=== PATIENT | female | born 1940 | race Caucasian/White ===

== ENCOUNTER 2019-09-21 08:48 | Outpatient (CLI) | payer MEDICARE, SELFPAY ==
--- NOTE | ~2019-09-21 | MR_ITS ---
EXAMINATION: MR brain/brain stem wo con DATE: 09/21/2019 09:41 INDICATION: Headache. TECHNIQUE: Magnetic resonance imaging (MRI) of the brain and brainstem was performed without intraven ous contrast. Sequences included sagittal and axial T1-weighted SE, axial diffusion-weighted FS SE, a xial T2*-weighted GRE, axial T2-weighted FLAIR Propeller, and axial T2-weighted Propeller. Apparent d iffusion coefficient (ADC) maps were created. COMPARISON: CT dated 06/25/2015 FINDINGS: Mild generalized atrophy. No acute intracranial infarction or hemorrhage. Structures of the posterior fossa are within normal limits. There are scattered moderate periventricular and subcortic al white matter changes, most likely related to small vessel ischemic disease (microangiopathy). Midl ine sagittal images are unremarkable. Orbits are symmetric without disconjugate gaze. Paranasal sinus es are unremarkable. IMPRESSION: 1. No acute intracranial abnormality. 2: Chronic age-related findings. Reviewed, dictated and finalized at location A.
== END 2019-09-21 08:49 | disposition home or self-care (01) ==
PROVIDERS: PCP Internal Medicine; Visit Provider Internal Medicine
DX: R51 Headache (principal)
CPT/HCPCS: 70551

== ENCOUNTER 2021-02-19 10:01 | Outpatient (CLI) | payer MEDICARE, SELFPAY ==
--- NOTE | 2021-02-19 11:06 | ECG_ITS ---
Measurements Intervals [place] Rate: 69 P: 42 HI: 170 QRS: -60 QRSD: 131 T: 44 QT: 377 QTc: 405 Interpretive Statements SINUS RHYTHM RIGHT BUNDLE BRANCH BLOCK LEFT ANTERIOR FASCICULAR BLOCK ABNORMAL ECG Electronically Signed On 02-19-2021 15:39:20 CDT by Rivera Henley D.O.
[2021-02-19 11:56] LABS: Basophils Absolute Auto 0.1 K/mm3 (0.0-0.1); Basophils Percent Auto 1.4 % (0.2-1.2); Eosinophils Absolute Auto 0.2 K/mm3 (0-0.3); Eosinophils Percent Auto 3.8 % (0-4.4); Hematocrit 41.7 % (37.0-47.0); Hemoglobin 13.4 g/dL (12.0-15.0); Immature Granulocyte Absolute 0.01 K/mm3 (0.00-0.031); Immature Granulocyte Percent A 0.2 % (0-0.5); Lymphocytes Absolute Auto 1.35 K/mm3 (0.9-3.2); Lymphocytes Percent Auto 23.5 % (18.3-44.2); Mean Corpuscular HGB Conc 32.1 g/dl (32-36); Mean Corpuscular Hemoglobin 32.4 pg (26-34); Mean Platelet Volume 11.1 fl (7.4-10.4); Monocytes Absolute Auto 0.6 K/mm3 (0.1-0.6); Neutrophils Absolute Auto 3.5 K/mm3 (1.3-6.7); Neutrophils Percent Auto 60.1 % (45.5-73.1); Platelet Count Result 257 k/mm3 (150-375); Red Blood Count 4.13 M/mm3 (4.2-5.4); Red Cell Distribution Width 12.5 % (11.5-14.5); White Blood Count 5.7 K/mm3 (4.5-10.0)
[2021-02-19 12:04] LABS: Urine Cotinine NEGATIVE
[2021-02-19 12:06] LABS: Hemoglobin A1C 5.3 % (<5.7)
[2021-02-19 12:09] LABS: Add Urine Microscopic? YES; Albumin Level 4.4 g/dL (3.5-5.1); Anion Gap 8 mmol/L (8-16); Appearance Urine Cloudy (Clear); Bilirubin Urine Negative (Negative); Blood Urea Nitrogen 31 mg/dL (7-17); Blood Urine Negative (Negative); Calcium 10.5 mg/dL (8.4-10.2); Carbon Dioxide 29 mmol/L (22-30); Chloride 103 mmol/L (98-107); Color Urine Yellow (Yellow); Estimated Glomerular Filt Rate 36; Glucose 86 mg/dL (65-110); Glucose Urine UA Negative (Negative); Ketones Urine Negative (Negative); Leukocyte Esterase Ur 2+ LEU/UL (Negative); Mucus Urine Rare /lpf; Nitrate Urine Positive (Negative); Potassium 4.9 mmol/L (3.4-5.0); Protein Urine Negative (Negative); RBC Urine 0-2 /hpf (0-2); Sodium 140 mmol/L (137-145); Specific Grav Ur 1.012 (1.001-1.035); Squamous Epithelial Cell Urine Rare /hpf (Few); Urobilinogen Urine Negative mg/dL (<2.0); WBC Urine 16-20 /hpf
[2021-02-19 12:21] LABS: INR 0.9; Prothrombin Time 12.4 Seconds (11.1-14.7)
== END 2021-02-19 10:02 | disposition home or self-care (01) ==
LOC: ANHSURGERY 10:06
PROVIDERS: PCP Internal Medicine; Visit Provider Orthopaedic Surgery
DX: M17.11 Unilateral primary osteoarthritis, right knee (principal); Z01.818 Encounter for other preprocedural examination; I45.10 Unspecified right bundle-branch block; I44.4 Left anterior fascicular block
CPT/HCPCS: 80048; 80307; 81001; 82040; 83036; 85025; 85610; 85730; 87077; 87081; 87086; 87088; 93005

== ENCOUNTER 2021-03-04 09:45 | Outpatient (CLI) | payer MEDICARE, SELFPAY ==
[2021-03-04 11:18] LABS: Albumin Level 4.8 g/dL (3.5-5.1); Anion Gap 13 mmol/L (8-16); Blood Urea Nitrogen 24 mg/dL (7-17); Calcium 11.1 mg/dL (8.4-10.2); Carbon Dioxide 24 mmol/L (22-30); Chloride 101 mmol/L (98-107); Estimated Glomerular Filt Rate 39; Glucose 117 mg/dL (65-110); Phosphorus 4.7 mg/dL (2.5-4.5); Potassium 5.1 mmol/L (3.4-5.0); Sodium 138 mmol/L (137-145)
[2021-03-04 12:08] LABS: Erythrocyte Sedimentation Rate 20 mm/hr (0-20)
[2021-03-04 13:55] LABS: Creatinine Urine 120.9 mg/dL; Total Protein Urine Random 14 mg/dL; Ur Ttl Prot Creatinine Ratio 0.12 mg/mg (0-0.20)
[2021-03-04 14:07] LABS: Add Urine Microscopic? YES; Appearance Urine Cloudy (Clear); Bilirubin Urine Negative (Negative); Blood Urine Negative (Negative); Color Urine Yellow (Yellow); Glucose Urine UA Negative (Negative); Ketones Urine Negative (Negative); Leukocyte Esterase Ur 3+ LEU/UL (NEGATIVE); Mucus Urine Rare /lpf; Nitrate Urine Negative (Negative); Protein Urine Negative (Negative); RBC Urine 0-2 /hpf (0-2); Specific Grav Ur 1.012 (1.001-1.035); Squamous Epithelial Cell Urine Many /hpf (Few); Urobilinogen Urine Negative mg/dL (<2.0)
[2021-03-05 12:09] LABS: Complement C3 114 mg/dL (88-165)
[2021-03-07 21:18] LABS: Complement Total CH50 >60 U/mL (31-60)
[2021-03-08 04:23] LABS: Kappa\\Lambda Light Chains 1.77 (0.26-1.65)
== END 2021-03-04 09:46 | disposition home or self-care (01) ==
PROVIDERS: Visit Provider Internal Medicine Nephrology
DX: R94.4 Abnormal results of kidney function studies (principal); N39.0 Urinary tract infection, site not specified
CPT/HCPCS: 36415; 80069; 81001; 82570; 83883; 84156; 85652; 86038; 86160; 86162; 87086

== ENCOUNTER → 2021-03-04 13:12 | Outpatient (CLI) | payer MEDICARE, SELFPAY ==
--- NOTE | ~2021-03-04 | US_ITS ---
US renal BI 03/04/2021 13:39 Procedure: Realtime transabdominal ultrasound of the kidneys and bladder. Indication: Abnormal renal function Comparison: No prior studies for comparison. Findings: Renal echotexture is normal bilaterally without hydronephrosis, contour deforming mass or r enal calculus. There is a 1.7 cm hypoechoic mass of the left kidney with low-level internal echoes. T here is no enhanced or transmission. The right kidney measures 8.7 cm and left kidney measures 10.3 c m. Bladder within normal limits. Multiple liver cysts are incidentally noted. Impression: 1: Hypoechoic 1.7 cm left renal mass, likely a complicated cyst. Correlation with CT abdomen with/wit hout contrast recommended. 2: Liver cysts. Reviewed, dictated and finalized at location A. REPAIRER Impression: 1: Hypoechoic 1.7 cm left renal mass, likely a complicated cyst. Correlation wi th CT abdomen with/without contrast recommended. 2: Liver cysts.
== END ==
PROVIDERS: PCP Internal Medicine; Visit Provider Internal Medicine Nephrology
DX: R94.4 Abnormal results of kidney function studies (principal); K76.89 Other specified diseases of liver; N28.89 Other specified disorders of kidney and ureter
CPT/HCPCS: 76775

== ENCOUNTER 2021-03-06 10:24 | Outpatient (CLI) | payer MEDICARE, SELFPAY ==
[2021-03-06 11:27] LABS: Hemoglobin 12.6 g/dL (12.0-15.0); Mean Corpuscular HGB Conc 33.2 g/dl (32-36); Mean Corpuscular Hemoglobin 31.7 pg (26-34); Mean Corpuscular Volume 95.5 fl (80-100); Mean Platelet Volume 10.4 fl (7.4-10.4); Platelet Count Result 341 k/mm3 (150-375); Red Blood Count 3.98 M/mm3 (4.2-5.4); Red Cell Distribution Width 12.2 % (11.5-14.5); White Blood Count 11.1 K/mm3 (4.5-10.0)
[2021-03-06 11:40] LABS: Albumin Level 4.6 g/dL (3.5-5.1); Anion Gap 9 mmol/L (8-16); Blood Urea Nitrogen 21 mg/dL (7-17); Carbon Dioxide 27 mmol/L (22-30); Chloride 95 mmol/L (98-107); Estimated Glomerular Filt Rate 43; Glucose 83 mg/dL (65-110); Potassium 4.4 mmol/L (3.4-5.0); Sodium 131 mmol/L (137-145)
[2021-03-06 11:43] LABS: Creatinine Urine 293.7 mg/dL
[2021-03-06 11:44] LABS: Add Urine Microscopic? YES; Appearance Urine Cloudy (Clear); Bilirubin Urine Negative (Negative); Blood Urine Negative (Negative); Color Urine Yellow (Yellow); Glucose Urine UA Negative (Negative); Hyaline Casts Urine 30-49 /lpf; Ketones Urine Trace mg/dL (Negative); Leukocyte Esterase Ur 3+ LEU/UL (NEGATIVE); Mucus Urine Rare /lpf; Nitrate Urine Negative (Negative); Protein Urine 1+ mg/dL (Negative); Sodium Urine Random 23 meq/L; Specific Grav Ur 1.015 (1.001-1.035); Squamous Epithelial Cell Urine Many /hpf (Few); Urobilinogen Urine Negative mg/dL (<2.0)
[2021-03-06 11:51] LABS: Parathyroid Intact 55.9 pg/mL (7.5-53.5)
[2021-03-06 12:44] LABS: Vitamin D 25 Hydroxy 69.6 ng/mL
[2021-03-08 15:51] LABS: Calcium/Creatinine Ratio, Ur 19 mg/g creat (10-320); Urine Calcium, Random 4.5 mg/dL (***); Urine Creatinine, Random 237 mg/dL (20-275)
[2021-03-09 16:39] LABS: Vitamin A 51 mcg/dL (38-98)
[2021-03-10 00:06] LABS: Vitamin D 1,25 (OH)2 Total 36 pg/mL (18-72); Vitamin D2 1,25 (OH)2 <8 pg/mL; Vitamin D3 1,25 (OH)2 36 pg/mL
[2021-03-12 01:01] LABS: Angiotensin Converting Enzyme 40 U/L (9-67)
== END 2021-03-06 10:25 | disposition home or self-care (01) ==
PROVIDERS: PCP Internal Medicine; Visit Provider Internal Medicine Nephrology
DX: E83.52 Hypercalcemia (principal); N39.9 Disorder of urinary system, unspecified; N39.0 Urinary tract infection, site not specified
CPT/HCPCS: 36415; 80069; 81001; 82164; 82306; 82310; 82570; 82652; 83970; 84300; 84590; 85027; 86334; 86335; 87086

== ENCOUNTER 2021-03-27 16:17 | Inpatient (IN) | payer MEDICARE, SELFPAY ==
[2021-02-19 10:34] VITALS: BP 126/56; PULSE 52; RESP 18; TEMP 36.6; O2SAT 100; BMI 27.2
[2021-03-19 09:19] VITALS: BMI 27.6
--- NOTE | 2021-03-19 09:35 | PC.NURSE ---
Report to the Outpatient Waiting Room, entrance under the green pavilion located off [facility], at time _0900_ on date _03/26/21_. OR Time: _1100 AM_. - You and your visitor will be asked a series of questions to screen for COVID 19 for your protection. - A mask is required within the hospital. - Only one visitor is allowed at this time. Patient visitors will be guided where to wait when not with patient. Preoperative COVID Testing Requirements: No COVID Test needed if: (proof is required; if not received patient will have Rapid Test prior to entry) - Patient has received COVID Vaccine at least 14 days prior to procedure date or - Patient has positive COVID test result within last 90 days of surgery date. COVID Test needed if above criteria is not met If not COVID vaccinated a COVID test must be conducted within 72 hours of surgery and patient is asked to isolate self from time of testing until procedure. You will go to the [facility] for your COVID testing. The [facility] site is located at the corner of [address] [facility]. You will only be called if COVID results are positive and your surgeon may reschedule your elective surgery date. Patients may have clear liquids (water, carbonated beverages, clear teas, apple juice) until 3 hours prior to surgery (0800 AM) with a maximum of 20 ounces. - No food from midnight until time of surgery - Infants may have breast milk until 4 hours before surgery, infant formula 6 hours prior to surgery. - Children will be allowed to drink immediately following surgery. If applicable, please bring a bottle or sippy cup to assist with drinking. Juice, water, soda, and popsicles are readily available. For infants on formula, please bring formula the day of surgery. Pacifiers are allowed. Take the following medications with a SIP of water the morning of surgery: _PROPRANOLOL, SERTRALINE____ Medications to discontinue per physician __ASPIRIN PER DR. COWAN, ALL VITAMINS AND SUPPLEMENTS 3 DAYS PRIOR TO SURGERY Date to take last dose_VITAMINS & SUPPLEMENTS 03/22/21___ Please no make-up, nail vietnamese, hairspray, perfume, deodorant, or body powder the day of surgery. No jewelry (including any body piercings) or valuables the day of surgery, leave them at home. Please take a shower or bath the night before, or the morning of, surgery with an antibacterial soap. Wear comfortable, loose fitting clothing. Children are encouraged to wear pajamas. - Jewelry must be removed prior to entering the operating room. Rings and piercings that are not removed may be cut off. - The hospital will not accept responsibility for valuables. - Please leave all valuables, including medications, at home the day of surgery. If you are going home after surgery, a licensed driver's education instructor must drive you home. - NO public transportation without another adult. - We recommend that an adult stay with you for 24 hours following discharge. - We also recommend that you do not drive, make important decision, drink alcoholic beverages, or take any drugs that were not prescribed by your health care provider for at least 24 hours after your discharge time. For Pediatric surgeries, we recommend two adults accompany the child home (only one inside the building at this time). Follow any additional instructions given to you from your surgeon. Telephone instructions given to ____PT and asked if any additional questions and then verbalized understanding. Patient advised to call surgeon office or pre surgery nurse liaison [phone] if any additional questions.
[2021-03-26] VITALS (19 sets, daily range): BP systolic 80–157; BP diastolic 40–80; PULSE 65–83; RESP 14–22; TEMP 36.2–36.7; O2SAT 95–100
--- NOTE | 2021-03-26 07:15 | WPDHPUPDATE1 ---
History and Physical Update Update Date/Time: 03/26/21 07:15 History and Physical has been reviewed, including an updated exam of the patient. There are NO changes in the patient's condition. Risks, benefits, and alternatives have been discussed and questions answered. Patient agrees to proceed with procedure.
[2021-03-26] MEDS: LACTATED RINGERS 1,000 ML 30 ML IV CONT (10:00)
[2021-03-26] MEDS: TRANEXAMIC ACID 1,000MG/ISO100 1,000 MG/100 ML BAG 200 MG IVPB (10:02)
[2021-03-26] MEDS: ACETAMINOPHEN 500 MG TABLET 1000 MG PO (10:02)
--- NOTE | 2021-03-26 10:09 | WPDANESEPPF ---
Anes - Initial Pre Proc Eval Procedure: Operation Date: 03/26/21 11:00 Proposed Procedures p Right Total Knee Arthroplasty - Gary Sexton MD Date/Time: 03/26/21 10:09 Surgeon: Gary Sexton MD Pre Op Diagnosis: Right knee djd Patient Data Age: 80 Gender: F Height: 1.63 m Weight: 73 kg Last Vital Signs Temp 36.6 C 02/19/21 10:34 Pulse 52 L 02/19/21 10:34 Resp 18 02/19/21 10:34 BP 126/56 L 02/19/21 10:34 Pulse Ox 100 02/19/21 10:34 Allergies Allergy/AdvReac Type Severity Reaction Status Date / Time gabapentin Allergy Unknown UNKNOWN-PT Verified 03/19/21 09:17 UNABLE TO RECALL prochlorperazine Allergy Unknown Unknown-PT Verified 03/19/21 09:17 UNABLE TO RECALL tramadol Allergy Unknown UNKNOWN-PT Verified 03/19/21 09:17 UNABLE TO RECALL Home Medications Medication Instructions Recorded Confirmed Type atorvastatin 40 mg tablet 40 mg PO HS 06/08/19 03/19/21 History docusate sodium [Stool Softener] 50 mg PO HS 06/08/19 03/19/21 History doxepin 100 mg capsule 100 mg PO HS 06/08/19 03/19/21 History multivitamin 1 cap PO DAILY 06/08/19 03/19/21 History chlorhexidine gluconate 4 % 1 applic TOPICAL ONCE #237 ml 01/29/21 03/19/21 Rx topical liquid memantine 10 mg PO BID 02/19/21 03/19/21 History propranolol 60 mg PO QAM 02/19/21 03/19/21 History sertraline 50 mg PO QAM 02/19/21 03/19/21 History vitamin A-vitamin C-vit E-min 1 tablet PO QAM 02/19/21 03/19/21 History [Ocuvite] cholecalciferol (vitamin D3) 25 mcg PO DAILY 02/20/21 03/19/21 History [Vitamin D3] aspirin 81 mg tablet,delayed 81 mg PO DAILY 03/01/21 03/19/21 History release doxepin 25 mg capsule 10 mg PO HS cap 03/01/21 03/19/21 History Patient hx anesthesia problems: none Family hx anesthesia problems: none Results Review: All pre-operative results and documents have been reviewed as part of the pre-operative evaluation. FORMERLY [facility], [facility]–1983 Past Medical History Medical History Bilateral knee pain Hypertension Left knee DJD Right knee DJD Shortness of breath Varicose vein of leg Vision abnormalities Weight gain Surgical History Surgical History H/O Spinal surgery 2 operations- Dr. Dmitri Villasenor at [facility] Orthopaedic H/O: hysterectomy 1968 History of bladder surgery [id number] History of cardiac radiofrequency ablation (RFA) 2015, Dr. Jon Mota at [place], [place] [facility] Hx of tonsillectomy 1947 Family History Family History Other Heart disease Social History Social History Smoking status: Never smoker Second hand tobacco smoke exposure: No Additional smoking assessment comments: PT DENIES ALL FORMS OF TOBACCO USE Alcohol intake: never Substance use: never Substance use type: does not use Living arrangements: alone Spiritual care concerns: No Anes - Eval Final PreProcedure Day of Procedure 03/26/21 10:09 Patient weight: overweight Heart: regular rate and rhythm Lungs: clear to auscultation Airway: Mallampati scale class II Neurological: other (alert) Last oral intake: >/= 8 hours ASA classification: III Emergent: no Anesthetic plan: proceed Anesthesia type and monitoring: general LMA and standard monitoring Results Review: All pre-operative results and documents have been reviewed as part of the pre-operative evaluation. Informed Consent: The patient's anesthetic plan and its attendant risks and benefits were discussed with the patient/family/POA. Questions were solicited and answers provided to the satisfaction of the patient/family/POA.
--- NOTE | 2021-03-26 10:35 | WPDANESPNB ---
Anes - Peripheral Nerve Block Date/Time: 03/26/21 10:35 I have discussed with the patient/family/POA the placement of a peripheral nerve block for post-operative pain management, including associated risks, benefits, complications, and side effects. Alternative methods of post-operative analgesia were detailed. Questions were solicited and answers provided to the satisfaction of the patient/family/POA. Time-Out: A pre-procedural Time-Out was completed immediately before starting the procedure and confirmed: Patient Identification, Site, Procedure, Patient Position and the Availability of Requisite Equipment. Clinical Indications: Acute post-operative pain management requested by the operative surgeon. Nerve Block Insertion Note Anes-nerve block: adductor canal right Patient position: supine Skin prep: chlorhexidine Needle: 22 gauge, stimulating, insulated echogenic needle. Needle length: 80 mm Technique: ultrasound Technique comment: fent 50mcg Injectate: bupivacaine 0.5% with epi 5 mcg/ml (30ml no epi) and dexamethasone (mg) (4) Observations: tolerated well Complications: none Procedure start time:: 1030 Procedure end time:: 1033
[2021-03-26] MEDS: ceFAZolin 2 GM/D5W 50 ML 2 GM/50 ML BAG IVPB ×2 (10:40→18:10)
--- NOTE | 2021-03-26 13:00 | SUR.PHASEI ---
1256 xrays right knee done. called dr agudelo about arthrymias ,states apc and aware.
--- NOTE | 2021-03-26 13:09 | P.OP_ITS ---
Procedure Note - Detailed Date of Procedure 03/26/21 Pre-op Diagnosis Right knee djd Post-op Diagnosis same Procedure Performed R TKA Surgeon Gary Sexton MD Anesthesia general Description of Procedure THE RIGHT KNEE WAS PREPPED AND DRAPED IN THE STERILE FASHION. A MIDLINE SKIN INCISION WAS MADE. A MEDIAL PARAPATELLAR ARTHROTOMY WAS MADE. THE PATELLA WAS EVERTED. THERE WAS TRICOMPARTMENT DJD. THERE WAS SEVERE PATELLA DJD SIGNIFICANT WEAR. AN INTRAMEDULLARY EWA WAS PLACED IN THE FEMUR. A DISTAL FEMORAL CUT WAS MADE IN 5 DEGREES OF VALGUS REMOVING APPROXIMATELY 9 MM OF BONE FROM THE DISTAL FEMUR. THE FEMUR WAS SIZED TO 65. A 65 FEMORAL CUTTING BLOCK WAS PLACED IN 3 DEGREES OF EXTERNAL ROTATION AND IN ALIGNMENT WITH DOUG'S LINE AND THE TRANSEPICONDYLAR AXIS. ANTERIOR POSTERIOR AND CHAMFER CUTS WERE MADE. THE CUTS WERE EXCELLENT. NEXT AN INTRAMEDULLARY CUTTING GUIDE WAS PLACED IN THE TIBIA. A TRANS TIBIAL CUT WAS MADE ALONG THE LONG AXIS OF THE TIBIA. APPROXIMATELY 10 MM OF BONE WAS REMOVED FROM THE HIGH SIDE OF THE TIBIA. THE TIBIA WAS THEN PLANED TO A SMOOTH SURFACE. POSTERIOR FEMORAL OSTEOPHYTES WERE REMOVED FROM THE FEMORAL CONDYLES. A 71 TIBIAL TRIAL WAS PLACED IN ALIGNMENT WITH THE 1/3 MEDIAL ASPECT OF THE TIBIAL TUBERCLE. THEN A 65 FEMORAL TRIAL COMPONENT WAS PLACED. BOTH HAD EXCELLENT FITS. EVENTUALLY A 10 MM CR POLYETHYLENE TRIAL COMPONENT WAS PLACED. THE KNEE WAS TAKEN THROUGH A RANGE OF MOTION. THE KNEE CAME OUT TO FULL EXTENSION. THERE WAS NO ABNORMAL TILT TO THE PATELLA. THERE WAS GOOD A/P AND VARUS/VALGUS STABILITY. THERE WAS NO EXCESSIVE ROLL BACK WITH FLEXION. THE TRIAL COMPONENTS WERE REMOVED. THEN A 65 FEMORAL COMPONENT AND 71 TIBIAL COMPO NENT WITH A 10 CR POLYETHYLENE COMPONENT WERE CEMENTED INTO PLACE. ONCE THE CEMENT WAS HARD THE KNEE WAS TAKEN THROUGH A ROM AGAIN AND FOUND TO BE STABLE WITH NO PATELLA TILT NO EXCESSIVE ROLL BACK WITH FLEXION AND GOOD STABILITY WITH COMPLETE AND FULL EXTENSION. THE KNEE WAS IRRIGATED WITH STERILE BETADINE AND WATER FOR ABOUT 3 MINUTES. THE BLEEDERS WERE CAUTERIZED. THE ARTHROTOMY WAS REPAIRED WITH NUMBER 1 VICRYL. THE SUB CUTANEOUS LAYER WITH 2-0 VICRYL AND THE SKIN WITH RUBA. THE WOUND WAS WASHED AND A STERILE DRESSING WAS APPLIED. PATIENT WAS EXTUBATED. Estimated Blood Loss -100.0 Pathology none sent Complications No immediate complications Condition stable Disposition PACU
--- NOTE | 2021-03-26 16:48 | ADMGEN ---
This patient, Vi Palmer, was admitted to Medical Room 246-01. Patient/family oriented to hospital policies and general routines including ID bracelet, bed and alarms, visiting hours, pain management, procedures, bathroom and other care routines, personal items, smoking policy, room service/diet, and visiting hours. Information on how to activate the Rapid Response Team has been discussed. Patient/Family are encouraged to report perceived risks to care and to ask questions if they do not understand what they are told or what they should do.
[2021-03-26] MEDS: oxyCODONE/ACETAMINOPHEN (*CRX) 5-325 MG TABLET 1 TABLET PO ×2 (16:58→21:45)
[2021-03-26] MEDS: CELECOXIB 200 MG CAPSULE PO (18:10)
[2021-03-26] MEDS: SODIUM CHLORIDE 0.9% IV 1,000 ML 125 ML IV CONT (18:52)
--- NOTE | 2021-03-26 19:00 | WPDCN ---
Assessment and Plan Assessment and plan (1) Right knee DJD: Qualifiers: Osteoarthritis type: primary Qualified Code(s): M17.11 - Unilateral primary osteoarthritis, right knee Code(s): M17.11 - Unilateral primary osteoarthritis, right knee Status: Acute Assessment and Plan: Postoperative day 0 status post right total hip arthroplasty. Wound care, pain control, and DVT prophylaxis will be to Dr. Sexton. (2) Hypertension: Code(s): I10 - Essential (primary) hypertension Status: Chronic Assessment and Plan: Blood pressures have been soft this evening and I will give her a bolus of normal saline. She seems asymptomatic with this. (3) Hyperlipidemia: Code(s): E78.5 - Hyperlipidemia, unspecified Status: Acute Assessment and Plan: Continue statin check LFTs in a.m. (4) Memory loss: Code(s): R41.3 - Other amnesia Status: Acute Assessment and Plan: Initiate fall precautions. Continue memantine. (5) Depression with anxiety: Code(s): F41.8 - Other specified anxiety disorders Status: Acute Assessment and Plan: No acute issues. Continue sertraline and doxepin Additional Plan Thank you for allowing us to participate in this patient's care. Please do not hesitate to contact us with any questions. Supervising physician for this medical consultation is Dr. Jamin Rust. HPI Data of Consult Date/Time: 03/26/21 19:00 Requesting Physician: Gary Sexton MD Primary Care Provider: Srinivasan PringleMD Consult Narrative Narrative: This is a very pleasant 80-year-old female with hypertension, hyperlipidemia, memory loss, and degenerative joint disease whom the hospitalist service has been consulted for postoperative medical management. She has had longstanding pain in her right knee that has been amenable to conservative outpatient treatment and thus she elected for replacement today. Her surgery was performed under general anesthesia with no immediate complications documented an estimated blood loss of 100 mL. At the time my evaluation her pain is pretty well controlled and she rates it a 3/10 and she describes it as an aching discomfort. Her appetite has been good postoperatively and she ate nearly 100% of her dinner this evening. She denies fever, chills, sweats, chest pain, shortness of breath, nausea, and vomiting. She also denies paresthesias, skin color, and temperature changes distal to the surgical site. On discharge I believe she is going to a swing bed closer to her home in [place]. Review of Systems Review of Systems: Twelve systems were reviewed. No recent cold or flu symptoms. She denies cough and shortness of breath. No history of venous thromboembolism. Except as documented, all other systems were reviewed and are negative. ON LICENSE OF [facility] Past Medical History Medical History (Updated 03/26/21 @ 23:19 by Ebony Ortiz PA-C) Depression with anxiety Hyperlipidemia Hypertension Memory loss Stress incontinence Varicose vein of leg Surgical History Surgical History (Updated 03/26/21 @ 23:16 by Ebony Ortiz PA-C) History of arthroplasty of right knee (03/26/21) History of bladder surgery 1990 and 1992 History of cardiac radiofrequency ablation (RFA) 2016, Dr. Jon Mota at [facility] . History of hysterectomy (1967) History of spinal surgery x2 History of tonsillectomy (1947) Family History Family History Other Heart disease Social History Social History (Updated 03/26/21 @ 23:17 by Ebony Ortiz PA-C) Social History: Surrogate decision maker: Jennifer Seay, granddaughter. Code status: Full code. Smoking status: Never smoker Second hand tobacco smoke e
[2021-03-26] MEDS: SODIUM CHLORIDE 0.9% IV 500 ML IV CONT (19:16)
[2021-03-26] MEDS: SENNA/DOCUSATE SODIUM TABLET 2 TAB PO (21:39)
[2021-03-26] MEDS: MEMANTINE 10 MG TABLET PO (21:39)
[2021-03-26] MEDS: ATORVASTATIN 40 MG TABLET PO (21:39)
[2021-03-26] MEDS: FAMOTIDINE 20 MG TABLET PO (21:39)
[2021-03-26] MEDS: DOXEPIN HCL 10 MG CAPSULE PO (21:39)
[2021-03-26] MEDS: DOXEPIN HCL 25 MG CAPSULE 100 MG PO (21:39)
[2021-03-26] MEDS: DOCUSATE SODIUM 100 MG CAPSULE PO (21:39)
[2021-03-27] VITALS (11 sets, daily range): BP systolic 86–133; BP diastolic 40–81; PULSE 69–75; RESP 12–20; TEMP 35.8–36.8; O2SAT 88–100
--- NOTE | ~2021-03-27 | XR_ITS ---
EXAMINATION: XR knee RT 2V DATE: 03/26/2021 13:10 LEGAL TRANSCRIBER INDICATION: Right total knee arthroplasty TECHNIQUE: 2 views right knee FINDINGS: There is a right total knee arthroplasty in expected position. Subcutaneous gas with fluid and air in the joint and overlying skin aung are consistent with recent surgery. No evidence of p eriprosthetic fracture. IMPRESSION: 1. Recent right total knee arthroplasty. Reviewed, dictated and finalized at location B. L TRANSCRIBER
--- NOTE | ~2021-03-27 | US_ITS ---
EXAMINATION: US carotid duplex BI DATE: 03/28/2021 15:22 INDICATION: Dizziness. TECHNIQUE: Grayscale, color Doppler, and pulsed Doppler images of the cervical carotid arteries were obtained. The degree of vessel stenosis is placed in one of the following categories: normal, <50%, 5 0-69%, >=70% but less than near-occlusion, near-occlusion, or total occlusion. Note that percent sten osis relative to normal distal artery lumen diameter is indirectly measured from velocity measurement s as described by Zeferino, et al. Radiology 2003; 229:340-346. COMPARISON: Neck CTA 07/19/2015 FINDINGS: RIGHT: The right common carotid artery (CCA) peak systolic velocity (PSV) is 109 cm/s. The right internal ca rotid artery (ICA) PSV is 114 cm/s. The right ICA end-diastolic velocity (EDV) is 22 cm/s. The right ICA/CCA PSV ratio is 1.1. Grayscale and color Doppler images yield an estimate of <50% diameter reduc tion from plaque in the ICA. There is antegrade flow in the right vertebral artery. LEFT: The left CCA PSV is 122 cm/s. The left ICA PSV is 109 cm/s. The left ICA EDV is 32 cm/s. The left ICA /CCA PSV ratio is 0.9. Grayscale and color Doppler images yield an estimate of <50% diameter reductio n from plaque in the ICA. There is antegrade flow in the left vertebral artery. IMPRESSION: 1. <50% stenosis in the right internal carotid artery. 2. <50% stenosis in the left internal carotid artery. Reviewed, dictated and finalized at location A. E GLASS INSTALLER
--- NOTE | ~2021-03-27 | XR_ITS ---
EXAMINATION: XR abdomen/kub 1V DATE: 03/30/2021 11:14 INDICATION: Abdominal pain. TECHNIQUE: A supine view of the abdomen was obtained. COMPARISON: None. FINDINGS: There are no dilated loops of bowel. There is a moderate volume of stool in the colon. Ther e are changes of anterior and posterior fusion procedures from L4 to S1. There is a 3 mm calcificatio n in left pelvis. IMPRESSION: 1. Normal bowel gas pattern. 2. 3 mm calcification in left pelvis, which may be a phlebolith or less likely a distal ureteral ston e. Reviewed, dictated and finalized at location A. REIGHT OPERATIONS AGENT IMPRESSION: 1. Normal bowel gas pattern. 2. 3 mm calcification in left pelvis, which may be a phlebolith or less likely a distal ureteral stone.
[2021-03-27] MEDS: ceFAZolin 2 GM/D5W 50 ML 2 GM/50 ML BAG IVPB ×2 (02:09→09:32)
[2021-03-27] MEDS: SODIUM CHLORIDE 0.9% IV 1,000 ML 125 ML IV CONT (05:53)
[2021-03-27 05:55] LABS: Basophils Percent Auto 0.3 % (0.2-1.2); Eosinophils Percent Auto 0.1 % (0-4.4); Hematocrit 30.8 % (37.0-47.0); Hemoglobin 9.8 g/dL (12.0-15.0); Immature Granulocyte Absolute 0.04 K/mm3 (0.00-0.031); Immature Granulocyte Percent A 0.3 % (0-0.5); Lymphocytes Absolute Auto 0.89 K/mm3 (0.9-3.2); Lymphocytes Percent Auto 7.6 % (18.3-44.2); Mean Corpuscular HGB Conc 31.8 g/dl (32-36); Mean Corpuscular Hemoglobin 31.9 pg (26-34); Mean Corpuscular Volume 100.3 fl (80-100); Mean Platelet Volume 11.7 fl (7.4-10.4); Monocytes Absolute Auto 1.2 K/mm3 (0.1-0.6); Monocytes Percent Auto 10.3 % (2.6-8.5); Neutrophils Absolute Auto 9.5 K/mm3 (1.3-6.7); Neutrophils Percent Auto 81.4 % (45.5-73.1); Platelet Count Result 167 k/mm3 (150-375); Red Blood Count 3.07 M/mm3 (4.2-5.4); Red Cell Distribution Width 12.5 % (11.5-14.5); White Blood Count 11.7 K/mm3 (4.5-10.0)
[2021-03-27] MEDS: ACETAMINOPHEN 500 MG TABLET 1000 MG PO ×2 (05:55→14:41)
[2021-03-27 06:18] LABS: Alanine Aminotransferase 15 U/L (4-35); Albumin Level 3.3 g/dL (3.5-5.1); Alkaline Phosphatase 55 U/L (38-126); Anion Gap 7 mmol/L (8-16); Aspartate Amino Transferase 25 U/L (14-36); Bilirubin,Total 0.4 mg/dL (0.2-1.3); Blood Urea Nitrogen 24 mg/dL (7-17); Calcium 8.6 mg/dL (8.4-10.2); Carbon Dioxide 20 mmol/L (22-30); Chloride 103 mmol/L (98-107); Estimated CRCL calculation 30 ml/min; Estimated Glomerular Filt Rate 48; Glucose 96 mg/dL (65-110); Magnesium 1.8 mg/dL (1.6-2.3); Potassium 3.9 mmol/L (3.4-5.0); Sodium 130 mmol/L (137-145)
--- NOTE | 2021-03-27 07:46 | PCOTNOTE ---
Attempted OT evaluation, per RN hold due to low BP. will follow and attempt at later time.
--- NOTE | 2021-03-27 08:00 | PM.IMPN ---
Progress Note: A&P Assessment and Plan (1) Hypotension: Code(s): I95.9 - Hypotension, unspecified Status: Acute Assessment and Plan: BP low at 86/46 Give 500ml fluid bolus Hold propanolol Trend BP Adjust therapy as needed (2) Right knee DJD: Qualifiers: Osteoarthritis type: primary Qualified Code(s): M17.11 - Unilateral primary osteoarthritis, right knee Code(s): M17.11 - Unilateral primary osteoarthritis, right knee Status: Acute Assessment and Plan: Postoperative day 1 status post right total hip arthroplasty Post op management per Dr. Sexton Wound care per ortho pain control: Percocet 1 tab PO Q4hr PRN, Nydia 7.5mg pO Q4hr PRN, Tylenol 1000mg PO Q6hr PRN Anti-emetic: Zofran 4mg IV Q4hr PRN Bowel maintenance: Senna, miralax, and colace Cefazolin x 3 bags DVT prophylaxis per ortho aspirin 650mg PO daily (3) Hypertension: Code(s): I10 - Essential (primary) hypertension Status: Chronic Assessment and Plan: Current BP is 86/46 Blood pressures have been soft normal saline 125ml/hr stopped this am asymptomatic Continue propanolol 60mg PO daily (4) Hyperlipidemia: Code(s): E78.5 - Hyperlipidemia, unspecified Status: Acute Assessment and Plan: Continue statin LFT ast/alt (5) Memory loss: Code(s): R41.3 - Other amnesia Status: Acute Assessment and Plan: Initiate fall precautions Patient aware of memory changes Sometimes has a hard time thinking about certain words Continue memantine (6) Depression with anxiety: Code(s): F41.8 - Other specified anxiety disorders Status: Acute Assessment and Plan: No acute issues Continue sertraline and doxepin Time Spent With Patient Time with patient: 25 - 35 minutes Subjective Date/time seen: 03/27/21 0800 Interval history: Date/Time: 03/26/21 19:00 Narrative: This is a very pleasant 80-year-old female with hypertension, hyperlipidemia, memory loss, and degenerative joint disease whom the hospitalist service has been consulted for postoperative medical management. She has had longstanding pain in her right knee that has been amenable to conservative outpatient treatment and thus she elected for replacement today. Her surgery was performed under general anesthesia with no immediate complications documented an estimated blood loss of 100 mL. At the time my evaluation her pain is pretty well controlled and she rates it a 3/10 and she describes it as an aching discomfort. Her appetite has been good postoperatively and she ate nearly 100% of her dinner this evening. She denies fever, chills, sweats, chest pain, shortness of breath, nausea, and vomiting. She also denies paresthesias, skin color, and temperature changes distal to the surgical site. On discharge I believe she is going to a swing bed closer to her home in [place]. Date/Time seen: 03/27/21 0800 Patient is sitting up in chair today. Blood pressure is noted to be low. Patient did state that she has experienced hypotension chronically. Patient said that she does get very dizzy at times however she did say that it comes and goes and sometimes she can go a month without experiencing any difficulties. Patient did state that when she does get dizzy she knows to sit back down. She was also advised to change positions slowly. Currently she has pain of 3/10 in her knee. She denies chest pain, shortness of breath, nausea, vomiting, diarrhea, constipation, abdominal pain. Patient does not know why she takes propanolol. She stated that she gets up from a heart doctor in [place]. Patient also concerned about her memory loss. Review of Systems Review of Systems: All systems reviewed & are unremarkable except as noted in HPI and below Exam Const: General: cooperative, healthy appearing, no acute distress, well developed, alert and awake Nutr
[2021-03-27] MEDS: polyethylene glycoL 3350 17 GM POWD.PACK PO (08:39)
[2021-03-27] MEDS: FAMOTIDINE 20 MG TABLET PO ×2 (08:40→21:20)
[2021-03-27] MEDS: MULTIVITAMINS THERAPEUTIC TAB (*BKC) 1 TABLET PO (08:40)
[2021-03-27] MEDS: SERTRALINE HCL 50 MG TABLET PO (08:40)
[2021-03-27] MEDS: OPTI-GEN TAB 1 TABLET PO (08:40)
[2021-03-27] MEDS: CELECOXIB 200 MG CAPSULE PO ×2 (08:40→17:17)
[2021-03-27] MEDS: MEMANTINE 10 MG TABLET PO ×2 (08:40→21:21)
[2021-03-27] MEDS: CHOLECALCIFEROL 1,000 UNITS TABLET 1000 UNITS PO (08:40)
[2021-03-27] MEDS: ASPIRIN 325 MG ENTERIC TABLET 650 MG PO (08:40)
[2021-03-27] MEDS: SENNA/DOCUSATE SODIUM TABLET 2 TAB PO (08:40)
[2021-03-27] MEDS: SODIUM CHLORIDE 0.9% IV 500 ML 999 ML IV CONT (08:41)
[2021-03-27 11:59] LABS: Glucose Point of Care 91 mg/dl (65-105)
--- NOTE | 2021-03-27 16:30 | PM.PNORT ---
Progress Note: A&P Additional Plan POD 1. WILL WATCH HER BP OVERNIGHT. MAY DC TMRW IF STABLE. Subjective Subjective Date/Time Seen: 03/27/21 1POD 1 DOING WELL. HER BP IS LOW. BP MEDS STOPPED. GOOD PROGRESS WITH PT, NO CALF PAIN Review of Systems Review of Systems: All systems reviewed & are unremarkable except as noted in HPI and below Exam Extrem: Other: VSS AFEBRILE DRESSING DRY NV INTACT NEG HOMANS SIGN, CALF SOFT NON TENDER Objective Data Vital Signs Vital Signs: Vital Signs - 24 hr 03/26/21 16:55 03/26/21 17:10 03/26/21 17:40 Temperature 36.4 C 36.2 C L 36.5 C Pulse Rate 76 71 71 Respiratory Rate 16 16 16 Blood Pressure 110/56 L 127/54 L 118/56 L Pulse Oximetry 99 99 98 03/26/21 18:40 03/26/21 20:50 03/27/21 00:42 Temperature 36.2 C L 36.3 C L 36.2 C L Pulse Rate 81 69 70 Respiratory Rate 20 18 20 Blood Pressure 80/42 L 90/40 L 94/40 L Pulse Oximetry 97 95 93 03/27/21 03:48 03/27/21 05:13 03/27/21 07:49 Temperature 36.0 C L Pulse Rate 71 70 Respiratory Rate 20 Blood Pressure 94/43 L 110/60 86/46 L Pulse Oximetry 93 03/27/21 09:40 03/27/21 10:31 03/27/21 14:09 Temperature 36.8 C 36.3 C L Pulse Rate 74 75 Respiratory Rate 16 12 Blood Pressure 114/46 L 110/60 133/46 L Pulse Oximetry 97 88 L Intake/Output Intake/Output: Intake & Output 03/24/21 03/25/21 03/26/21 03/27/21 23:59 23:59 23:59 23:59 Intake Total 800 1290 Balance 800 1290 Meds/Results Medications: Active Medications Generic Name Dose Route Start Last Admin Trade Name Freq PRN Reason Stop Dose Admin Acetaminophen 1,000 mg 03/26/21 16:24 03/27/21 14:41 Acetaminophen 500 Mg Tablet PO 1,000 mg Q6H PRN Administration Pain Rated 1-3 Aspirin 650 mg 03/27/21 09:00 03/27/21 08:40 Aspirin 325 Mg Enteric Tablet PO 650 mg DAILY JOSEPH Administration Atorvastatin Calcium 40 mg 03/26/21 21:00 03/26/21 21:39 Atorvastatin 40 Mg Tablet PO 40 mg HS JOSEPH Administration Celecoxib 200 mg 03/26/21 17:00 03/27/21 08:40 Celecoxib 200 Mg Capsule PO 200 mg BIDWM JOSEPH Administration Diazepam 5 mg 03/26/21 16:24 Diazepam (*Crx) 5 Mg Tablet PO Q8H PRN Spasms Diphenhydramine HCl 25 mg 03/26/21 16:24 Diphenhydramine Hcl Inj 50 Mg/Ml Vial IV PUSH Q6H PRN Itching Docusate Sodium 100 mg 03/26/21 21:00 03/26/21 21:39 Docusate Sodium 100 Mg Capsule PO 04/25/21 20:59 100 mg HS JOSEPH Administration Doxepin HCl 10 mg 03/26/21 21:00 03/26/21 21:39 Doxepin Hcl 10 Mg Capsule PO 10 mg HS JOSEPH Administration Doxepin HCl 100 mg 03/26/21 21:00 03/26/21 21:39 Doxepin Hcl 25 Mg Capsule PO 04/25/21 20:59 100 mg HS JOSEPH Administration Famotidine 20 mg 03/26/21 21:00 03/27/21 08:40 Famotidine 20 Mg Tablet PO 20 mg Q12HR JOSEPH Administration Sodium Chloride 1,000 mls @ 125 mls/hr 03/27/21 05:15 03/27/21 05:53 Normal Saline Iv IV CONT 125 mls/hr .Q8H JOSEPH Administration Memantine 10 mg 03/26/21 21:00 03/27/21 08:40 Memantine 10 Mg Tablet PO 10 mg Q12HR JOSEPH Administration Multivitamins Therapeutic 1 tablet 03/27/21 09:00 03/27/21 08:40 Multivitamins Therapeutic Tab (*Bkc) PO 1 tablet DAILY JOSEPH Administration Multivitamins/Minerals 1 tablet 03/27/21 09:00 03/27/21 08:40 Opti-Gen Tab PO 04/26/21 08:59 1 tablet QAM JOSEPH Administration Naloxone HCl 0.1 mg 03/26/21 16:24 Naloxone Hcl 0.4 Mg/Ml Vial IV PUSH Q2M PRN Opiate Reversal Ondansetron HCl 4 mg 03/26/21 16:24 Ondansetron Inj 4 Mg/2 Ml Vial IV PUSH Q4H PRN Nausea And Vomiting Oxycodone HCl 7.5 mg 03/26/21 16:24 Oxycodone Hcl (*Crx) 2.5 Mg Tab Ir PO Q4H PRN Pain Rated 7-10 Oxycodone/Acetaminophen 1 tablet 03/26/21 16:24 03/26/21 21:45 Oxycodone/Acetaminophen (*Crx) 5-325 Mg Tablet PO 1 tablet Q4H PRN Administration Pain Rated 4-6 Polyethylene Glycol 17 gm 12
[2021-03-27] MEDS: ATORVASTATIN 40 MG TABLET PO (21:20)
[2021-03-27] MEDS: DOXEPIN HCL 25 MG CAPSULE 100 MG PO (21:20)
[2021-03-27] MEDS: DOXEPIN HCL 10 MG CAPSULE PO (21:21)
[2021-03-28] VITALS (7 sets, daily range): BP systolic 85–144; BP diastolic 40–78; PULSE 48–103; RESP 18; TEMP 35.8–36.2; O2SAT 94–97
--- NOTE | 2021-03-28 | ECHO_ITS ---
Patient Info Name: Vi Palmer Age: 80 years : 1940 Gender: Female Ht: 64 in Wt: 153 lbs BSA: 1.79 m2 HR: 78 bpm BP: 86 / 46 mmHg Heart Rhythm: Indeterminant Technical Quality: Good Exam Date: 03/28/2021 3:29 PM Exam Location: [facility] Pulmonary Exam Room: 246 Patient Status: Inpatient Admit Date: 03/28/2021 Staff Ordering Physician: Severo Mijares Project Leader: CONCHITA Attending Provider: Gary Sexton MD Referring Physician: Dyllan LUU; Exam Type: CA echo doppler color flow Study Info Indications - HYPOTENSION Complete two-dimensional, color flow and Doppler transthoracic echocardiogram is performed. Summary 1. Complete two-dimensional, color flow and Doppler transthoracic echocardiogram is performed. 2. Normal left ventricular size with septal hypertrophy and hyperdynamic left ventricular systolic function. Estimated ejection fraction is greater than 70%. No segmental wall motion abnormalities. Diastolic function indeterminate. 3. Left atrial chamber dimension is mildly enlarged. 4. There is moderate aortic valve stenosis with a peak velocity of 331 cm/s. There is severe aortic valve calcification.The valve area is 1.0-1.1 cm2. Mean gradient 22 mmHg. 5. No pulmonary hypertension, estimated pulmonary arterial systolic pressure is 33 mmHg. 6. Echo lucent structures in the liver perhaps hepatic cysts. 7. Probably sinus rhythm with PVCs. 8. Technically difficult study. Left Ventricle Left ventricular chamber dimension is normal. Left ventricular systolic function is hyperdynamic, estimated at >70%. There is no increased left ventricular wall thickness. Left ventricular septal wall motion is normal. The left ventricular diastolic function is indeterminate. Right Ventricle Right ventricular chamber dimension is normal. Right ventricular systolic function is normal. Left Atria Left atrial chamber dimension is mildly enlarged. Right Atria Right atrial chamber dimension is normal. Aortic Valve The aortic valve is trileaflet. There is no aortic valve sclerosis. There is moderate aortic valve stenosis with a peak velocity of 331 cm/s. There is severe aortic valve calcification.The valve area is 1.0-1.1 cm2. Mean gradient 22 mmHg. There is no aortic valve regurgitation. There is severe aortic valve calcification. Pulmonic Valve The pulmonic valve is normal. There is no pulmonic valve stenosis. There is no pulmonic regurgitation. Mitral Valve The mitral valve has normal leaflets. There is no mitral valve stenosis. There is trace mitral valve regurgitation. Tricuspid Valve The tricuspid valve leaflets are normal. There is no significant tricuspid valve stenosis. There is trace tricuspid valve regurgitation. No pulmonary hypertension, estimated pulmonary arterial systolic pressure is 33 mmHg. Pericardium/Pleural The pericardium appears normal. There is no pericardial effusion. Inferior Vena Cava Normal inferior vena cava with >50% collapse upon inspiration consistent with Empty right atrial pressure, 10 mmHg. Aorta The aortic root size at the sinus of Valsalva is normal. The prox ascending aorta size is normal. Left Ventricular Outflow Tract Name Value Normal LVOT 2D
[2021-03-28 06:21] LABS: Basophils Absolute Auto 0.1 K/mm3 (0.0-0.1); Basophils Percent Auto 0.9 % (0.2-1.2); Eosinophils Absolute Auto 0.1 K/mm3 (0-0.3); Eosinophils Percent Auto 2.2 % (0-4.4); Hematocrit 26.8 % (37.0-47.0); Hemoglobin 8.7 g/dL (12.0-15.0); Immature Granulocyte Absolute 0.02 K/mm3 (0.00-0.031); Immature Granulocyte Percent A 0.4 % (0-0.5); Lymphocytes Absolute Auto 0.63 K/mm3 (0.9-3.2); Lymphocytes Percent Auto 11.4 % (18.3-44.2); Mean Corpuscular HGB Conc 32.5 g/dl (32-36); Mean Corpuscular Hemoglobin 31.8 pg (26-34); Mean Corpuscular Volume 97.8 fl (80-100); Mean Platelet Volume 11.2 fl (7.4-10.4); Monocytes Absolute Auto 0.8 K/mm3 (0.1-0.6); Monocytes Percent Auto 14.9 % (2.6-8.5); Neutrophils Absolute Auto 3.9 K/mm3 (1.3-6.7); Neutrophils Percent Auto 70.2 % (45.5-73.1); Platelet Count Result 172 k/mm3 (150-375); Red Blood Count 2.74 M/mm3 (4.2-5.4); Red Cell Distribution Width 12.4 % (11.5-14.5); White Blood Count 5.5 K/mm3 (4.5-10.0)
[2021-03-28 06:46] LABS: Alanine Aminotransferase 9 U/L (4-35); Albumin Level 3.3 g/dL (3.5-5.1); Alkaline Phosphatase 67 U/L (38-126); Anion Gap 8 mmol/L (8-16); Aspartate Amino Transferase 30 U/L (14-36); Bilirubin,Total 0.3 mg/dL (0.2-1.3); Blood Urea Nitrogen 26 mg/dL (7-17); Calcium 8.8 mg/dL (8.4-10.2); Carbon Dioxide 20 mmol/L (22-30); Chloride 101 mmol/L (98-107); Estimated CRCL calculation 28 ml/min; Estimated Glomerular Filt Rate 43; Glucose 105 mg/dL (65-110); Magnesium 1.8 mg/dL (1.6-2.3); Sodium 129 mmol/L (137-145)
[2021-03-28] MEDS: FAMOTIDINE 20 MG TABLET PO ×2 (09:14→20:22)
[2021-03-28] MEDS: SENNA/DOCUSATE SODIUM TABLET 2 TAB PO ×2 (09:14→20:21)
[2021-03-28] MEDS: CHOLECALCIFEROL 1,000 UNITS TABLET 1000 UNITS PO (09:14)
[2021-03-28] MEDS: ASPIRIN 325 MG ENTERIC TABLET 650 MG PO (09:14)
[2021-03-28] MEDS: OPTI-GEN TAB 1 TABLET PO (09:15)
[2021-03-28] MEDS: polyethylene glycoL 3350 17 GM POWD.PACK PO (09:15)
[2021-03-28] MEDS: MULTIVITAMINS THERAPEUTIC TAB (*BKC) 1 TABLET PO (09:15)
[2021-03-28] MEDS: SERTRALINE HCL 50 MG TABLET PO (09:15)
[2021-03-28] MEDS: MEMANTINE 10 MG TABLET PO ×2 (09:15→20:22)
--- NOTE | 2021-03-28 09:24 | PM.PNORT ---
Progress Note: A&P Assessment and Plan (1) S/P total knee arthroplasty: Qualifiers: Laterality: right Qualified Code(s): Z96.651 - Presence of right artificial knee joint Code(s): Z96.659 - Presence of unspecified artificial knee joint Status: Acute Assessment and Plan: POD #2: Right TKA Continue PT/OT. WBAT. Walker. HIGH FALL RISK. DVT prophylaxis with Aspirin. SCDs. Incentive Spirometry. Ice knee. Monitor dressing. Change prior to discharge. Continue pain control. Dispo: Home with Home Health pending progress with PT/OT and medical clearance. (2) Hypotension: Qualifiers: Hypotension type: postprocedural hypotension Qualified Code(s): I95.81 - Postprocedural hypotension Code(s): I95.9 - Hypotension, unspecified Status: Acute Assessment and Plan: Hypotension today with PT upon standing. BP medications held. Appreciate medicine input. Subjective Subjective Date/Time Seen: 03/28/21 09:24 Post Op day: 2 Interval history: POD #2: Right TKA Slow progress with PT/OT due to hypotension with standing this AM. Incontinence also hindering PT but this is normal per patient. Knee pain controlled. No new concerns aside from BP. Review of Systems Review of Systems: All systems reviewed & are unremarkable except as noted in HPI and below Constitutional: Constitutional: Denies fever(s) and Denies headache(s) Comments: No c/o lightheadedness with standing and hypotension ENT: Denies headache(s) Cardiovascular: Cardiovascular: Denies chest pain, Denies diaphoresis, Denies palpitations and Denies dyspnea Respiratory: Respiratory: Denies dyspnea Gastrointestinal: Gastrointestinal: Denies abdominal pain, Denies constipation, Denies nausea and Denies vomiting Genitourinary: Genitourinary: Reports nocturia and Denies dysuria Musculoskeletal: Musculoskeletal: Reports arthralgias (Right Knee ) and Reports joint swelling (Right Knee ) Neurologic: Denies headache(s) Endocrine: Endocrine: Denies palpitations Exam Const: General: comfortable and no acute distress Resp: Effort & Inspection: normal respiratory effort Cardio: Rate: regular rate Rhythm: regular rhythm GI: GI Palp: Yes Soft to palpation, No Tenderness to palpation present (GI) and No Guarding due to palpation present (GI) Skin: Wounds: wounds noted Other: Incision c/d/i. No surrounding redness/warmth. No hematoma. Mild ecchymosis. No wound dehiscence Neuro: Cognition (Neuro): normal cognition Other: NV intact. Moves toes. Sensation intact to light touch. +ankle dorsiflexion/plantarflexion. Extrem: Right lower extremity: normal to inspection, full ROM (ROM limited due to recent surgical intervention ), knee Details: tenderness (diffuse, mild ) and swelling (diffuse, mild ), lower leg (Negative Samm's Sign, calf soft ), ankle (+ankle dorsiflexion/plantarflexion. ) and foot (2+ pedal pulses ) Details: normal capillary refill, vascular exam Details: dorsalis pedis pulse present and motor-sensory exam Details: two point discrimination normal and light-touch normal Left lower extremity: normal to inspection Psych: Mental Status: mental status grossly normal Thought content: Yes Normal thought content present Objective Data Vital Signs Vital Signs: Vital Signs - 24 hr 03/27/21 09:40 03/27/21 10:31 03/27/21 14:09 Temperature 36.8 C 36.3 C L Pulse Rate 74 75 Respiratory Rate 16 12 Blood Pressure 114/46 L 110/60 133/46 L Pulse Oximetry 97 88 L 03/27/21 14:10 03/27/21 18:55 03/27/21 19:46 Temperature 36.2 C L 35.8 C L Pulse Rate 69 73 Respiratory Rate 12 17 Blood Pressure 120/48 L 116/81 Pulse Oximetry 97 100 99 03/27/21 20:00 03/28/21 02:33 Temperature 35.8 C L Pulse Rate 73 48 L Respiratory Rate 17 18 Blood Pressure 110/40 L Pulse Oximetry 99 97 Intake/Output Intake/Output: Intake & Output 03/25/21 03/26/21 03/27/21 03/28/21 23:59 23:59 23:59 23:
--- NOTE | 2021-03-28 09:40 | P.PNIM_ITS ---
Progress Note: A&P Assessment and Plan (1) Anemia: Code(s): D64.9 - Anemia, unspecified Status: Acute Assessment and Plan: * Acute blood loss anemia * Low iron on labs * Anemia labs: Iron 70, TIBC 247, % saturation 7, transferrin 181, B12 997, folate 16.3, TSH 1.460 * Ferrous Sulfate 324mg PO BID * Colace ordered * Consider transfusion if H/H continues to drop (2) Hypotension: Qualifiers: Hypotension type: postprocedural hypotension Qualified Code(s): I95.81 - Postprocedural hypotension Code(s): I95.9 - Hypotension, unspecified Status: Acute Assessment and Plan: * Orthostatic BPs are present * Does have a factor of anemia * Hold propranolol * Trend BP * Adjust therapy as needed (3) Right knee DJD: Qualifiers: Osteoarthritis type: primary Qualified Code(s): M17.11 - Unilateral primary osteoarthritis, right knee Code(s): M17.11 - Unilateral primary osteoarthritis, right knee Status: Acute Assessment and Plan: * Postoperative day 2 status post right total hip arthroplasty * Post op management per Dr. Sexton * Wound care per ortho * pain control: Percocet 1 tab PO Q4hr PRN, Nydia 7.5mg pO Q4hr PRN, Tylenol 1000mg PO Q6hr PRN * Anti-emetic: Zofran 4mg IV Q4hr PRN * Bowel maintenance: Senna, miralax, and colace * Cefazolin x 3 bags * DVT prophylaxis per ortho aspirin 650mg PO daily (4) Hypertension: Code(s): I10 - Essential (primary) hypertension Status: Chronic Assessment and Plan: * Hypertension while laying in bed * Current BP is 86/46 * Blood pressures have been soft * asymptomatic * Continue to hold propanolol 60mg PO daily (5) Hyperlipidemia: Code(s): E78.5 - Hyperlipidemia, unspecified Status: Acute Assessment and Plan: * Continue statin * LFT ast/alt (6) Memory loss: Code(s): R41.3 - Other amnesia Status: Acute Assessment and Plan: * Initiate fall precautions * Patient aware of memory changes * Sometimes has a hard time thinking about certain words * Continue memantine (7) Depression with anxiety: Code(s): F41.8 - Other specified anxiety disorders Status: Acute Assessment and Plan: * No acute issues * Continue sertraline and doxepin (8) Orthostatic hypotension: Code(s): I95.1 - Orthostatic hypotension Status: Acute Assessment and Plan: * Layin/61, Sittin/78, Standin/70 * Propranolol continues to be on hold * Continue to monitor * Think there is a component of anemia * ECHO ordered and pending * Carotid doppler ordered and pending Time Spent With Patient Time with patient: Greater than 35 minutes Subjective Date/time seen: 03/28/21 09:40 Interval history: Date/Time: 03/26/21 19:00 Narrative: This is a very pleasant 80-year-old female with hypertension, hyperlipidemia, memory loss, and degenerative joint disease whom the hospitalist service has been consulted for postoperative medical management. She has had longstanding pain in her right knee that has been amenable to conservative outpatient treatment and thus she elected for replacement today. Her surgery wa s performed under general anesthesia with no immediate complications documented an estimated blood loss of 100 mL. At the time my evaluation her pain is pretty well controlled and she rates it a 3/10 and she d
--- NOTE | 2021-03-28 09:40 | PM.IMPN ---
Progress Note: A&P Assessment and Plan (1) Anemia: Code(s): D64.9 - Anemia, unspecified Status: Acute Assessment and Plan: Acute blood loss anemia Low iron on labs Anemia labs: Iron 70, TIBC 247, % saturation 7, transferrin 181, B12 997, folate 16.3, TSH 1.460 Ferrous Sulfate 324mg PO BID Colace ordered Consider transfusion if H/H continues to drop (2) Hypotension: Qualifiers: Hypotension type: postprocedural hypotension Qualified Code(s): I95.81 - Postprocedural hypotension Code(s): I95.9 - Hypotension, unspecified Status: Acute Assessment and Plan: Orthostatic BPs are present Does have a factor of anemia Hold propranolol Trend BP Adjust therapy as needed (3) Right knee DJD: Qualifiers: Osteoarthritis type: primary Qualified Code(s): M17.11 - Unilateral primary osteoarthritis, right knee Code(s): M17.11 - Unilateral primary osteoarthritis, right knee Status: Acute Assessment and Plan: Postoperative day 2 status post right total hip arthroplasty Post op management per Dr. Sexton Wound care per ortho pain control: Percocet 1 tab PO Q4hr PRN, Nydia 7.5mg pO Q4hr PRN, Tylenol 1000mg PO Q6hr PRN Anti-emetic: Zofran 4mg IV Q4hr PRN Bowel maintenance: Senna, miralax, and colace Cefazolin x 3 bags DVT prophylaxis per ortho aspirin 650mg PO daily (4) Hypertension: Code(s): I10 - Essential (primary) hypertension Status: Chronic Assessment and Plan: Hypertension while laying in bed Current BP is 86/46 Blood pressures have been soft asymptomatic Continue to hold propanolol 60mg PO daily (5) Hyperlipidemia: Code(s): E78.5 - Hyperlipidemia, unspecified Status: Acute Assessment and Plan: Continue statin LFT ast/alt (6) Memory loss: Code(s): R41.3 - Other amnesia Status: Acute Assessment and Plan: Initiate fall precautions Patient aware of memory changes Sometimes has a hard time thinking about certain words Continue memantine (7) Depression with anxiety: Code(s): F41.8 - Other specified anxiety disorders Status: Acute Assessment and Plan: No acute issues Continue sertraline and doxepin (8) Orthostatic hypotension: Code(s): I95.1 - Orthostatic hypotension Status: Acute Assessment and Plan: Layin/61, Sittin/78, Standin/70 Propranolol continues to be on hold Continue to monitor Think there is a component of anemia ECHO ordered and pending Carotid doppler ordered and pending Time Spent With Patient Time with patient: Greater than 35 minutes Subjective Date/time seen: 03/28/21 09:40 Interval history: Date/Time: 03/26/21 19:00 Narrative: This is a very pleasant 80-year-old female with hypertension, hyperlipidemia, memory loss, and degenerative joint disease whom the hospitalist service has been consulted for postoperative medical management. She has had longstanding pain in her right knee that has been amenable to conservative outpatient treatment and thus she elected for replacement today. Her surgery was performed under general anesthesia with no immediate complications documented an estimated blood loss of 100 mL. At the time my evaluation her pain is pretty well controlled and she rates it a 3/10 and she describes it as an aching discomfort. Her appetite has been good postoperatively and she ate nearly 100% of her dinner this evening. She denies fever, chills, sweats, chest pain, shortness of breath, nausea, and vomiting. She also denies paresthesias, skin color, and temperature changes distal to the surgical site. On discharge I believe she is going to a swing bed closer to her home in [place]. Date/Time seen: 03/27/21 0800 Patient is sitting up in chair today. Blood pressure is noted to be low. Patient did state that she has e
[2021-03-28 10:31] LABS: Immature Reticulocyte Fraction 6.4 % (3.0-15.9); Reticulocyte Hemoglobin Conten 34.4 pg (28.2-35.7); Reticulocyte Percent 1.92 % (0.7-4.3); Reticulocytes Absolute 0.05 B/L (32.2-175.7)
[2021-03-28 10:45] LABS: Lactate Dehydrogenase 480 U/L (313-618)
[2021-03-28 10:46] LABS: Bilirubin,Total 0.4 mg/dL (0.2-1.3); Iron 17 ug/dL (37-170)
[2021-03-28 10:52] LABS: Transferrin 181 mg/dL (206-381)
[2021-03-28 10:56] LABS: Percent Iron Saturation 7 % (20-50)
[2021-03-28 11:50] LABS: Folic Acid 16.3 ng/mL (2.76->20)
[2021-03-28] MEDS: oxyCODONE/ACETAMINOPHEN (*CRX) 5-325 MG TABLET 1 TABLET PO (14:10)
[2021-03-28] MEDS: FERROUS SULFATE 324 MG TABLET PO (17:01)
[2021-03-28] MEDS: DOCUSATE SODIUM 100 MG CAPSULE PO (20:21)
[2021-03-28] MEDS: DOXEPIN HCL 10 MG CAPSULE PO (20:21)
[2021-03-28] MEDS: DOXEPIN HCL 25 MG CAPSULE 100 MG PO (20:22)
[2021-03-28] MEDS: ATORVASTATIN 40 MG TABLET PO (20:22)
[2021-03-29] VITALS (9 sets, daily range): BP systolic 108–154; BP diastolic 52–73; PULSE 88–113; RESP 16–20; TEMP 36.1–37.1; O2SAT 92–100
[2021-03-29 05:58] LABS: Basophils Percent Auto 0.6 % (0.2-1.2); Eosinophils Absolute Auto 0.1 K/mm3 (0-0.3); Eosinophils Percent Auto 1.1 % (0-4.4); Hematocrit 22.3 % (37.0-47.0); Hemoglobin 7.4 g/dL (12.0-15.0); Immature Granulocyte Absolute 0.03 K/mm3 (0.00-0.031); Immature Granulocyte Percent A 0.5 % (0-0.5); Lymphocytes Absolute Auto 1.32 K/mm3 (0.9-3.2); Lymphocytes Percent Auto 20.9 % (18.3-44.2); Mean Corpuscular HGB Conc 33.2 g/dl (32-36); Mean Corpuscular Hemoglobin 31.6 pg (26-34); Mean Corpuscular Volume 95.3 fl (80-100); Mean Platelet Volume 10.8 fl (7.4-10.4); Monocytes Absolute Auto 0.9 K/mm3 (0.1-0.6); Monocytes Percent Auto 14.9 % (2.6-8.5); Neutrophils Absolute Auto 3.9 K/mm3 (1.3-6.7); Platelet Count Result 191 k/mm3 (150-375); Red Blood Count 2.34 M/mm3 (4.2-5.4); Red Cell Distribution Width 12.8 % (11.5-14.5); White Blood Count 6.3 K/mm3 (4.5-10.0)
[2021-03-29 06:13] LABS: Alanine Aminotransferase 9 U/L (4-35); Alkaline Phosphatase 69 U/L (38-126); Anion Gap 6 mmol/L (8-16); Aspartate Amino Transferase 30 U/L (14-36); Bilirubin,Total 0.4 mg/dL (0.2-1.3); Blood Urea Nitrogen 19 mg/dL (7-17); Carbon Dioxide 24 mmol/L (22-30); Chloride 102 mmol/L (98-107); Estimated CRCL calculation 41 ml/min; Estimated Glomerular Filt Rate > 60; Glucose 106 mg/dL (65-110); Magnesium 1.8 mg/dL (1.6-2.3); Potassium 3.8 mmol/L (3.4-5.0); Sodium 132 mmol/L (137-145)
--- NOTE | 2021-03-29 08:30 | P.PNIM_ITS ---
Progress Note: A&P Assessment and Plan (1) Anemia: Code(s): D64.9 - Anemia, unspecified Status: Acute Assessment and Plan: * Acute blood loss anemia * Low iron on labs * Anemia labs: Iron 70, TIBC 247, % saturation 7, transferrin 181, B12 997, folate 16.3, TSH 1.460 * Ferrous Sulfate 324mg PO BID * Colace ordered * Consider transfusion if H/H continues to drop * H&H this morning 7.4/22.3 * transfuse 1 unit of blood 03/29/2021 (2) Hypotension: Qualifiers: Hypotension type: postprocedural hypotension Qualified Code(s): I95.81 - Postprocedural hypotension Code(s): I95.9 - Hypotension, unspecified Status: Acute Assessment and Plan: * Orthostatic BPs are present * Does have a factor of anemia * Hold propranolol * Trend BP * Adjust therapy as needed * Carotid Doppler less than 50% stenosis * echo shows severe aortic valve calcification with an ejection fraction greater than 70% (3) Orthostatic hypotension: Code(s): I95.1 - Orthostatic hypotension Status: Acute Assessment and Plan: * Layin/61, Sittin/78, Standin/70 * Propranolol continues to be on hold * Continue to monitor * Think there is a component of anemia * See above (4) Right knee DJD: Qualifiers: Osteoarthritis type: primary Qualified Code(s): M17.11 - Unilateral primary osteoarthritis, right knee Code(s): M17.11 - Unilateral primary osteoarthritis, right knee Status: Acute Assessment and Plan: * Postoperative day 2 status post right total hip arthroplasty * Post op management per Dr. Sexton * Wound care per ortho * pain control: Percocet 1 tab PO Q4hr PRN, Nydia 7.5mg pO Q4hr PRN, Tylenol 1000mg PO Q6hr PRN * Anti-emetic: Zofran 4mg IV Q4hr PRN * Bowel maintenance: Senna, miralax, and colace * Cefazolin x 3 bags * DVT prophylaxis per ortho aspirin 650mg PO daily (5) Hypertension: Code(s): I10 - Essential (primary) hypertension Status: Chronic Assessment and Plan: * Hypertension while laying in bed * Current BP is 86/46 * Blood pressures have been soft * asymptomatic * Continue to hold propanolol 60mg PO daily (6) Hyperlipidemia: Code(s): E78.5 - Hyperlipidemia, unspecified Status: Acute Assessment and Plan: * Continue statin * LFT ast/alt (7) Memory loss: Code(s): R41.3 - Other amnesia Status: Acute Assessment and Plan: * Initiate fall precautions * Patient aware of memory changes * Sometimes has a hard time thinking about certain words * Continue memantine (8) Depression with anxiety: Code(s): F41.8 - Other specified anxiety disorders Status: Acute Assessment and Plan: * No acute issues * Continue sertraline and doxepin Time Spent With Patient Time with patient: Greater than 35 minutes Subjective Date/time seen: 03/29/21 0830 Interval history: Date/Time: 03/26/21 19:00 Narrative: This is a very pleasant 80-year-old female with hypertension, hyperlipidemia, memory loss, and degenerative joint disease whom the hospitalist service has been consulted for postoperative medical management. She has had longstanding pain in her right knee that has been amenable to conservative outpatient treatment and thus she elected for replacement today. Her surgery was performed under general anesthesia with
--- NOTE | 2021-03-29 08:30 | PM.IMPN ---
Progress Note: A&P Assessment and Plan (1) Anemia: Code(s): D64.9 - Anemia, unspecified Status: Acute Assessment and Plan: Acute blood loss anemia Low iron on labs Anemia labs: Iron 70, TIBC 247, % saturation 7, transferrin 181, B12 997, folate 16.3, TSH 1.460 Ferrous Sulfate 324mg PO BID Colace ordered Consider transfusion if H/H continues to drop H&H this morning 7.4/22.3 transfuse 1 unit of blood 03/29/2021 (2) Hypotension: Qualifiers: Hypotension type: postprocedural hypotension Qualified Code(s): I95.81 - Postprocedural hypotension Code(s): I95.9 - Hypotension, unspecified Status: Acute Assessment and Plan: Orthostatic BPs are present Does have a factor of anemia Hold propranolol Trend BP Adjust therapy as needed Carotid Doppler less than 50% stenosis echo shows severe aortic valve calcification with an ejection fraction greater than 70% (3) Orthostatic hypotension: Code(s): I95.1 - Orthostatic hypotension Status: Acute Assessment and Plan: Layin/61, Sittin/78, Standin/70 Propranolol continues to be on hold Continue to monitor Think there is a component of anemia See above (4) Right knee DJD: Qualifiers: Osteoarthritis type: primary Qualified Code(s): M17.11 - Unilateral primary osteoarthritis, right knee Code(s): M17.11 - Unilateral primary osteoarthritis, right knee Status: Acute Assessment and Plan: Postoperative day 2 status post right total hip arthroplasty Post op management per Dr. Sexton Wound care per ortho pain control: Percocet 1 tab PO Q4hr PRN, Nydia 7.5mg pO Q4hr PRN, Tylenol 1000mg PO Q6hr PRN Anti-emetic: Zofran 4mg IV Q4hr PRN Bowel maintenance: Senna, miralax, and colace Cefazolin x 3 bags DVT prophylaxis per ortho aspirin 650mg PO daily (5) Hypertension: Code(s): I10 - Essential (primary) hypertension Status: Chronic Assessment and Plan: Hypertension while laying in bed Current BP is 86/46 Blood pressures have been soft asymptomatic Continue to hold propanolol 60mg PO daily (6) Hyperlipidemia: Code(s): E78.5 - Hyperlipidemia, unspecified Status: Acute Assessment and Plan: Continue statin LFT ast/alt (7) Memory loss: Code(s): R41.3 - Other amnesia Status: Acute Assessment and Plan: Initiate fall precautions Patient aware of memory changes Sometimes has a hard time thinking about certain words Continue memantine (8) Depression with anxiety: Code(s): F41.8 - Other specified anxiety disorders Status: Acute Assessment and Plan: No acute issues Continue sertraline and doxepin Time Spent With Patient Time with patient: Greater than 35 minutes Subjective Date/time seen: 03/29/21 0830 Interval history: Date/Time: 03/26/21 19:00 Narrative: This is a very pleasant 80-year-old female with hypertension, hyperlipidemia, memory loss, and degenerative joint disease whom the hospitalist service has been consulted for postoperative medical management. She has had longstanding pain in her right knee that has been amenable to conservative outpatient treatment and thus she elected for replacement today. Her surgery was performed under general anesthesia with no immediate complications documented an estimated blood loss of 100 mL. At the time my evaluation her pain is pretty well controlled and she rates it a 3/10 and she describes it as an aching discomfort. Her appetite has been good postoperatively and she ate nearly 100% of her dinner this evening. She denies fever, chills, sweats, chest pain, shortness of breath, nausea, and vomiting. She also denies paresthesias, skin color, and temperature changes distal to the surgical site. On discharge I believe she is going to a swing bed closer to her home in [facility]
[2021-03-29] MEDS: FERROUS SULFATE 324 MG TABLET PO ×2 (09:11→16:28)
[2021-03-29] MEDS: CHOLECALCIFEROL 1,000 UNITS TABLET 1000 UNITS PO (09:11)
[2021-03-29] MEDS: OPTI-GEN TAB 1 TABLET PO (09:11)
[2021-03-29] MEDS: CELECOXIB 200 MG CAPSULE PO ×2 (09:11→16:28)
[2021-03-29] MEDS: ASPIRIN 325 MG ENTERIC TABLET 650 MG PO (09:11)
[2021-03-29] MEDS: SENNA/DOCUSATE SODIUM TABLET 2 TAB PO ×2 (09:12→21:26)
[2021-03-29] MEDS: MULTIVITAMINS THERAPEUTIC TAB (*BKC) 1 TABLET PO (09:12)
[2021-03-29] MEDS: polyethylene glycoL 3350 17 GM POWD.PACK PO (09:12)
[2021-03-29] MEDS: MEMANTINE 10 MG TABLET PO ×2 (09:12→21:28)
[2021-03-29] MEDS: FAMOTIDINE 20 MG TABLET PO ×2 (09:12→21:27)
[2021-03-29] MEDS: SERTRALINE HCL 50 MG TABLET PO (09:12)
--- NOTE | 2021-03-29 13:03 | PM.PNORT ---
Progress Note: A&P Additional Plan POD 2 NOW RECEIVING PRBCs FOR LOW HGB. SHE WILL STAY TONIGHT THEN WE WILL REASSESS IN THE MORNING WETHER SHE MAY BE DISCHARGED Subjective Subjective Date/Time Seen: 03/29/21 13:03POD 2 IMPROVING. HE HAD SOME MORE HYPOTENSION. SHE HAD SOME DIZZINESS. HGB HAS DROPPED. RECEIVING BLOOD Review of Systems Review of Systems: All systems reviewed & are unremarkable except as noted in HPI and below Exam Const: General: comfortable and no acute distress Resp: Effort & Inspection: normal respiratory effort Cardio: Rate: regular rate Rhythm: regular rhythm GI: GI Palp: Yes Soft to palpation, No Tenderness to palpation present (GI) and No Guarding due to palpation present (GI) Skin: Wounds: wounds noted Other: Incision c/d/i. No surrounding redness/warmth. No hematoma. Mild ecchymosis. No wound dehiscence Neuro: Cognition (Neuro): normal cognition Other: NV intact. Moves toes. Sensation intact to light touch. +ankle dorsiflexion/plantarflexion. Extrem: Right lower extremity: normal to inspection, full ROM (ROM limited due to recent surgical intervention ), knee Details: tenderness (diffuse, mild ) and swelling (diffuse, mild ), lower leg (Negative Samm's Sign, calf soft ), ankle (+ankle dorsiflexion/plantarflexion. ) and foot (2+ pedal pulses ) Details: normal capillary refill, vascular exam Details: dorsalis pedis pulse present and motor-sensory exam Details: two point discrimination normal and light-touch normal Left lower extremity: normal to inspection Psych: Mental Status: mental status grossly normal Thought content: Yes Normal thought content present Objective Data Vital Signs Vital Signs: Vital Signs - 24 hr 03/28/21 14:05 03/28/21 20:00 03/28/21 22:00 Temperature 36.2 C L 36.2 C L Pulse Rate 72 72 103 H Respiratory Rate 18 18 18 Blood Pressure 141/78 H 118/55 L Pulse Oximetry 94 94 96 03/29/21 02:00 03/29/21 06:00 03/29/21 11:20 Temperature 37.1 C 36.3 C L 36.2 C L Pulse Rate 113 H 101 H 90 Respiratory Rate 18 18 18 Blood Pressure 119/54 L 108/52 L 138/65 Pulse Oximetry 97 97 100 Intake/Output Intake/Output: Intake & Output 03/26/21 03/27/21 03/28/21 03/29/21 23:59 23:59 23:59 23:59 Intake Total 800 1540 1010 640 Output Total 900 300 Balance 800 1540 110 340 Meds/Results Medications: Active Medications Generic Name Dose Route Start Last Admin Trade Name Freq PRN Reason Stop Dose Admin Acetaminophen 1,000 mg 03/26/21 16:24 03/27/21 14:41 Acetaminophen 500 Mg Tablet PO 1,000 mg Q6H PRN Administration Pain Rated 1-3 Aspirin 650 mg 03/27/21 09:00 03/29/21 09:11 Aspirin 325 Mg Enteric Tablet PO 650 mg DAILY JOSEPH Administration Atorvastatin Calcium 40 mg 03/26/21 21:00 03/28/21 20:22 Atorvastatin 40 Mg Tablet PO 40 mg HS JOSEPH Administration Celecoxib 200 mg 03/26/21 17:00 03/29/21 09:11 Celecoxib 200 Mg Capsule PO 200 mg BIDWM JOSEPH Administration Diazepam 5 mg 03/26/21 16:24 Diazepam (*Crx) 5 Mg Tablet PO Q8H PRN Spasms Diphenhydramine HCl 25 mg 03/26/21 16:24 Diphenhydramine Hcl Inj 50 Mg/Ml Vial IV PUSH Q6H PRN Itching Docusate Sodium 100 mg 03/26/21 21:00 03/28/21 20:21 Docusate Sodium 100 Mg Capsule PO 04/25/21 20:59 100 mg HS JOSEPH Administration Doxepin HCl 10 mg 03/26/21 21:00 03/28/21 20:21 Doxepin Hcl 10 Mg Capsule PO 10 mg HS JOSEPH Administration Doxepin HCl 100 mg 03/26/21 21:00 03/28/21 20:22 Doxepin Hcl 25 Mg Capsule PO 04/25/21 20:59 100 mg HS JOSEPH Administration Famotidine 20 mg 03/26/21 21:00 03/29/21 09:12 Famotidine 20 Mg Tablet PO 20 mg Q12HR JOSEPH Administration Ferrous Sulfate 324 mg 03/28/21 17:00 03/29/21 09:11 Ferrous Sulfate 324 Mg Tablet PO 324 mg BIDWM JOSEPH Administration Sodium Chloride 250 mls @ 30 mls/hr 03/29/21 08:58 Normal Saline Iv IV CONT 03/29/21 17:17 .Q8H20M STA
--- NOTE | 2021-03-29 13:23 | PCPTNOTE ---
Patient unable to be seen for PT at this time due to receiving blood transfusion. Will check back at later time.
--- NOTE | 2021-03-29 15:20 | PCOTNOTE ---
On 03/29/21, the student, [ Arleen HOLLIS], provided care and completed [facility] documentation on this patient. I have reviewed the student's documentation and agree with the findings.
[2021-03-29] MEDS: ATORVASTATIN 40 MG TABLET PO (21:26)
[2021-03-29] MEDS: DOCUSATE SODIUM 100 MG CAPSULE PO (21:26)
[2021-03-29] MEDS: DOXEPIN HCL 10 MG CAPSULE PO (21:27)
[2021-03-29] MEDS: DOXEPIN HCL 25 MG CAPSULE 100 MG PO (21:27)
[2021-03-30 02:00] VITALS: BP 107/49; PULSE 100; RESP 20; TEMP 36.9; O2SAT 98
[2021-03-30 06:00] VITALS: BP 127/59; PULSE 107; RESP 18; TEMP 36.9; O2SAT 96
[2021-03-30] MEDS: BISACODYL 10 MG SUPPOSITORY RECTAL (06:34)
[2021-03-30 07:04] LABS: Basophils Percent Auto 0.7 % (0.2-1.2); Eosinophils Absolute Auto 0.2 K/mm3 (0-0.3); Eosinophils Percent Auto 3.9 % (0-4.4); Hematocrit 25.5 % (37.0-47.0); Hemoglobin 8.5 g/dL (12.0-15.0); Immature Granulocyte Absolute 0.01 K/mm3 (0.00-0.031); Immature Granulocyte Percent A 0.2 % (0-0.5); Lymphocytes Percent Auto 17.5 % (18.3-44.2); Mean Corpuscular HGB Conc 33.3 g/dl (32-36); Mean Corpuscular Hemoglobin 31.8 pg (26-34); Mean Corpuscular Volume 95.5 fl (80-100); Monocytes Absolute Auto 0.6 K/mm3 (0.1-0.6); Monocytes Percent Auto 11.2 % (2.6-8.5); Neutrophils Absolute Auto 3.8 K/mm3 (1.3-6.7); Neutrophils Percent Auto 66.5 % (45.5-73.1); Platelet Count Result 179 k/mm3 (150-375); Red Blood Count 2.67 M/mm3 (4.2-5.4); Red Cell Distribution Width 13.2 % (11.5-14.5); White Blood Count 5.7 K/mm3 (4.5-10.0)
[2021-03-30 07:11] LABS: Alanine Aminotransferase 12 U/L (4-35); Albumin Level 2.9 g/dL (3.5-5.1); Alkaline Phosphatase 70 U/L (38-126); Anion Gap 4 mmol/L (8-16); Aspartate Amino Transferase 35 U/L (14-36); Bilirubin,Total 0.8 mg/dL (0.2-1.3); Blood Urea Nitrogen 14 mg/dL (7-17); Carbon Dioxide 27 mmol/L (22-30); Chloride 102 mmol/L (98-107); Estimated CRCL calculation 46 ml/min; Estimated Glomerular Filt Rate > 60; Glucose 95 mg/dL (65-110); Magnesium 1.7 mg/dL (1.6-2.3); Potassium 3.9 mmol/L (3.4-5.0); Sodium 133 mmol/L (137-145)
[2021-03-30] MEDS: SERTRALINE HCL 50 MG TABLET PO (09:02)
[2021-03-30] MEDS: CHOLECALCIFEROL 1,000 UNITS TABLET 1000 UNITS PO (09:02)
[2021-03-30] MEDS: CELECOXIB 200 MG CAPSULE PO ×2 (09:02→16:29)
[2021-03-30] MEDS: FERROUS SULFATE 324 MG TABLET PO ×2 (09:02→16:29)
[2021-03-30] MEDS: ASPIRIN 325 MG ENTERIC TABLET 650 MG PO (09:02)
[2021-03-30] MEDS: SENNA/DOCUSATE SODIUM TABLET 2 TAB PO ×2 (09:02→20:20)
[2021-03-30] MEDS: OPTI-GEN TAB 1 TABLET PO (09:02)
[2021-03-30] MEDS: FAMOTIDINE 20 MG TABLET PO ×2 (09:02→20:23)
[2021-03-30] MEDS: MULTIVITAMINS THERAPEUTIC TAB (*BKC) 1 TABLET PO (09:03)
[2021-03-30] MEDS: MEMANTINE 10 MG TABLET PO ×2 (09:03→20:23)
[2021-03-30] MEDS: polyethylene glycoL 3350 17 GM POWD.PACK PO (09:06)
--- NOTE | 2021-03-30 09:30 | P.PNIM_ITS ---
Progress Note: A&P Assessment and Plan (1) Anemia: Code(s): D64.9 - Anemia, unspecified Status: Acute Assessment and Plan: * Acute blood loss anemia * Low iron on labs * Anemia labs: Iron 70, TIBC 247, % saturation 7, transferrin 181, B12 997, folate 16.3, TSH 1.460 * Ferrous Sulfate 324mg PO BID * Colace ordered * Consider transfusion if H/H continues to drop * H&H this morning 8.5/25.5 * transfuse 1 unit of blood 03/29/2021 (2) Hypotension: Qualifiers: Hypotension type: postprocedural hypotension Qualified Code(s): I95.81 - Postprocedural hypotension Code(s): I95.9 - Hypotension, unspecified Status: Acute Assessment and Plan: * Orthostatic BPs are present * Does have a factor of anemia * Hold propranolol * Trend BP * Adjust therapy as needed * Carotid Doppler less than 50% stenosis * echo shows severe aortic valve calcification with an ejection fraction greater than 70% (3) Orthostatic hypotension: Code(s): I95.1 - Orthostatic hypotension Status: Acute Assessment and Plan: * Layin/61, Sittin/78, Standin/70 * Propranolol continues to be on hold * Continue to monitor * Think there is a component of anemia * See above (4) Right knee DJD: Qualifiers: Osteoarthritis type: primary Qualified Code(s): M17.11 - Unilateral primary osteoarthritis, right knee Code(s): M17.11 - Unilateral primary osteoarthritis, right knee Status: Acute Assessment and Plan: * Postoperative day 2 status post right total hip arthroplasty * Post op management per Dr. Sexton * Wound care per ortho * pain control: Percocet 1 tab PO Q4hr PRN, Nydia 7.5mg pO Q4hr PRN, Tylenol 1000mg PO Q6hr PRN * Anti-emetic: Zofran 4mg IV Q4hr PRN * Bowel maintenance: Senna, miralax, and colace * Cefazolin x 3 bags * DVT prophylaxis per ortho aspirin 650mg PO daily (5) Hypertension: Code(s): I10 - Essential (primary) hypertension Status: Chronic Assessment and Plan: * Hypertension while laying in bed * Current BP is 127/59 * Blood pressures have been more stable since the propanolol has been held * asymptomatic * Continue to hold propanolol 60mg PO daily (6) Hyperlipidemia: Code(s): E78.5 - Hyperlipidemia, unspecified Status: Acute Assessment and Plan: * Continue statin * LFT ast/alt (7) Memory loss: Code(s): R41.3 - Other amnesia Status: Acute Assessment and Plan: * Initiate fall precautions * Patient aware of memory changes * Sometimes has a hard time thinking about certain words * Continue memantine (8) Depression with anxiety: Code(s): F41.8 - Other specified anxiety disorders Status: Acute Assessment and Plan: * No acute issues * Continue sertraline and doxepin (9) Constipation: Code(s): K59.00 - Constipation, unspecified Status: Acute Assessment and Plan: * Oral medications have been given with morning meds * Added suppository * Report BM today * KUB still pending Subjective Date/time seen: 03/30/21 0930 Interval history: Date/Time: 03/26/21 19:00 Narrative: This is a very pleasant 80-year-old female with hypertension, hyperlipidemia, memory loss, and degenerative joint disease whom the hospitalist service has been consu
--- NOTE | 2021-03-30 09:30 | PM.IMPN ---
Progress Note: A&P Assessment and Plan (1) Anemia: Code(s): D64.9 - Anemia, unspecified Status: Acute Assessment and Plan: Acute blood loss anemia Low iron on labs Anemia labs: Iron 70, TIBC 247, % saturation 7, transferrin 181, B12 997, folate 16.3, TSH 1.460 Ferrous Sulfate 324mg PO BID Colace ordered Consider transfusion if H/H continues to drop H&H this morning 8.5/25.5 transfuse 1 unit of blood 03/29/2021 (2) Hypotension: Qualifiers: Hypotension type: postprocedural hypotension Qualified Code(s): I95.81 - Postprocedural hypotension Code(s): I95.9 - Hypotension, unspecified Status: Acute Assessment and Plan: Orthostatic BPs are present Does have a factor of anemia Hold propranolol Trend BP Adjust therapy as needed Carotid Doppler less than 50% stenosis echo shows severe aortic valve calcification with an ejection fraction greater than 70% (3) Orthostatic hypotension: Code(s): I95.1 - Orthostatic hypotension Status: Acute Assessment and Plan: Layin/61, Sittin/78, Standin/70 Propranolol continues to be on hold Continue to monitor Think there is a component of anemia See above (4) Right knee DJD: Qualifiers: Osteoarthritis type: primary Qualified Code(s): M17.11 - Unilateral primary osteoarthritis, right knee Code(s): M17.11 - Unilateral primary osteoarthritis, right knee Status: Acute Assessment and Plan: Postoperative day 2 status post right total hip arthroplasty Post op management per Dr. Sexton Wound care per ortho pain control: Percocet 1 tab PO Q4hr PRN, Nydia 7.5mg pO Q4hr PRN, Tylenol 1000mg PO Q6hr PRN Anti-emetic: Zofran 4mg IV Q4hr PRN Bowel maintenance: Senna, miralax, and colace Cefazolin x 3 bags DVT prophylaxis per ortho aspirin 650mg PO daily (5) Hypertension: Code(s): I10 - Essential (primary) hypertension Status: Chronic Assessment and Plan: Hypertension while laying in bed Current BP is 127/59 Blood pressures have been more stable since the propanolol has been held asymptomatic Continue to hold propanolol 60mg PO daily (6) Hyperlipidemia: Code(s): E78.5 - Hyperlipidemia, unspecified Status: Acute Assessment and Plan: Continue statin LFT ast/alt (7) Memory loss: Code(s): R41.3 - Other amnesia Status: Acute Assessment and Plan: Initiate fall precautions Patient aware of memory changes Sometimes has a hard time thinking about certain words Continue memantine (8) Depression with anxiety: Code(s): F41.8 - Other specified anxiety disorders Status: Acute Assessment and Plan: No acute issues Continue sertraline and doxepin (9) Constipation: Code(s): K59.00 - Constipation, unspecified Status: Acute Assessment and Plan: Oral medications have been given with morning meds Added suppository Report BM today KUB still pending Subjective Date/time seen: 03/30/21 0930 Interval history: Date/Time: 03/26/21 19:00 Narrative: This is a very pleasant 80-year-old female with hypertension, hyperlipidemia, memory loss, and degenerative joint disease whom the hospitalist service has been consulted for postoperative medical management. She has had longstanding pain in her right knee that has been amenable to conservative outpatient treatment and thus she elected for replacement today. Her surgery was performed under general anesthesia with no immediate complications documented an estimated blood loss of 100 mL. At the time my evaluation her pain is pretty well controlled and she rates it a 3/10 and she describes it as an aching discomfort. Her appetite has been good postoperatively and she ate nearly 100% of her dinner this evening. She denies fever, chills, sweats, chest pain,
--- NOTE | 2021-03-30 13:23 | PM.PNORT ---
Progress Note: A&P Additional Plan POD 3 IMPROVING. WILL TRY FOR DC TMRW IF DOES OK WITH PT Subjective Subjective Date/Time Seen: 03/30/21 13:23 POD 3 IMPROVING. STILL HAVING DIFFICULTY WITH PT. SHE WILL RESUME THIS AFTERNOON. NO CALF PAIN Review of Systems Review of Systems: All systems reviewed & are unremarkable except as noted in HPI and below Exam Extrem: Other: VSS AFEBRILE DRESSING DRY NV INTACT CALF SOFT NON TENDER NEG HOMANS SIGN Objective Data Vital Signs Vital Signs: Vital Signs - 24 hr 03/29/21 13:35 03/29/21 14:00 03/29/21 14:43 Temperature 36.1 C L 36.6 C 36.1 C L Pulse Rate 100 88 100 Respiratory Rate 18 18 18 Blood Pressure 132/63 139/52 L 132/63 Pulse Oximetry 100 98 100 03/29/21 22:00 03/30/21 02:00 03/30/21 06:00 Temperature 36.6 C 36.9 C 36.9 C Pulse Rate 92 100 107 H Respiratory Rate 20 20 18 Blood Pressure 129/62 107/49 L 127/59 L Pulse Oximetry 98 98 96 Intake/Output Intake/Output: Intake & Output 03/27/21 03/28/21 03/29/21 03/30/21 23:59 23:59 23:59 23:59 Intake Total 1540 1010 1590 890 Output Total 900 300 900 Balance 7401 046 7268 -10 Meds/Results Medications: Active Medications Generic Name Dose Route Start Last Admin Trade Name Freq PRN Reason Stop Dose Admin Acetaminophen 1,000 mg 03/26/21 16:24 03/27/21 14:41 Acetaminophen 500 Mg Tablet PO 1,000 mg Q6H PRN Administration Pain Rated 1-3 Aspirin 650 mg 03/27/21 09:00 03/30/21 09:02 Aspirin 325 Mg Enteric Tablet PO 650 mg DAILY JOSEPH Administration Atorvastatin Calcium 40 mg 03/26/21 21:00 03/29/21 21:26 Atorvastatin 40 Mg Tablet PO 40 mg HS JOSEPH Administration Celecoxib 200 mg 03/26/21 17:00 03/30/21 09:02 Celecoxib 200 Mg Capsule PO 200 mg BIDWM JOSEPH Administration Diazepam 5 mg 03/26/21 16:24 Diazepam (*Crx) 5 Mg Tablet PO Q8H PRN Spasms Diphenhydramine HCl 25 mg 03/26/21 16:24 Diphenhydramine Hcl Inj 50 Mg/Ml Vial IV PUSH Q6H PRN Itching Docusate Sodium 100 mg 03/26/21 21:00 03/29/21 21:26 Docusate Sodium 100 Mg Capsule PO 04/25/21 20:59 100 mg HS JOSEPH Administration Doxepin HCl 10 mg 03/26/21 21:00 03/29/21 21:27 Doxepin Hcl 10 Mg Capsule PO 10 mg HS JOSEPH Administration Doxepin HCl 100 mg 03/26/21 21:00 03/29/21 21:27 Doxepin Hcl 25 Mg Capsule PO 04/25/21 20:59 100 mg HS JOSEPH Administration Famotidine 20 mg 03/26/21 21:00 03/30/21 09:02 Famotidine 20 Mg Tablet PO 20 mg Q12HR JOSEPH Administration Ferrous Sulfate 324 mg 03/28/21 17:00 03/30/21 09:02 Ferrous Sulfate 324 Mg Tablet PO 324 mg BIDWM JOSEPH Administration Memantine 10 mg 03/26/21 21:00 03/30/21 09:03 Memantine 10 Mg Tablet PO 10 mg Q12HR JOSEPH Administration Multivitamins Therapeutic 1 tablet 03/27/21 09:00 03/30/21 09:03 Multivitamins Therapeutic Tab (*Bkc) PO 1 tablet DAILY JOSEPH Administration Multivitamins/Minerals 1 tablet 03/27/21 09:00 03/30/21 09:02 Opti-Gen Tab PO 04/26/21 08:59 1 tablet QAM JOSEPH Administration Naloxone HCl 0.1 mg 03/26/21 16:24 Naloxone Hcl 0.4 Mg/Ml Vial IV PUSH Q2M PRN Opiate Reversal Ondansetron HCl 4 mg 03/26/21 16:24 Ondansetron Inj 4 Mg/2 Ml Vial IV PUSH Q4H PRN Nausea And Vomiting Oxycodone HCl 7.5 mg 03/26/21 16:24 Oxycodone Hcl (*Crx) 2.5 Mg Tab Ir PO Q4H PRN Pain Rated 7-10 Oxycodone/Acetaminophen 1 tablet 03/26/21 16:24 03/28/21 14:10 Oxycodone/Acetaminophen (*Crx) 5-325 Mg Tablet PO 1 tablet Q4H PRN Administration Pain Rated 4-6 Polyethylene Glycol 17 gm 03/27/21 09:00 03/30/21 09:06 Polyethylene Glycol 3350 17 Gm Powd.Pack PO 17 gm QAM JOSEPH Administration Propranolol HCl 60 mg 03/27/21 09:00 Propranolol Hcl 60 Mg Capsule Cr PO QAM JOSEPH Senna/Docusate Sodium 2 tab 03/26/21 21:00 03/30/21 09:02 Senna/Docusate Sodium Tablet PO 2 tab Q12HR JOSEPH
--- NOTE | 2021-03-30 13:33 | PCOTNOTE ---
On 03/30/21, the student, Arleen Araujo, provided care and completed [facility] documentation on this patient. I have reviewed the student's documentation and agree with the findings.
[2021-03-30 14:25] VITALS: BP 154/81; PULSE 72; RESP 20; TEMP 36.9; O2SAT 100
[2021-03-30] MEDS: ATORVASTATIN 40 MG TABLET PO (20:20)
[2021-03-30] MEDS: DOXEPIN HCL 25 MG CAPSULE 100 MG PO (20:21)
[2021-03-30] MEDS: DOXEPIN HCL 10 MG CAPSULE PO (20:21)
[2021-03-30] MEDS: DOCUSATE SODIUM 100 MG CAPSULE PO (20:22)
[2021-03-30 22:00] VITALS: BP 126/56; PULSE 102; RESP 21; TEMP 36.7; O2SAT 100
[2021-03-31 06:00] VITALS: BP 132/66; PULSE 118; RESP 18; TEMP 36.9; O2SAT 96
[2021-03-31] MEDS: CELECOXIB 200 MG CAPSULE PO (08:24)
[2021-03-31] MEDS: MEMANTINE 10 MG TABLET PO (08:24)
[2021-03-31] MEDS: CHOLECALCIFEROL 1,000 UNITS TABLET 1000 UNITS PO (08:25)
[2021-03-31] MEDS: SENNA/DOCUSATE SODIUM TABLET 2 TAB PO (08:25)
[2021-03-31] MEDS: FAMOTIDINE 20 MG TABLET PO (08:25)
[2021-03-31] MEDS: OPTI-GEN TAB 1 TABLET PO (08:25)
[2021-03-31] MEDS: SERTRALINE HCL 50 MG TABLET PO (08:25)
[2021-03-31] MEDS: MULTIVITAMINS THERAPEUTIC TAB (*BKC) 1 TABLET PO (08:25)
[2021-03-31] MEDS: FERROUS SULFATE 324 MG TABLET PO (08:25)
[2021-03-31] MEDS: oxyCODONE/ACETAMINOPHEN (*CRX) 5-325 MG TABLET 1 TABLET PO (08:30)
[2021-03-31] MEDS: polyethylene glycoL 3350 17 GM POWD.PACK PO (08:32)
--- NOTE | 2021-03-31 08:45 | P.PNIM_ITS ---
Progress Note: A&P Assessment and Plan (1) Anemia: Code(s): D64.9 - Anemia, unspecified Status: Acute Assessment and Plan: * Acute blood loss anemia * Low iron on labs * Anemia labs: Iron 70, TIBC 247, % saturation 7, transferrin 181, B12 997, folate 16.3, TSH 1.460 * Ferrous Sulfate 324mg PO BID * Colace ordered * Consider transfusion if H/H continues to drop * H&H this morning 8.5/25.5 * transfuse 1 unit of blood 03/29/2021 (2) Hypotension: Qualifiers: Hypotension type: postprocedural hypotension Qualified Code(s): I95.81 - Postprocedural hypotension Code(s): I95.9 - Hypotension, unspecified Status: Acute Assessment and Plan: * Orthostatic BPs are present * Does have a factor of anemia * Hold propranolol * Trend BP * Adjust therapy as needed * Carotid Doppler less than 50% stenosis * echo shows severe aortic valve calcification with an ejection fraction greater than 70% (3) Orthostatic hypotension: Code(s): I95.1 - Orthostatic hypotension Status: Acute Assessment and Plan: * Layin/61, Sittin/78, Standin/70 * Propranolol continues to be on hold * Continue to monitor * Think there is a component of anemia * See above (4) Right knee DJD: Qualifiers: Osteoarthritis type: primary Qualified Code(s): M17.11 - Unilateral primary osteoarthritis, right knee Code(s): M17.11 - Unilateral primary osteoarthritis, right knee Status: Acute Assessment and Plan: * Postoperative day 3 status post right total hip arthroplasty * Post op management per Dr. Sexton * Wound care per ortho * pain control: Percocet 1 tab PO Q4hr PRN, Nydia 7.5mg pO Q4hr PRN, Tylenol 1000mg PO Q6hr PRN * Anti-emetic: Zofran 4mg IV Q4hr PRN * Bowel maintenance: Senna, miralax, and colace * Cefazolin x 3 bags * DVT prophylaxis per ortho aspirin 650mg PO daily (5) Hypertension: Code(s): I10 - Essential (primary) hypertension Status: Chronic Assessment and Plan: * Hypertension while laying in bed * Current BP is 132/66 * Blood pressures have been more stable since the propanolol has been held * asymptomatic * Continue to hold propanolol 60mg PO daily (6) Hyperlipidemia: Code(s): E78.5 - Hyperlipidemia, unspecified Status: Acute Assessment and Plan: * Continue statin * LFT ast/alt 35/12 (7) Memory loss: Code(s): R41.3 - Other amnesia Status: Acute Assessment and Plan: * Initiate fall precautions * Patient aware of memory changes * Sometimes has a hard time thinking about certain words * Continue memantine (8) Depression with anxiety: Code(s): F41.8 - Other specified anxiety disorders Status: Acute Assessment and Plan: * No acute issues * Continue sertraline and doxepin (9) Constipation: Code(s): K59.00 - Constipation, unspecified Status: Acute Assessment and Plan: * Oral medications have been given with morning meds * Added suppository * Report BM today * KUB normal bowel gas pattern Subjective Date/time seen: 03/31/21 0845 Interval history: Date/Time: 03/26/21 19:00 Narrative: This is a very pleasant 80-year-old female with hypertension, hyperlipidemia, memory loss, and degenerative joint disease whom the hospitalist service has
--- NOTE | 2021-03-31 08:45 | PM.IMPN ---
Progress Note: A&P Assessment and Plan (1) Anemia: Code(s): D64.9 - Anemia, unspecified Status: Acute Assessment and Plan: Acute blood loss anemia Low iron on labs Anemia labs: Iron 70, TIBC 247, % saturation 7, transferrin 181, B12 997, folate 16.3, TSH 1.460 Ferrous Sulfate 324mg PO BID Colace ordered Consider transfusion if H/H continues to drop H&H this morning 8.5/25.5 transfuse 1 unit of blood 03/29/2021 (2) Hypotension: Qualifiers: Hypotension type: postprocedural hypotension Qualified Code(s): I95.81 - Postprocedural hypotension Code(s): I95.9 - Hypotension, unspecified Status: Acute Assessment and Plan: Orthostatic BPs are present Does have a factor of anemia Hold propranolol Trend BP Adjust therapy as needed Carotid Doppler less than 50% stenosis echo shows severe aortic valve calcification with an ejection fraction greater than 70% (3) Orthostatic hypotension: Code(s): I95.1 - Orthostatic hypotension Status: Acute Assessment and Plan: Layin/61, Sittin/78, Standin/70 Propranolol continues to be on hold Continue to monitor Think there is a component of anemia See above (4) Right knee DJD: Qualifiers: Osteoarthritis type: primary Qualified Code(s): M17.11 - Unilateral primary osteoarthritis, right knee Code(s): M17.11 - Unilateral primary osteoarthritis, right knee Status: Acute Assessment and Plan: Postoperative day 3 status post right total hip arthroplasty Post op management per Dr. Sexton Wound care per ortho pain control: Percocet 1 tab PO Q4hr PRN, Nydia 7.5mg pO Q4hr PRN, Tylenol 1000mg PO Q6hr PRN Anti-emetic: Zofran 4mg IV Q4hr PRN Bowel maintenance: Senna, miralax, and colace Cefazolin x 3 bags DVT prophylaxis per ortho aspirin 650mg PO daily (5) Hypertension: Code(s): I10 - Essential (primary) hypertension Status: Chronic Assessment and Plan: Hypertension while laying in bed Current BP is 132/66 Blood pressures have been more stable since the propanolol has been held asymptomatic Continue to hold propanolol 60mg PO daily (6) Hyperlipidemia: Code(s): E78.5 - Hyperlipidemia, unspecified Status: Acute Assessment and Plan: Continue statin LFT ast/alt 35/12 (7) Memory loss: Code(s): R41.3 - Other amnesia Status: Acute Assessment and Plan: Initiate fall precautions Patient aware of memory changes Sometimes has a hard time thinking about certain words Continue memantine (8) Depression with anxiety: Code(s): F41.8 - Other specified anxiety disorders Status: Acute Assessment and Plan: No acute issues Continue sertraline and doxepin (9) Constipation: Code(s): K59.00 - Constipation, unspecified Status: Acute Assessment and Plan: Oral medications have been given with morning meds Added suppository Report BM today KUB normal bowel gas pattern Subjective Date/time seen: 03/31/21 0845 Interval history: Date/Time: 03/26/21 19:00 Narrative: This is a very pleasant 80-year-old female with hypertension, hyperlipidemia, memory loss, and degenerative joint disease whom the hospitalist service has been consulted for postoperative medical management. She has had longstanding pain in her right knee that has been amenable to conservative outpatient treatment and thus she elected for replacement today. Her surgery was performed under general anesthesia with no immediate complications documented an estimated blood loss of 100 mL. At the time my evaluation her pain is pretty well controlled and she rates it a 3/10 and she describes it as an aching discomfort. Her appetite has been good postoperatively and she ate nearly 100% of her dinner this evening. She denies fever, chills, sweats, c
[2021-03-31] MEDS: ASPIRIN 325 MG ENTERIC TABLET 650 MG PO (10:10)
[2021-04-01 16:14] LABS: Soluble Transferrin Receptor 1.14 mg/L (0.76-1.76)
--- NOTE | 2021-04-11 13:00 | PM.DS ---
DS: Admitting Diagnosis Discharge Date 03/31/21 RIGHT KNEE DJD Admitting Diagnosis RIGHT KNEE DJD DS: Discharge Diagnosis Discharge Diagnosis (1) S/P total knee arthroplasty: Qualifiers: Laterality: right Qualified Code(s): Z96.651 - Presence of right artificial knee joint Code(s): Z96.659 - Presence of unspecified artificial knee joint Status: Acute DS: Summary Hospital Course Reason for hospitalization: R TKA Hospital Course: POD 3 WAS DOING WELL AFTER R TKA. SHE HAD GOOD PO INTAKE. SHE HAD SOME POSTOP DIZZINESS AND HAD TO PROLONG HER STAY. SHE HAD POSTOP ANEMIA AND REQUIRED PRBCs. SHE WAS ASYMPTOMATIC AFTER HER BLOOD TRANSFUSION. SHE OTHERWISE REMAINED STABLE . SHE PASSED PT WITH NO DIFFICULTY. HER PAIN WA WELL CONTROLLED. SHE WAS DISCHARGED TO HOME WITH A F/U OF 3 WEEKS. Status at Discharge Functional status at discharge: uses cane/walker Overall status at discharge: patient is progressing back to baseline Time Spent with Patient Time attestation: Total time spent providing and/or coordinating discharge services: 20 MIN Time spent: Less than 30 minutes Discharge Plan Discharge Attending physician on discharge: Gary Sexton Consulting providers: Jamin Rust ; Ebony Ortiz ; Lupillo Grady ; Nirmala Ogden ; Kyle Centeno V. ; Raven Lehman Discharging Clinician: Nirmala Ogden Anticipated Discharge Date/Time: 03/28/21 15:00 Patient Disposition: Home Health Service Activity: may shower, no driving and follow weight bearing status Diet: as tolerated Wound Care Instructions: follow printed instructions Discharge Instructions: Post Op Total Knee Replacement Instructions Dr. Gary Sexton [phone] ? Your dressing will be changed prior to your discharge. You will be sent home with one additional dressing to be changed in 5 days by the home health RN. Your aung will be removed on the 14th day after surgery and steri-strips will be placed. ? You may shower with your dressing but do not submerge in a bath tub. ? Do not drive or operate machinery until you are released by Dr. Sexton. ? Do not walk without a walker for any reason until you are released by Dr. Sexton. ? Continue to use your ice machine. Please use a towel or pillow case to protect your skin before applying your ice machine. ? Do NOT place a pillow under your knee. You may use a pillow from the calf down if needed. ? You may begin use of your CPM machine at home if you have been given one pre-operatively. DO NOT USE WHILE YOU ARE SLEEPING. ? Your follow up appointment is indicated in your discharge instructions. ? Your medications have been sent to your pharmacy. ? Please contact our office with any questions/concerns regarding your knee at [phone]. Per Care Coordination: Patient is arranged to have [facility] services [phone]. RN please fax completed discharge instructions to [phone] Stop taking your propanolol Take your blood pressure and report the readings to your primary Take position changes slowly, take a break between each position Patient Instructions: Antibiotic Form, Precautions after Total Joint Replacement Surgery (ED) Stand Alone Forms: General Discharge Information Follow-up/Referrals: Gary Sexton MD [Physician] - Keep Reg. Scheduled Appt. Discharge Medications: New aspirin 325 mg Tablet,Delayed Release (Dr/Ec) 650 mg PO DAILY 28 Days Qty: 56 RF: 0 sennosides-docusate sodium [Senokot-S] 8.6-50 mg Tablet 2 tab-cap PO Q12HR 14 Days Qty: 56 RF: 0 oxycodone-acetaminophen 5-325 mg Tablet 1 tablet PO Q4-6H PRN (Reason: Pain Rated 4-6) Qty: 56 RF: 0 Continued multivitamin Capsule 1 cap PO DAILY RF: 0 docusate sodium 50 mg PO HS RF: 0 doxepin 100 mg capsule 100 mg PO HS RF: 0 atorvastatin 40 mg tablet 40 mg PO HS RF: 0 sertraline 50 mg Tablet 50 mg PO QAM RF: 0 vitamin A
== END 2021-03-31 13:33 | disposition home health service (06) | DRG 470 ==
LOC: ANHSURGERY 17:05 → ANH2MED 17:05
PROVIDERS: Physician Assistant; Admitting Provider Orthopaedic Surgery; PCP Internal Medicine; Visit Provider Nurse Practitioner
PROC: 0SRC0J9 Replacement of Right Knee Joint with Synthetic Substitute, Cemented, Open Approach (ICD-10-PCS; CPT 27447; principal; 2021-03-26 11:00)
DX: M17.11 Unilateral primary osteoarthritis, right knee (principal); D62 Acute posthemorrhagic anemia; G89.18 Other acute postprocedural pain; I95.81 Postprocedural hypotension; I95.1 Orthostatic hypotension; E78.5 Hyperlipidemia, unspecified; I10 Essential (primary) hypertension; R41.3 Other amnesia; F41.8 Other specified anxiety disorders; K59.00 Constipation, unspecified; Z79.82 Long term (current) use of aspirin; Z79.899 Other long term (current) drug therapy
CPT/HCPCS: 36415; 36430; 73560; 74018; 80048; 80053; 80076; 82247; 82248; 82607; 82728; 82746; 82948; 83540; 83550; 83615; 83735; 84238; 84443; 84466; 85025; 85046; 86850; 86900; 86901; 86920; 93306; 93880; 97110; 97116; 97161; 97165; 97530; 97535; A9270; C1713; C1776; G0378; J0171; J0690; J1100; J1885; J2270; J2370; J2405; J2704; J2795; J3010; J7030; J7040; J7120; P9016

== ENCOUNTER → 2021-09-09 09:12 | Outpatient (REF) | payer MEDICARE, SELFPAY | LOC: ANHLAB 09:12 | PROVIDERS: PCP Internal Medicine; Visit Provider Nurse Practitioner | DX: C06.9 Malignant neoplasm of mouth, unspecified (principal) | CPT/HCPCS: 88305; 88331 ==

== ENCOUNTER → 2021-11-26 14:04 | Outpatient (REF) | payer MEDICARE, SELFPAY | LOC: ANHLAB 14:04 | PROVIDERS: PCP Internal Medicine; Visit Provider Nurse Practitioner | DX: C44.1192 Basal cell carcinoma of skin of left lower eyelid, including canthus (principal) | CPT/HCPCS: 88305 ==

== ENCOUNTER 2022-08-11 08:00 | Outpatient (NON) | payer MEDICARE, SELFPAY | END 2022-08-11 08:01 | disposition home or self-care (01) | PROVIDERS: PCP Physician Assistant Medical; Visit Provider Nurse Practitioner | DX: C44.1192 Basal cell carcinoma of skin of left lower eyelid, including canthus (principal) | CPT/HCPCS: 88305; 88331 ==

== ENCOUNTER 2024-02-13 21:36 | Emergency (ER) | payer MEDICARE, SELFPAY ==
--- NOTE | ~2024-02-13 | CT_ITS ---
CT head without contrast Indication: Head injury Technique: Serial scans were obtained through the brain without the administration of contrast. Dose reduction technique was used on this scan by utilizing automated exposure control and iterative recon struction technique. The dose-length product (DLP) was 681.00 mGy-cm. Findings: There is no evidence of intracranial hemorrhage, mass lesion, or acute infarct. The ventri cles and subarachnoid spaces are dilated, consistent with mild atrophy. Low attenuation regions are seen within the periventricular white matter bilaterally, likely representing changes from chronic mi crovascular ischemic disease. There is no evidence of edema, mass effect or midline shift. The visu alized paranasal sinuses and mastoid air cells are clear. Impression: No intracranial hemorrhage, mass, or acute infarct. Atrophy and chronic white matter changes, as above. Reviewed, dictated and finalized at location . Impression: No intracranial hemorrhage, mass, or acute infarct. Atrophy and chronic white matter changes, as above.
--- NOTE | ~2024-02-13 | XR_ITS ---
XR chest 1V Ordering provider: Santosh Casey MD History: 83 years Female with . FX HIP . Comparison: None. FINDINGS: MEDIASTINUM: The cardiac silhouette is not enlarged. Prosthesis is seen. LUNGS: No infiltrates, effusions or pneumothorax. OTHER: No free air under the diaphragm. Degenerative spine. IMPRESSION: No acute cardiopulmonary pathology. Reviewed, dictated and finalized at location A.
--- NOTE | ~2024-02-13 | XR_ITS ---
XR hip LT min 2V Ordering provider: Santosh Casey MD History: . fall. LT HIP PAIN . Comparison: None. FINDINGS: BONES: Fracture in the lesser trochanter is noted. HIP JOINT SPACES: Left hip arthroplasty. PUBIC SYMPHYSIS: Normal. SOFT TISSUES: Normal. IMPRESSION: Fracture in the lesser trochanter area. Left hip arthroplasty. Reviewed, dictated and finalized at location A.
[2024-02-13 21:38] VITALS: BP 136/67; PULSE 68; RESP 14; TEMP 36.4; O2SAT 100
--- NOTE | 2024-02-13 21:56 | PC.NURSE ---
Called [facility], spoke with Lyric to get information on patients surgery location. Lyric states patient arrived there with left femoral neck fx and left finger fx. She also states patient arrived to their facility from [facility], and discharged from attending Josse Savage MD. Patient was at [facility].
[2024-02-13] MEDS: ONDANSETRON INJ 4 MG/2 ML VIAL IV PUSH (22:13)
[2024-02-13] MEDS: MORPHINE SULFATE (*CRX) 2 MG/ML INJ IV PUSH ×2 (22:13→22:40)
--- NOTE | 2024-02-13 22:21 | ED.GENADULT ---
HPI - General Adult General Chief complaint: Extremity Injury, Lower Stated complaint: fall Time Seen by Provider: 02/13/24 22:10 History of Present Illness HPI narrative: Patient is an 83-year-old female who presents to the emergency department this evening from her rehab facility status post fall. Patient recently had a left hip replacement performed at [facility] through HS on January 27. Patient was at a rehab facility and got up when she was not supposed to and fell landing on her left hip. Patient has not been able to ambulate with assistance due to pain and she was brought to our facility for further evaluation. Patient is currently on Lovenox for DVT prevention at the rehab facility. Rehab facility did call after patient's arrival to inform us that she may have hit her head. Patient Related Data Home Medications Medication Instructions Recorded Confirmed multivitamin 1 cap PO DAILY 06/08/19 02/03/24 CBD hemp BYMOUTH 02/27/22 02/03/24 empty container 02/28/22 02/03/24 Allergies Allergy/AdvReac Type Severity Reaction Status Date / Time gabapentin Allergy Unknown UNKNOWN-PT Verified 10/19/23 12:46 UNABLE TO RECALL prochlorperazine Allergy Unknown Unknown-PT Verified 10/19/23 12:46 UNABLE TO RECALL tramadol Allergy Unknown UNKNOWN-PT Verified 10/19/23 12:46 UNABLE TO RECALL sacubitril [From Entresto] AdvReac Severe Confusion Verified 10/19/23 12:46 valsartan [From Entresto] AdvReac Severe Confusion Verified 10/19/23 12:46 Review of Systems Review of Systems: All systems are reviewed and are negative unless stated otherwise in the HPI. [facility] Past Medical History Medical History Balance problem CAD (coronary artery disease) Cardiomyopathy CHF (congestive heart failure) Dementia Depression with anxiety Hyperlipidemia Hypertension Hypothyroidism Memory loss Mitral regurgitation Risk for falls Stress incontinence Tricuspid regurgitation Varicose vein of leg Weight loss Surgical History Surgical History History of arthroplasty of right knee (03/26/21) History of bladder surgery 1990 and 1992 History of cardiac radiofrequency ablation (RFA) 2016, Dr. Jon Mota at [place], [place] [facility] . History of hysterectomy (1967) History of spinal surgery x2 History of tonsillectomy (1947) S/P TAVR (transcatheter aortic valve replacement) S/P total knee arthroplasty Family History Family History Other Heart disease Social History Social History Social History: Surrogate decision maker: Jennifer Seay, granddaughter. Code status: Full code. Smoking status: Never smoker Second hand tobacco smoke exposure: No Alcohol intake: never Substance use: never Substance use type: does not use Do You Feel Safe in your Home?: Yes Lack of Transportation: No Lack of Food: Never True Current Housing: I Have Housing Concerned About Future Housing: No Difficulty Paying Gas/Electric Bills: No Difficulty Paying for Meds: No Currently Unemployed: No Education: High School Diploma/GED Difficulty w/ Childcare or Family Care: No Living arrangements: alone Additional living arrangements comments: The patient lives in her own home in [place]. She has 4 children. Occupation/Education: retired Additional occupation/education comments: Retired. Gender identity (if verbalized by the patient): Female Exam Narrative: General: Alert, awake, afebrile, in no acute distress. HEENT: PERRL, no rhinorrhea, no post nasal drip, oropharynx clear. Cardiovascular: Regular rate and rhythm, no murmurs, rubs or gallops, no peripheral edema. Respiratory: Clear to auscultation bilaterally, n
[2024-02-13 22:42] VITALS: BP 129/66; PULSE 67; RESP 18; O2SAT 100
--- NOTE | 2024-02-13 23:06 | PC.NURSE ---
Report give to WENDY Perez who assumes care of patient at this time. All questions answered.
[2024-02-13 23:46] VITALS: PULSE 71; RESP 15; O2SAT 91
[2024-02-14] VITALS (15 sets, daily range): BP systolic 106–119; BP diastolic 55–72; PULSE 64–72; RESP 13–17; O2SAT 92–96
--- NOTE | 2024-02-14 01:52 | PC.NURSE ---
Lyric at [place] updated on pts plan of care. Daughter/ POA also updated on plan of care.
--- NOTE | 2024-02-14 03:24 | PC.NURSE ---
Report given to Yesenia at [facility] @[id number]
[2024-02-14] MEDS: MORPHINE SULFATE (*CRX) 2 MG/ML INJ IV PUSH (03:34)
== END 2024-02-14 03:40 | disposition short-term general hospital (02) ==
PROVIDERS: Emergency Provider Emergency Medicine
DX: S72.122A Displaced fracture of lesser trochanter of left femur, initial encounter for closed fracture (principal); M97.02XA Periprosthetic fracture around internal prosthetic left hip joint, initial encounter; F03.90 Unspecified dementia, unspecified severity, without behavioral disturbance, psychotic disturbance, mood disturbance, and anxiety; I25.10 Atherosclerotic heart disease of native coronary artery without angina pectoris; I42.9 Cardiomyopathy, unspecified; I11.0 Hypertensive heart disease with heart failure; I50.9 Heart failure, unspecified; I08.1 Rheumatic disorders of both mitral and tricuspid valves; E78.5 Hyperlipidemia, unspecified; E03.9 Hypothyroidism, unspecified; N39.3 Stress incontinence (female) (male); F41.8 Other specified anxiety disorders; Z79.01 Long term (current) use of anticoagulants; Z96.651 Presence of right artificial knee joint; Z90.710 Acquired absence of both cervix and uterus; W18.30XA Fall on same level, unspecified, initial encounter
CPT/HCPCS: 70450; 71045; 73502; 96374; 96375; 96376; 99285; J2270; J2405

== ENCOUNTER 2024-07-14 18:15 | Inpatient (IN) | payer MEDICARE, SELFPAY ==
--- NOTE | ~2024-07-14 | XR_ITS ---
XR chest 1V portable 07/15/2024 14:30 Indication: Cough Procedure: AP portable chest Comparison: 02/13/2024 Findings: Patchy bilateral airspace disease of the mid and lower lungs, compatible with pneumonia. Michele rderline heart size. There is a stent overlying the heart, likely aortic valve. No significant effusi on. No pneumothorax. Impression: 1: Patchy bilateral airspace disease, compatible with pneumonia. Reviewed, dictated and finalized at location B. Impression: 1: Patchy bilateral airspace disease, compatible with pneumonia.
--- NOTE | ~2024-07-14 | XR_ITS ---
EXAMINATION: XR fl Dobhoff insert/rad w img DATE: 07/19/2024 08:07 INDICATION: Pneumonia. Nutrition need. TECHNIQUE: I placed a nasoenteric tube under fluoroscopic guidance. The fluoroscopy exposure time was 2.7 minutes. The number of images was 1. COMPARISON: None. FINDINGS: The nasoenteric tube tip is in the stomach. IMPRESSION: 1. Fluoroscopy guided nasoenteric tube placement with tip in the stomach. Reviewed, dictated and finalized at location A.
--- NOTE | ~2024-07-14 | CT_ITS ---
CLINICAL INDICATION: Bilateral lower quadrant pain COMPARISON: None. Reference is made to an ultrasound examination of the bilateral kidneys performed 1 05/04/2020 demonstrated (incidentally) multiple hepatic cysts. TECHNIQUE: Multiple contiguous axial images of the abdomen and pelvis were performed without the admi nistration of intravenous contrast The dose-length product (DLP) was 329.29 mGy-cm. Automated exposure control and iterative reconstruction technique were employed. FINDINGS/OBSERVATIONS: Visualized lower thorax: Patchy bibasilar opacification with right basilar consolidation. Further characterization is limited secondary to respiratory motion artifact. The heart is enlarged, with a prosthetic aortic valve, without pericardial effusion. Small hiatal hernia is present. Liver: The liver demonstrates multiple well-circumscribed areas of fluid attenuation, consistent with patien t's known hepatic cysts. In addition, however, periportal edema is also noted. Gallbladder and biliary system: The gallbladder is only minimally distended, and otherwise unremarkable. Pancreas: Limited evaluation of the pancreas secondary to the lack of intravenous contrast. Spleen: The spleen demonstrates homogeneous attenuation and is not enlarged measuring 8 cm in longitudinal di mension. Kidneys: The bilateral kidneys are unremarkable, without hydronephrosis or renal calculi. Adrenal glands: Unremarkable. Gastrointestinal tract: Fecal stasis distends the rectum with mural thickening consistent with fecal impaction. Appendix: The appendix is not definitively visualized. However, no pericecal inflammatory change is identified suggest the presence of acute appendicitis. Vasculature: Densely calcified atherosclerotic disease. Lymph nodes: Limited evaluation without intravenous contrast. Pelvic structures: Limited evaluation secondary to streak metallic artifact from patient's left hip prosthesis. Body wall and musculoskeletal: Small fat-containing right inguinal hernia. Fixation hardware at the levels of, L5 and S1. IMPRESSION: Periportal edema with patchy infiltration of the bilateral lung bases. Fecal impaction. Small fat-containing right inguinal hernia. Reviewed, dictated and finalized at location A.
--- OUTSIDE RECORDS SUMMARY | 2024-07-14 18:50 | XMS_ITS | Referral Summary ---
Author Organization [facility] [place] [address] Address [address] [place] [address] Care Team Providers Care Hub Lead Name Role Phone Srinivasan Pringle MD Primary Care Provider [phone] Allergies Active Allergy Reactions Criticality Noted Date Comments Gabapentin Nausea And Vomiting Low 02/06/2011 Prochlorperazine Nausea And Vomiting, Nausea only Low 02/06/2011 Sacubitril-Valsartan Other (See comments) Low 12/16 confusion Tramadol Rash Medium 02/06/2011 Medications cholecalciferol (VITAMIN D-3) 1,000 unit capsule Take 1 tablet by mouth daily 6 Active doxepin (SINEquan) 100 mg capsule Take 100 mg by mouth daily 9 Active metoprolol XL (TOPROL-XL) 25 mg extended release tablet Take 0.5 tablets (12.5 mg total) by mouth daily 3 Active Ocuvite Adult 50 Plus 250 mg (90 mg-160 mg) capsule Take 1 capsule by mouth daily 4 Active acetaminophen (TYLENOL) 325 mg tablet Take 2 tablets (650 mg total) by mouth every 6 (six) hours as needed for pain 3 Active amiodarone (PACERONE) 200 mg tablet Take 1 tablet (200 mg total) by mouth daily 3 Active donepeziL (ARICEPT) 5 mg tablet Take 1 tablet (5 mg total) by mouth nightly 3 Active fluticasone furoate-vilanter oL (BREO ELLIPTA) 100-25 mcg/dose diskus inhaler Inhale 1 puff daily 3 Active levothyroxine (SYNTHROID) 25 mcg tablet Take 1 tablet (25 mcg total) by mouth blue line trimmer before breakfast 3 Active melatonin tablet Take 1 tablet (3 mg total) by mouth nightly [address] (PROTONIX) 20 mg EC tablet Take 1 tablet (20 mg total) by mouth with evening meal 3 Active polyethylene glycol (MIRALAX) 17 gram/dose bulk powder Take 17 g by mouth daily as needed 3 Active sertraline (ZOLOFT) 25 mg tablet Take 3 tablets (75 mg total) by mouth daily 4 Active cyclobenzaprine (FLEXERIL) 5 mg tablet Take 1 tablet (5 mg total) by mouth 3 (three) times a day as needed for muscle spasms 4 Active lidocaine (ASPERCREME) 4 % adhesive patch,medicated Place 1 patch on the skin daily 4 Active senna-docusate (PERICOLACE) 8.6-50 mgIndications:co nstipation Take 1 tablet by mouth 2 (two) times a day 4 Active aspirin 81 mg enteric coated tabletIndication s:prevention of thrombosis Take 1 tablet (81 mg total) by mouth 2 (two) times a day for 14 days . Take with food. 28 tablet 4 Active memantine (NAMENDA) 5 mg tablet Take 1 tablet (5 mg total) by mouth 2 (two) times a day 4 Active bethanechol (URECHOLINE) 5 mg tabletIndication s:Urinary Retention Take 1 tablet (5 mg total) by mouth 3 (three) times a day for 7 days 4 Active buPROPion (WELLBUTRIN) 100 mg tablet Take 1 tablet (100 mg total) by mouth 2 (two) times a day 4 Active oxyCODONE (ROXICODONE) 5 mg immediate release tabletIndication s:Pain Take 1 tablet (5 mg total) by mouth every 4 (four) hours as needed for pain 10 tablet 4 Active bisacodyL (DULCOLAX) 10 mg suppository 4 Active cefdinir (OMNICEF) 300 mg capsule 4 Active cranberry extract 200 mg capsule 4 Active diclofenac sodium (VOLTAREN) 1 % gel 4 Active docusate sodium (COLACE) 100 mg capsule 4 Active fluticasone propionate (FLONASE) 50 mcg/actuation nasal spray Active furosemide (LASIX) 20 mg tablet Active gabapentin (NEURONTIN) 100 mg capsule Active gatifloxacin 0.5 % drops Administer 1 drop into affected eye(s) 4 (four) times a day Active loperamide (IMODIUM) 2 mg capsule 4 Active midodrine (PROAMATINE) 5 mg tablet Active Triple Antibiotic ointment 4 Active ofloxacin (OCUFLOX) 0.3 % ophthalmic solution INSTILL 1 DROP INTO EACH EYE 4 TIMES DAILY FOR 7 DAYS Active Skin Prep Wipes misc 4 Active ROPivacaine (NAROPIN) 5 mg/mL (0.5 %) injection in office 4 Active Probiotic, S.boulardii, 250 mg capsule 4 Active tamsulosin (FLOMAX) 0.4 mg extended release capsule 4 Active traMADoL (ULTRAM) 50 mg tablet 0 4 Active triamcinolone (Kenalog) 10 mg/mL injection in office 4 Active Active Problems Problem Noted Date Diagnosed Date ABLA (acute blood loss anemia) 02/17/2024 Assessment & Plan (02/18/2024 9:34 AM CDT): - Hgb 10.4 on admission - 02/14: Hgb 9.8 - 02/15: Hgb 8.6 - 02/16: Hgb 6.7 -> 1 unit pRBC - post transfusion Hgb 8.3 - 02/17: Hgb 7.5, repeat Hgb 7.9 - Transfuse for Hgb <7.0 or symptomatic - CBC was monitored, no active signs or symptoms of bleeding, hemodynamically unsupported at discharge Acute urinary retention 02/17/2024 Assessment & Plan (02/18/2024 9:34 AM CDT): - 02/16: no void overnight after matson removal. Bladder scan 577 cc. In AM noted to have large incontinent episode. Bladder scan 561 cc, with post void cath residual 200 cc. Next void check at 1530. - 02/17: patient requiring straight cath overnight around midnight. At 0530 patient had an incontinent episode. Patient had bladder scan volume at 0730 of 533 cc. Incontinent episode shortly after with a PVR of 336 cc. Matson replaced, bethanechol started - Facility can void trial patient in 3 days and stop bethanechol once patient is voiding ACP (advance care planning) 02/15/2024 Assessment & Plan (02/15/2024 10:32 AM CDT): - 02/14: Per previous records patient is DNR. Also confirmed via [facility] records. Discussed codes status with MATHEUS Almanzar at bedside, patient is DNR; when discussed about a temporary breathing tube if the patient is unable to breathe on her own, the family was unsure, but agreeable to keeping her Yes intubate with call discuss in the event that patient would require respiratory support. Family agreeable to code status update in chart post-operatively Encounter for medication review 02/15/2024 Assessment & Plan (02/15/2024 10:41 AM CDT): Per records from [facility] faxed on 02/14: - Lovenox 40 mg once daily for 40 days starting 01/30/24 - amiodarone 200 mg once daily - donepezil 5 mg nightly - doxepin 100 mg nightly for insomnia - fluticasone furoate 100 mcg-vilanterol 25 mcg/dose 1 unit daily with dinner - levothyroxine 25 mcg tablet daily - melatonin 3 mg nightly - memantine 10 mg BID - Ocuvite adult 50 plus vitamin one capsule daily - pantoprazole 20 mg daily at dinner - Miralax 17 g daily as needed - sertraline 75 mg daily - spironolactone 12.5 mg daily - vitamin d3 1000 units daily - metoprolol succinate 12.5 mg daily - acetaminophen 650 mg q6h PRN - acetaminophen ER 650 mg TID - lidocaine 5% patch to left hip daily - buproprion 100 mg daily for 7 days starting on 02/11/24, then 100 mg BID starting on 02/19/24 Dyslipidemia 02/14/2024 Murmur 02/14/2024 SOB (shortness of breath) 02/14/2024 Fall, initial encounter 02/14/2024 Assessment & Plan (02/18/2024 9:28 AM CDT): - Unwitnessed fall from bed at [facility] - Orthostatic vital signs: pending 02/15, reordered 02/16 -- negative lying to sitting, unable to stand long enough for standing - TTE (02/16): Small LV cavity size with normal to hyperdynamic LV systolic function and EF 70-75 %. Thickened aortic valve leaflets; Mild Aortic Stenosis, Mild Tricuspid Regurgitation with normal estimated Pulmonary Artery Systolic Pressure. No LV masses seen; Strain quality is inadequate for accurate reporting - If orthostatic vital signs positive, consider carotid duplex-- Orthostatics negative. If further work up desired, PCP can order outpatient carotid duplex Closed left hip fracture, initial encounter 01/26 Assessment & Plan (02/18/2024 9:30 AM CDT): #L periprosthetic hip fx - Ortho Trauma consulted - 02/14 L ORIF proximal femur, revision VENDING TECHNICIAN [Berkes, Ortho Trauma] - WBAT LLE, posterior hip precautions - DVT prevention at discharge: aspirin 81 mg BID x 14 days - Sutures/aung to be removed 3 weeks post op on 03/08/24 - Bone health referral at discharge - Dry dressing changes daily and as needed - PT/OT, pain control - Follow up on 03/31/24 with Ortho Trauma Acute traumatic pain 02/14/2024 Assessment & Plan (02/15/2024 11:02 AM CDT): - Tylenol 650mg q6h - oxycodone 2.5mg q4h prn Discharge planning issues 02/14/2024 Assessment & Plan (02/18/2024 9:29 AM CDT): - Admitted 02/13 after unwitnessed fall from bed at SNF resulting in L periprosthetic hip fx - 02/14: pending OR - 02/15: PT/OT, monitor labs, syncope work up - 02/16: 1 unit pRBC, TTE, OSVS. Patient is medically stable for discharge, SW/CM updated. Discharge pending Hgb stability and syncope work up. - 02/17: Patient is medically stable for discharge, SW/CM updated. Discharge pending Hgb stability -- patient able to discharge Treatment plan note completed [x] CKD (chronic kidney disease) 02/14/2024 Assessment & Plan (02/18/2024 9:30 AM CDT): - Cr 1.28 on admission - Previous baseline Cr 0.91-1.78 - Renally dose medications, avoid nephrotoxins - 02/15: Cr 1.00 - 02/16: Cr 1.52, resuscitation with pRBC - 02/17: Cr downtrending to 1.21 - resolving Closed displaced intertrochanteric fracture of l eft femur 02/14/2024 Periprosthetic fracture of proximal end of femur 02/14/2024 Displaced fracture of left femoral neck 01/26/20 CECIL (acute kidney injury) 12/27/2023 Osteoarthritis of left knee 03/17/2023 UTI (urinary tract infection) due to Enterococcu s 12/15/2022 Physical deconditioning 08/27/2022 Acute respiratory failure with hypoxia 3 CHF (congestive heart failure) 08/21/2022 Altered mental state 05/26/2022 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 11/28/2021 Assessment & Plan (02/18/2024 9:27 AM CDT): - Continue home memantine and donepezil - 02/16: memantine dose reduced due to Cr Cl - Facility can recheck a BMP or Cr to see if memantine dose can be re-increased back to home dose of 10 mg BID 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 angina pectoris 10/13/2021 Ear canal mass, left 07/17/2021 Dizziness and giddiness 07/17/2021 Nonspecific abnormal results of function study o f kidney 02/28/2021 Nonrheumatic aortic valve stenosis 06/04/2020 Orthostatic hypotension 06/04/2020 Weight loss 06/04/2020 Tachycardia 07/19/2018 Atypical chest pain 04/02/2017 Migraine 04/02/2017 NICM (nonischemic cardiomyopathy) 04/02/2017 Precordial pain 04/02/2017 S/P TAVR (transcatheter aortic valve replacement ) 01/23/2016 PVC (premature ventricular contraction) 10/15/19 16 SHABANA (generalized anxiety disorder) 08/22/2014 Brain lesion 12/31/2012 Anxiety 03/16/2012 Insomnia 03/12/2012 Assessment & Plan (02/18/2024 9:28 AM CDT): - Home medications: doxepin, melatonin - Continue doxepin at night - Follow up with provider regarding doxepin as this is a high risk medication in the elderly population per BEERS criteria Lumbago 03/25/2011 Depressive disorder 02/06/2011 Assessment & Plan (02/15/2024 10:44 AM CDT): - Continue home zoloft - Continue buproprion 100 mg daily, with increase to 100 mg BID on 02/18 Hypertension 02/06/2011 Hyperlipidemia 02/06/2011 Spondylolisthesis of lumbosacral region 02/07/20 11 Overview (02/14/2024): S/p posterior lumbar spine fusion ( L5-S1) grade 1 anterolisthesis of L4 upon L5 Severe B/l neural foraminal stenosis Social History Tobacco Use Types Packs/Day Years Used Date Smoking Tobacco: Never Smokeless Tobacco: Never AUDIT-C Answer Date Recorded Q1: How often do you have a drink containing alcohol? Never 02/15/2024 Q2: How many drinks containi ng alcohol do you have on a typical day when you are drinking? Patient does not drink Q3: How often do you have si x or more drinks on one occasion? Never 02/15/2024 Personal Safety Answer Date Recorded Have you ever been in or are you currently in a harmful physical or emotional relationship or is someone making you feel afraid or unsafe? Denies 02/15/2024 Comments Unknown Sex and Gender Information Value Date Recorded Sex Assigned at Not on file Legal Sex Female 8:33 PM GEOSPATIAL SPECIALIST Gender Identity Not on file Sexual Orientation Not on file Last Filed Vital Signs Vital Sign Reading Time Taken Comments Blood Pressure 104/61 02/18/2024 10:56 AM CDT Pulse 89 02/18/2024 10:56 AM CDT Temperature 36.8 C (98.2 F) 02/18/2024 10:56 AM CDT Respiratory Rate 16 02/18/2024 10:56 AM CDT Oxygen Saturation 90% 02/18/2024 10:56 AM CDT Inhaled Oxygen Concentration - - Weight 87 kg (191 lb 12.8 oz) 02/17/2024 3:30 PM CDT Height 165.1 cm (5' 5 ) 02/15/2024 10:25 AM CDT Body Mass Index 31.92 02/15/2024 10:25 AM CDT Plan of Treatment Not on file Medical Devices Implanted Type Area Glaze Maker Device Identifier Shelf Expiration Date Model / Serial / Lot Synthes 1.7mm 750mm Crimp Cerclage Cable Orthopedic Stainless Steel [id number] - [id number] Implanted:Qty: 3 on 02/15/2024 by Tom Petersen MD at [facility] Left: Femur Synthes [id number] / / [employer] Cementralizer 10.5mm Cemented Hip Femur Centralizer Stem Pmma Latex Free [id number] - [id number] Implanted:Qty: 1 on 02/15/2024 by Tom Petersen MD at [facility] Left: Hip [employer] [id number] 09/24/2028 [id number] / / [id number] [employer] Navajo 127mm Cemented Hip 6 / Standard Offset Taper Stem [id number] - [id number] Implanted:Qty: 1 on 02/15/2024 by Tom Petersen MD at [facility] Left: Hip [employer] [id number] 10/24/2028 [id number] / / [id number] [employer] Simplex P Full Dose Radiopaque Preblend Cement Bone Tobramycin 6197-9-001 - [id number] Implanted:Qty: 2 on 02/15/2024 by Tom Petersen MD at [facility] Left: Hip [employer] 03/26/2025 6197-9-001 / / [id number] [employer] Self-Centering 46mm 28mm Hip Femur Head Bipolar Sterile Brown [id number] - [id number] Implanted:Qty: 1 on 02/15/2024 by Tom Petersen MD at [facility] Left: Hip [employer] [id number] 10/24/2028 [id number] / / [id number] [employer] Articul/Erasmo 28mm Hip +5mm 12/14 Taper Head Femoral Cocr Sterile Latex Free 1365-12-000 - [id number] Implanted:Qty: 1 on 02/15/2024 by Tom Petersen MD at [facility] Left: Hip [employer] [id number] 12/25/2028 1365-12-000 / / [id number] [employer]/Or tho Prep-Im Plug [place] Sponge Suction Hip Kit Thr Latex Free [id number] - [id number] Implanted:Qty: 1 on 02/15/2024 by Tom Petersen MD at [facility] Left: Hip [employer]/O rtho [id number] 06/18/2033 [id number] / / [id number] Insurance MEDICARE COMMERCIAL [facility] MEDICARE COMMERCIAL GENERIC MEDICARE COMMERCIAL GENERIC Advance Directives For more information, please contact: [phone] Documents on File Type Date Recorded Patient Associate Technician Expl anation ADVANCE DIRECTIVE 02/14/2024 4:16 PM RENE R OF BED BUG EXTERMINATOR-MEDICAL * LIMITED - No CPR (Latest Code Status on File) Date Activated Date Inactivated Comments 02/15/2024 6:18 PM 02/18/2024 8:02 PM * Full Code Date Activated Date Inactivated Comments 02/15/2024 4:43 PM 02/15/2024 6:18 PM * Full Code Date Activated Date Inactivated Comments 02/14/2024 1:15 PM 02/15/2024 4:43 PM Care Teams Hub Lead Relationship Specialty Start Date End Date Srinivasan Pringle MD [address] [place] [id number] PCP - General Internal Medicine 03/28/21
--- OUTSIDE RECORDS SUMMARY | 2024-07-14 18:50 | XMS_ITS | Encounter Summary ---
Author Organization [facility] Address [facility] [place] [address] Care Team Providers Care Neurosurgical Physician Assistant Name Role Phone Brigitte Bell MD, Zachary Unavailable [phone] Ally Fisher [facility]- Unavailable +[phone] Srinivasan Pringle MD Primary Care Provider [phone] Andrea Stubbs MD Unavailable [phone] Rancho Reid APRN Unavailable [phone] Emmanuel Pillai MD Unavailable [phone] Skylar Spicer Primary Care Provider [phone] Sonia Liang FILM MOUNTER Primary Care Provider [phone] Jennifer Hogan FILM MOUNTER Unavailable [phone] None, Provider Primary Care Provider Unavaila ble Sonia Liang FILM MOUNTER Primary Care Provider [phone] Bryanna Gutierrez-C Primary Care Provider + [phone] Encounter Details Date Type Department Care Team (Late st Contact Info) Description 10/03/2021 Pre-Procedure Call [place]'s Supervisor Dried Yeast Pre/Post [address] [place] [address] Andrea Stubbs MD [address] [facility], [facility] [address] [place] [address] Social History Tobacco Use Types Packs/Day Years Used Date Smoking Tobacco: Never Smokeless Tobacco: Never Alcohol Use Standard Drinks/Week Comments No 0 (1 standard drink = 0.6 oz pur e alcohol) Comments Unknown Sex and Gender Information Value Date Recorded Sex Assigned at Female 06/09/2024 12:42 PM ENGINE HOUSE HELPER Legal Sex Female 1:47 AM CDT Gender Identity Not on file Sexual Orientation Straight 08/21/2022 1: 09 PM CDT Occupation Industry Job Start Date Job End Date Not on file Not on file Not on file Not on file COVID-19 Exposure Response Date Recorded In the last 10 days, have yo u been in contact with someone who was confirmed or suspected to have Coronavirus/COVID-19? No / Unsure 09/30/2021 10:16 AM CDT documented as of this encounter Plan of Treatment Upcoming Encounters Date Type Department Care Team (Late st Contact Info) Description 06/20/2025 10:00 AM ENGINE HOUSE HELPER Appointment [facility] [address] [place] [address] Maksim Glaser MD Three [facility]. [facility] [address] [place] [address] 06/26/2025 11:00 AM ENGINE HOUSE HELPER [facility] [address] [place] [address] Faina Ospina FNP [address] [facility] [address] [place] [address] documented as of this encounter Visit Diagnoses Not on filedocumented in this encounter Additional Health Concerns Infection Onset Date Last Indicated Resolved Time COVID-19 Rule Out 10/10/2021 10/10/2021 10/11/2021 1:44 AM CDT COVID-19 Rule Out 04/09/2022 04/09/2022 04/09/2022 11:01 AM ENGINE HOUSE HELPER COVID-19 Confirmed 04/09/2022 04/09/2022 12:33 AM ENGINE HOUSE HELPER COVID-19 Rule Out 05/26/2022 05/26/2022 05/26/2022 10:00 AM ENGINE HOUSE HELPER COVID-19 Rule Out 05/28/2022 05/28/2022 05/28/2022 10:22 AM ENGINE HOUSE HELPER COVID-19 Rule Out 08/21/2022 08/21/2022 08/21/2022 9:29 AM CDT COVID-19 Rule Out 12/26/2023 12/26/2023 12/26/2023 10:25 PM CDT documented as of this encounter Care Teams Neurosurgical Physician Assistant Relationship Specialty Start Date End Date Srinivasan Pringle MD [address] [place] [phone] PCP - General INTERNAL MEDICINE 04/02/17 04/08/22 Skylar Spicer PA [address] [place] [address] PCP - General PHYSICIAN SOLAR FIELD SERVICE TECHNICIAN 04/09/22 06/09/22 Sonia Liang NP [address] [place] [address] PCP - General Assisted Living Facility 06/10/2211/06 None, MD Selina PCP - General UNKNOWN PHYSICIAN SPECIALTY 11/19/22 12/14/22 Sonia Liang NP [address] [place] [address] PCP - General Nurse Practitioner Family 12/15/2206/26 Bryanna Gutierrez PA-C [address] [place], [place] [address] [place] [address] PCP - General PHYSICIAN SOLAR FIELD SERVICE TECHNICIAN 06/27/24 Zachary Briggs MD [place] Casting Assistant CARDIOVASCULAR DISEASE 10/12/15 10/20/22 Ally Fisher, [facility]- [address] [phone] NURSE PRACTITIONER 04/02/17 Andrea Stubbs MD [address] [address] Consulting Physician INTERVENTIONAL CARDIOLOGY 09/13/21 Rancho Reid APRN [address] [address] Nurse Practitioner NURSE PRACTITIONER 10/23/21 Emmanuel Pillai MD [address] [place], [place] [address] Consulting Physician CLINICAL CARDIAC ELECTROPHYSIOLOGY 03/18/22 Jennifer Hogan NP [address] [place] [address] [phone] Nurse Practitioner Assisted Living Facility 06/10/22 documented as of this encounter
--- OUTSIDE RECORDS SUMMARY | 2024-07-14 18:50 | XMS_ITS | Encounter Summary ---
Author Organization [facility] Address [facility] [place] [address] Care Team Providers Care Glove Cuffer Name Role Phone Brigitte Bell MD, Zachary Unavailable [phone] Ally Fisher ANP- Unavailable [phone] Srinivasan Pringle MD Primary Care Provider [phone] Andrea Stubbs MD Unavailable [phone] Rancho Reid APRN Unavailable [phone] Emmanuel Pillai MD Unavailable [phone] Skylar Spicer Primary Care Provider [phone] Sonia Liang ANALYTIC PROGRAMMER Primary Care Provider [phone] Jennifer Hogan NP Unavailable [phone] None, Provider Primary Care Provider Unavaila ble Sonia Liang ANALYTIC PROGRAMMER Primary Care Provider [phone] Bryanna Gutierrez-C Primary Care Provider + [phone] Encounter Details Date Type Department Care Team (Late st Contact Info) Description 12/09/2021 Hospital Follow-up Call [facility] Cardiovascular Care Unit [address] [place] [address] Smitha Ramírez, RN Social History Tobacco Use Types Packs/Day Years Used Date Smoking Tobacco: Never Smokeless Tobacco: Never Alcohol Use Standard Drinks/Week Comments No 0 (1 standard drink = 0.6 oz pur e alcohol) Comments Unknown Sex and Gender Information Value Date Recorded Sex Assigned at Female 06/09/2024 12:42 PM BANBURY MACHINE OPERATOR Legal Sex Female 1:47 AM CDT Gender Identity Not on file Sexual Orientation Straight 08/21/2022 1: 09 PM CDT Occupation Industry Job Start Date Job End Date Not on file Not on file Not on file Not on file COVID-19 Exposure Response Date Recorded In the last 10 days, have galen vigil been in contact with someone who was confirmed or suspected to have Coronavirus/COVID-19? No / Unsure 11/28/2021 11:54 AM CDT documented as of this encounter Functional Status * RETIRED Are you deaf or do you have serious difficulty hearing Answer Date of Assessment Author Status No 11/28/2021 5:32 PM CDT Activ e * RETIRED Are you blind or do you have serious difficulty seeing, even when wearing glasses? Answer Date of Assessment Author Status No 11/28/2021 5:32 PM CDT Activ e * Do you have serious difficulty walking or climbing stairs? Answer Date of Assessment Author Status No 11/28/2021 5:32 PM CDT Carolyn Altamirano RN Active * Do you have difficulty dressing or bathing? Answer Date of Assessment Author Status No 11/28/2021 5:32 PM CDT Carolyn Altamirano RN Active * Because of a physical, mental, or emotional condition, do you have difficulty doing errands alone such as visiting a doctor's office or shopping? Answer Date of Assessment Author Status Yes 11/28/2021 5:32 PM CDT Carolyn Altamirano RN Active documented as of this encounter Mental Status * Because of a physical, mental, or emotional condition, do you have serious difficulty concentrating, remembering, or making decisions? Answer Entry Date Author Status Yes 11/28/2021 5:32 PM KAIT Carolyn Altamirano RN Active documented in this encounter Plan of Treatment Upcoming Encounters Date Type Department Care Team (Late st Contact Info) Description 06/20/2025 10:00 AM BANBURY MACHINE OPERATOR Appointment [facility] [address] [place] [address] Maksim Glaser MD [facility]. [address] [place] [address] 06/26/2025 11:00 AM BANBURY MACHINE OPERATOR Office Visit [facility] [address] [place] [phone] Faina Ospina FNP 3 [facility] [address] [place], [place] [phone] documented as of this encounter Goals Goal Patient Goal Type Associated Problems Recent Progress Patient-Stated? Author Family Patient and family will have open conversation regarding patient goals and wishes for treatment General On track(2021 1:08 PM CDT) No Matilde Piña RN Patient will return to prior living situation and remain independent in ADLs upon discharge from hospital Lifestyle No Frieda Montes RN documented as of this encounter Visit Diagnoses Not on filedocumented in this encounter Additional Health Concerns Infection Onset Date Last Indicated Resolved Time COVID-19 Rule Out 04/09/2022 04/09/2022 04/09/2022 11:01 AM BANBURY MACHINE OPERATOR COVID-19 Confirmed 04/09/2022 04/09/2022 12:33 AM BANBURY MACHINE OPERATOR COVID-19 Rule Out 05/26/2022 05/26/2022 05/26/2022 10:00 AM BANBURY MACHINE OPERATOR COVID-19 Rule Out 05/28/2022 05/28/2022 05/28/2022 10:22 AM BANBURY MACHINE OPERATOR COVID-19 Rule Out 08/21/2022 08/21/2022 08/21/2022 9:29 AM CDT COVID-19 Rule Out 12/26/2023 12/26/2023 12/26/2023 10:25 PM CDT documented as of this encounter Care Teams Glove Cuffer Relationship Specialty Start Date End Date Srinivasan Pringle MD [address] [facility] [address] [place] [address] PCP - General INTERNAL MEDICINE 04/02/17 04/08/22 Skylar Spicer PA [address] [place] [address] [id number] PCP - General PHYSICIAN APPLICATION SOFTWARE DEVELOPER 04/09/22 06/09/22 Sonia Liang NP [address] [place] [address] [phone] PCP - General Assisted Living Facility 06/10/2211/06 None, MD Selina PCP - General UNKNOWN PHYSICIAN SPECIALTY 11/19/22 12/14/22 Sonia Liang NP [address] [place] [address] PCP - General Nurse Practitioner Family 12/15/2206/26 Bryanna Gutierrez PA-C [address] [place], [place] [address] [place], [place] [phone] PCP - General PHYSICIAN APPLICATION SOFTWARE DEVELOPER 06/27/24 Zachary Briggs MD [place] [facility] [employer] CARDIOVASCULAR DISEASE 10/12/15 10/20/22 Ally Fisher, [facility]- [address] [place] [phone] NURSE PRACTITIONER 04/02/17 Andrea Stubbs MD [address] [place] [phone] Consulting Physician INTERVENTIONAL CARDIOLOGY 09/13/21 Rancho Reid APRN [address] [place] [address] [address] [place] [address] Nurse Practitioner NURSE PRACTITIONER 10/23/21 Emmanuel Pillai MD [address] [place] [address] Consulting Physician CLINICAL CARDIAC ELECTROPHYSIOLOGY 03/18/22 Jennifer Hogan NP [facility] [place], [place] [id number] Nurse Practitioner Assisted Living Facility 06/10/22 documented as of this encounter
--- OUTSIDE RECORDS SUMMARY | 2024-07-14 18:50 | XMS_ITS | Encounter Summary ---
Author Organization [facility] Address [facility] [place] [address] Care Team Providers Care Pit Crew Support Worker Name Role Phone Brigitte Bell MD, Zachary Unavailable [phone] Ally Fisher ANP- Unavailable [phone] Srinivasan Pringle MD Primary Care Provider [phone] Andrea Stubbs MD Unavailable [phone] Rancho Reid APRN Unavailable [phone] Emmanuel Pillai MD Unavailable [phone] Skylar Spicer Primary Care Provider [phone] Sonia Liang PLASTIC BOAT BUFFER Primary Care Provider [phone] Jennifer Hogan NP Unavailable [phone] None, Provider Primary Care Provider Unavaila ble Sonia Liang PLASTIC BOAT BUFFER Primary Care Provider [phone] Bryanna Gutierrez-C Primary Care Provider + [phone] Encounter Details Date Type Department Care Team (Late st Contact Info) Description 10/22/2021 Hospital Follow-up Call [facility] Cardiovascular Care Unit [address] [place] [address] Smitha Hernandez, RN Social History Tobacco Use Types Packs/Day Years Used Date Smoking Tobacco: Never Smokeless Tobacco: Never Alcohol Use Standard Drinks/Week Comments No 0 (1 standard drink = 0.6 oz pur e alcohol) Comments Unknown Sex and Gender Information Value Date Recorded Sex Assigned at Female 06/09/2024 12:42 PM BONSAI TENDER Legal Sex Female 1:47 AM CDT Gender [...] suspected to have Coronavirus/COVID-19? No / Unsure 10/23/2021 12:16 PM CDT documented as of this encounter Functional Status * RETIRED Are you deaf or do you have serious difficulty hearing Answer Date of Assessment Author Status No 10/10/2021 10:35 AM CDT Acti ve * RETIRED Are you blind or do you have serious difficulty seeing, even when wearing glasses? Answer Date of Assessment Author Status No 10/10/2021 10:35 AM CDT Acti ve * Do you have serious difficulty walking or climbing stairs? Answer Date of Assessment Author Status Yes 10/10/2021 10:35 AM CDT Andrew Gomez R N Active * Do you have difficulty dressing or bathing? Answer Date of Assessment Author Status No 10/10/2021 10:35 AM CDT Andrew Gomez R N Active * Because of a physical, mental, or emotional condition, do you have difficulty doing errands alone such as visiting a doctor's office or shopping? Answer Date of Assessment Author Status No 10/10/2021 10:35 AM CDT Andrew Gomez R N Active documented as of this encounter Mental Status * Because of a physical, mental, or emotional condition, do you have serious difficulty concentrating, remembering, or making decisions? Answer Entry Date Author Status No 10/10/2021 10:35 AM CDT Andrew Gomez R N Active documented in this encounter Plan of Treatment Upcoming Encounters Date Type Department Care Team (Late st Contact Info) Description 06/20/2025 10:00 AM BONSAI TENDER Appointment [facility] [address] [place] [address] Maksim Glaser MD Three [facility]. [address] [place] [address] 06/26/2025 11:00 AM BONSAI TENDER [facility] [address] [place] [address] Faina Ospina FNP 3 [facility] [address] [place] [address] documented as of this encounter Goals Goal Patient Goal Type Associated Problems Recent Progress Patient-Stated? Author Family Patient and family will have open conversation regarding patient goals and wishes for treatment General On track( 022 1:08 PM CDT) Matilde Sanchez, RN documented as of this encounter Visit Diagnoses Not on filedocumented in this encounter Additional Health Concerns Infection Onset Date Last Indicated Resolved Time COVID-19 Rule Out 04/09/2022 04/09/2022 04/09/2022 11:01 AM BONSAI TENDER COVID-19 Confirmed 04/09/2022 04/09/2022 12:33 AM BONSAI TENDER COVID-19 Rule Out 05/26/2022 05/26/2022 05/26/2022 10:00 AM BONSAI TENDER COVID-19 Rule Out 05/28/2022 05/28/2022 05/28/2022 10:22 AM BONSAI TENDER COVID-19 Rule Out 08/21/2022 08/21/2022 08/21/2022 9:29 AM CDT COVID-19 Rule Out 12/26/2023 12/26/2023 12/26/2023 10:25 PM CDT documented as of this encounter Care Teams Pit Crew Support Worker Relationship Specialty Start Date End Date Srinivasan Pringle MD [address] [facility] [address] [place] [address] PCP - General INTERNAL MEDICINE 04/02/17 04/08/22 Skylar Spicer PA [address] [place] [id number] PCP - General PHYSICIAN UNIT COORDINATOR 04/09/22 06/09/22 Sonia Liang NP [address] [place] [address] PCP - General Assisted Living Facility 06/10/2211/06 None, MD Selina PCP - General UNKNOWN PHYSICIAN SPECIALTY 11/19/22 12/14/22 Sonia Liang NP [address] [place] [id number] PCP - General Nurse Practitioner Family 12/15/2206/26 Bryanna Gutierrez, PA-C [address] [place] [address] PCP - General PHYSICIAN UNIT COORDINATOR 06/27/24 Zachary Briggs MD [place] Consulting Software Engineer CARDIOVASCULAR DISEASE 10/12/15 10/20/22 Ally Fisher, [facility]- [address] [place] [phone] NURSE PRACTITIONER 04/02/17 Andrea Stubbs MD [address] [place] [phone] Consulting Physician INTERVENTIONAL CARDIOLOGY 09/13/21 Rancho Reid APRN [address] [phone] Nurse Practitioner NURSE PRACTITIONER 10/23/21 Emmanuel Pillai MD [address] [place] [address] Consulting Physician CLINICAL CARDIAC ELECTROPHYSIOLOGY 03/18/22 Jennifer Hogan NP [address] [place] [phone] Nurse Practitioner Assisted Living Facility 06/10/22 documented as of this encounter
--- OUTSIDE RECORDS SUMMARY | 2024-07-14 18:51 | XMS_ITS | Continuity of Care Document ---
Author Organization [facility] Address [address] [facility] [address] [place] [address] Phone Care Team Providers Care Financial Aids Officer Name Role Phone Dmitri Villasenor MD Unavailable Unavailable Allergies, Adverse Reactions, Alerts Substance Reaction Status Criticality gabapentin Active No Information tramadol Active No Information Medications Medication Instructions Dosage Effective Dates (start - stop) Status Comments Medrol (Jim) 4 mg tablets in a dose pack Take As Directed - Active PRISTIQ (unknown strength) Not Available - Active ZOLPIDEM TARTRATE (unknown strength) Not Available - Active METOPROLOL SUCCINATE (unknown strength) Not Available - Active BENICAR (unknown strength) Not Available - Active ATORVASTATIN CALCIUM (unknown strength) Not Available - Active ASPIRIN (unknown strength) Not Available - Active Procedures Procedure Date OFFICE/OUTPATIENT VISIT EST OFFICE/OUTPATIENT VISIT EST OFFICE/OUTPATIENT VISIT NEW OFFICE/OUTPATIENT VISIT EST OFFICE/OUTPATIENT VISIT EST Advance Directives Directive Yes / No Effective Date File Name No Information Encounters Encounter Description Practice Location Reason(s) For Visit Diagnoses Date Provider Providers Copied on Encounter [facility], [address] [place] [address], [address], [place] tel:[phone] [facility] No Information 5 Hamilton Rizvi. [address] [place], [place], [id number]. tel:[phone] OFFICE/OUTPA TIENT VISIT EST [facility], [address], [address], [place] tel:[phone] [facility] Lumbago due to displacement of intervertebral disc Oct-2 0-201 5 Curylo Dmitri. [address] [place], [place], [id number]. tel:[phone] [facility], [address] [facility] [address], [place], [address], [place] tel:[phone] [facility] LumbagoPostlam inectomy lumbar syndromeSciati ca Sep-2 1-201 5 Curylo Dmitri. [address] [place], [place], [id number]. tel:[phone] OFFICE/OUTPA TIENT VISIT [facility] Surgery, [address] [place] [address], [address], [place] tel:[phone] [facility] Lt elbow (chief complaint) Lateral epicondylitis of elbow 5 Fenick Patterson. [address] [facility] [address] [place] [address], [id number]. tel:[phone] OFFICE/OUTPA TIENT VISIT [facility] Surgery, [address] [place] [address], [address], [place] tel:[phone] [facility] Lateral epicondylitis of elbow Sep-2 4 4 Eligio Jimenez. [address], [place], [place], [id number], [place]. tel:[phone] OFFICE/OUTPA TIENT VISIT [facility], [address] [place] [address], [address], [place] tel:[phone] [facility] f/u R shoulder (chief complaint) Bursitis/tendo nitis, shoulder 4 Jenniffer Hussein. [address] [place], [place], [id number]. tel:[phone] OFFICE/OUTPA TIENT VISIT [facility] Surgery, [address], [address], [place] tel:[phone] [facility] LumbagoDegener ation of lumbar or lumbosacral intervertebr 4-201 3 Hamilton Rizvi. [address] [place] [address], [id number]. tel:[phone] Family History Family Member Type Diagnosis Age At Onset No Information Payers Payer name Insurance type Covered alliance party ID Authoriza tion(s) Medicare E2 OT [id number] A[employer]na Life Medicare Supplement Plan [id number] Social History Type Description Quantity Date Captured Comments Alcohol Use Details Unknown Caffeine Use Details Unknown Tobacco Use Status No Information Smoking Status No Information Sex Female Chief Complaint And Reason For Visit No Information Reason For Referral Reason For Referral No Information Plan Of Treatment Date Type Action Status Referral Ordered: MRI SPI CANAL&CNTS C-/C+ LMBR spine, lumbar ordered Referral Ordered: RADEX SPI LUMBOSAC COMPL W/BENDING VIEWS ordered Referral Ordered: MRI SPI CANAL&CNTS THRC C-MATRL spine, lumbar ordered Referral Ordered: RADEX ELBW COMPL MINIMUM 3 VIEWS LT ordered Referral Ordered: RADEX SPI LUMBOSAC 2/3 VIEWS ordered History Of Present Illness Encounter Date Complaint History Of Prese nt Illness Lt elbow f/u R shoulder Functional Status Date Functional Assessmen t No Information Instructions Date Instruction Additional Infor mation Elevate extremity above heart. R elated to Lateral epicondylitis of elbow Immobilize as directed. Related to Lateral epicondylitis of elbow Apply ice as tolerated. Related to Lateral epicondylitis of elbow activity as tolerated Related to Bursitis/tendonitis, shoulder apply heating pad or ice as tolerated Related to Bursitis/tendonitis, shoulder Assessments Type Assessment Date No Information Patient Care Teams Name Effective Dates (start - stop) Status Members No Information
--- OUTSIDE RECORDS SUMMARY | 2024-07-14 18:51 | XMS_ITS | Clinical Summary ---
Author Organization [facility] [address] Address [address] [place] [address] Care Team Providers Care Physical Therapy Manager Name Role Phone Srinivasan Pringle MD Primary Care Provider [phone] Allergies Active Allergy Reactions Criticality Noted Date [...] 1 tablet (25 mcg total) by mouth storm door maker before breakfast 3 Active melatonin tablet Take [...] records patient is DNR. Also confirmed via [facility] records. 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 10/13/2021 Ear canal [...] upon L5 Severe B/l neural foraminal stenosis Surgical History Surgery Date Site/Laterality Comments REPLACEMENT TOTAL KNEE 04/27/2020 - 04/26/2021 Left BACK SURGERY Medical History Medical History Date Comments Anxiety Heart disease Aortic stenosis Cataract Family History Medical History Relation Name Comments Heart disease Father Heart disease Sister Relation Name Status Comments Father Sister Social History Tobacco Use Types Packs/Day Years [...] on file Legal Sex Female 8:33 PM CONSTRUCTION TECHNICIAN Gender Identity Not on file Sexual Orientation Not on file Obstetrics History Last Filed Vital Signs Vital Sign Reading [...] 02/15/2024 10:25 AM CDT Plan of Treatment Health Maintenance Due Date Last Done Comments Depression Screening 1940 DTaP/Tdap/Td Vaccine (1 - Tdap) 1949 Hepatitis B Screening 1958 Well Visit 65+ 2003 Pneumococcal vaccine 65+ (2 of 2 - PPSV23) 03/22/2009 01/25/2009, 01/25/2009 Covid-19 Vaccine (4 - 2023-2 5 season) 2023 02/21/2021, 06/30/2020, 06/02/2020 Fall Risk Assessment 02/17/2025 02/18/2024 Zoster Vaccine Completed 10/21/2018, 08/12/2018 Influenza Vaccine Completed 02/04/2024, , 02/13/2015, Additional history exists Medical Devices Implanted Type Area Payment Analyst Device Identifier Shelf Expiration Date Model / Serial / Lot Synthes 1.7mm 750mm Crimp Cerclage Cable Orthopedic Stainless Steel [id number] - [id number] Implanted:Qty: 3 on 02/15/2024 by Tom Petersen MD at [facility] Left: Femur Synthes [id number] / / [employer] Cementralizer 10.5mm Cemented Hip Femur Centralizer Stem Pmma Latex Free [id number] - [id number] Implanted:Qty: 1 on 02/15/2024 by Tom Petersen MD at [facility] Left: Hip [employer] [id number] 09/24/2028 [id number] / / [id number] [employer] Coryell 127mm Cemented Hip 6 04/09 Standard Offset Taper Stem [id number] - [id number] Implanted:Qty: 1 on 02/15/2024 by Tom Petersen MD at [facility] Left: Hip [employer] [id number] 10/24/2028 [id number] / / [id number] [employer] Simplex P Full Dose Radiopaque Preblend Cement Bone Tobramycin 6197-9-001 - [id number] Implanted:Qty: 2 on 02/15/2024 by Tom Petersen MD at [facility] Left: Hip [employer] 03/26/2025 6197-9-001 / / [id number] [employer] Self-Centering 46mm 28mm Hip Femur Head Bipolar Sterile Brown [id number] - [id number] Implanted:Qty: 1 on 02/15/2024 by Tom Petersen MD at [facility] Left: Hip [employer] [id number] 10/24/2028 [id number] / / [id number] [employer] Articul/Erasmo 28mm Hip +5mm 12/14 Taper Head Femoral Cocr Sterile Latex Free 1365-12-000 - [id number] Implanted:Qty: 1 on 02/15/2024 by Tom Petersen MD at [facility] Left: Hip [employer] [id number] 12/25/2028 1365-12-000 / / [id number] [employer]/Or tho Prep-Im Plug Riparius Sponge Suction Hip Kit Thr Latex Free [id number] - [id number] Implanted:Qty: 1 on 02/15/2024 by Tom Petersen MD at [facility] Left: Hip [employer]/O rtho [id number] 06/18/2033 [id number] / / [id number] Insurance MEDICARE COMMERCIAL GENERIC MEDICARE COMMERCIAL GENERIC MEDICARE COMMERCIAL GENERIC Advance Directives For more information, please contact: [phone] Documents on File Type Date Recorded Patient [employer] Expl anation ADVANCE DIRECTIVE 02/14/2024 4:16 PM [facility] FINISHER-MEDICAL * LIMITED - No CPR (Latest Code Status on File) Date Activated Date Inactivated Comments 02/15/2024 6:18 PM 02/18/2024 8:02 PM * Full Code Date Activated Date Inactivated Comments 02/15/2024 4:43 PM 02/15/2024 6:18 PM * Full Code Date Activated Date Inactivated Comments 02/14/2024 1:15 PM 02/15/2024 4:43 PM Care Teams Physical Therapy Manager Relationship Specialty Start Date End Date Srinivasan Pringle MD [address] [place] [id number] PCP - General Internal Medicine 03/28/21
--- OUTSIDE RECORDS SUMMARY | 2024-07-14 18:51 | XMS_ITS | Clinical Summary ---
Author Organization [facility] Address [facility] [place] [address] Care Team Providers Care Planishing Hammer Operator Name Role Phone PhillipAlly Lorenza ANP-BC Unavailable [phone] Andrea Stubbs MD Unavailable [phone] Rancho Reid APRN Unavailable [phone] Emmanuel Pillai MD Unavailable [phone] Jennifer Hogan NP Unavailable [phone] Bryanna Gutierrez PA-C Primary Care Provider [phone] Allergies Active Allergy Reactions Criticality Noted Date Comments Sacubitril-Valsartan Other (see comment) 2021 confusion Gabapentin Nausea and Vomiting 10/15/2015 Prochlorperazine Nausea Only 10/15/2015 Tramadol Rash Low 10/15/2015 Medications * This document contains information received from the source organization and may not represent a complete record from that organization. polyethylene glycol (MIRALAX) 17 GM/SCOOP powderIndications: Slow transit constipation Take 17 g by mouth daily as needed. Dissolve powder in 240 mL water 255 g 06/11/19 23 Active fluticasone furoate-vilanterol (BREO ELLIPTA) 100-25 MCG/ACT inhalerIndications :SOB (shortness of breath) Inhale 1 puff into the lungs daily with supper. 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 30 tablet 3 07/05/19 23 Active amiodarone (PACERONE) 200 MG tabletIndications: NSVT (nonsustained ventricular tachycardia) (CMS/HCC HHS/HCC) TAKE (1) TABLET BY MOUTH DAILY. 30 tablet 2 09/03/19 Active OCUVITE ADULT 50+ CapIndications:Maribeth jazlyn hypertension TAKE (1) CAPSULE BY MOUTH DAILY. 30 capsule 2 09/03/19 Active pantoprazole EC (PROTONIX) 20 MG tabletIndications: Weight loss TAKE (1) TABLET BY MOUTH ONCE DAILY WITH SUPPER 30 tablet 2 09/03/19 Active Cholecalciferol (VITAMIN D-3) 25 MCG (1000 UT) Cap Take 1 capsule by mouth daily. Active acetaminophen (TYLENOL) 325 MG tablet Take 2 tablets (650 mg total) by mouth every 6 (six) hours as needed. 03/23/20 24 Active bisacodyl (DULCOLAX) [address] 1 suppository (10 mg total) rectally daily as needed. 03/23/20 24 Active buPROPion (WELLBUTRIN) 100 MG tablet Take 1 tablet (100 mg total) by mouth 2 (two) times daily. 02/19/20 24 Active diclofenac sodium (VOLTAREN) 1 % gel Apply 2 g topically 3 (three) times daily. 03/23/20 24 Active folic acid (FOLVITE) 1 MG tablet Take 1 tablet (1 mg total) by mouth daily. 06/11/19 25 Active levothyroxine (SYNTHROID) 75 MCG tablet Take 1 tablet (75 mcg total) by mouth every morning. 06/11/19 25 Active midodrine (PROAMATINE) 2.5 MG tablet Take 1 tablet (2.5 mg total) by mouth 2 (two) times daily. 06/11/19 25 Active ondansetron (ZOFRAN-ODT) 4 MG disintegrating tablet Take 1 tablet (4 mg total) by mouth every 8 (eight) hours as needed. 04/26/20 24 Active POTASSIUM CHLORIDE 10 % Solution Take 7.5 mLs (10 mEq total) by mouth daily. 06/01/19 25 Active Saccharomyces boulardii (PROBIOTIC) 250 MG Cap daily. 06/11/19 25 Active senna-docusate (SENOKOT-S) 8.6-50 MG tablet Take 1 tablet by mouth 2 (two) times daily. 02/18/20 24 Active sertraline (ZOLOFT) 100 MG tablet Take 1 tablet (100 mg total) by mouth daily. 06/11/19 25 Active donepezil (ARICEPT) 5 MG TabIndications:Mil d late onset Alzheimer's dementia with anxiety (CMS/HCC) TAKE (1) TABLET BY MOUTH AT BEDTIME. 30 tablet 3 07/05/19 23 025 Discontinu ed(Discont inued by another clinician) metoprolol succinate ER (TOPROL-XL) 25 MG 24 hr tabletIndications: Primary hypertension TAKE (1/2) TABLET BY MOUTH DAILY. 15 tablet 2 09/03/19 23 025 Discontinu ed(Melindain g Physician) sertraline (ZOLOFT) 50 MG tabletIndications: Depressive disorder TAKE 1 1/2 TABLETS BY MOUTH EVERY MORNING. 45 tablet 2 09/03/19 23 025 Discontinu ed(Dose adjustment ) memantine (NAMENDA) 10 MG tabletIndications: Dementia (CMS/HCC) TAKE (1) TABLET BY MOUTH TWICE DAILY. 60 tablet 2 09/03/19 23 025 Discontinu ed(Discont inued by another clinician) levothyroxine (SYNTHROID) 25 MCG tabletIndications: Hypothyroidism, unspecified type Take 1 tablet (25 mcg total) by mouth daily. 28 tablet 10 09/16/19 23 025 Discontinu ed(Dose adjustment ) gatifloxacin (ZYMAR) 0.5 % ophthalmic solution Place 1 drop into both eyes 4 (four) times daily. 025 Discontinu ed(Discont inued by another clinician) doxepin (SINEQUAN) 100 MG capsule Take 1 capsule (100 mg total) by mouth nightly at bedtime. 12/10/19 24 025 Discontinu ed(Discont inued by another clinician) spironolactone (ALDACTONE) 25 MG tablet Take 0.5 tablets (12.5 mg total) by mouth daily. 30 tablet 12/29/19 24 025 Discontinu ed(Discont inued by another clinician) Active Problems Problem Noted Date Diagnosed Date Displaced fracture of left femoral neck ([facility]) 01/26/2024 CECIL (acute kidney injury) 12/27/2023 UTI (urinary tract infection) due to Enterococcu s 12/15/2022 Physical deconditioning 08/27/2022 CHF (congestive heart failure) ([facility]) 08/21/2022 Acute respiratory failure with hypoxia ([facility]) 08/21/2022 Altered mental state 05/26/2022 Nonrheumatic tricuspid valve regurgitation 11/28 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[facility]) 11/28/2021 Nonrheumatic mitral valve regurgitation 11/29/19 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 11/28/2021 Chronic systolic (congestive ) heart failure ([facility]) 10/23/2021 NSVT (nonsustained ventricul ar tachycardia) ([facility]) 10/23/2021 Coronary artery disease invo lving [place] coronary artery of [place] heart without angina pectoris 10/13/2021 Dizziness and giddiness 07/17/2021 Ear canal mass, left 07/17/2021 Nonrheumatic aortic valve stenosis 06/04/2020 Orthostatic hypotension 06/04/2020 Weight loss 06/04/2020 Hypertension 02/28/2019 Tachycardia 07/19/2018 Precordial pain 04/02/2017 Chest pain 04/02/2017 Migraine 04/02/2017 NICM (nonischemic cardiomyopathy) ([facility]) 04/02/2017 S/P TAVR (transcatheter aortic valve replacement ) 01/23/2016 PVC (premature ventricular contraction) 10/15/19 16 Brain lesion 12/31/2012 Anxiety 03/16/2012 Depressive disorder 02/06/2011 Spondylolisthesis of lumbosacral region 02/07/20 11 Overview (09/05/2021): S/p posterior lumbar spine fusion ( L5-S1) grade 1 anterolisthesis of L4 upon L5 Severe B/l neural foraminal stenosis Dyslipidemia SOB (shortness of breath) Atypical chest pain Murmur Family history of coronary artery disease Resolved Problems Problem Noted Date Diagnosed Date Resolved Date Dementia 06/12/2022 06/15/2022 CHF (congestive heart failur e) ([facility]) 11/28/2021 06/15/2022 Mild CAD 10/23/2021 10/10/2022 ACS (acute coronary syndrome ) ([facility]) 10/10/2021 10/10/2022 Pre-op evaluation 12/03/2020 12/10/2020 Encounters Date Type Department Care Team Description 06/20/2024 1:30 PM MEDICAL RECORD TECHNICIAN [facility] [address] [place] [address] Maksim Glaser MD Coronary Artery Disease; CHF; Establish Care (Transfer from Dr. Stubbs) 06/20/2024 Travel 05/18/2024 8:04 AM MEDICAL RECORD TECHNICIAN - 05/18/2024 11:59 PM MEDICAL RECORD TECHNICIAN Hospital Encounter [facility] [address] [place] [address] Khadra Espinal PA Discharge Disposition: Home or Self Care (Routine Discharge) 05/18/2024 Travel 04/25/2024 [facility] [address] [place] [address] Andrea Stubbs MD Medication Question from Last 3 Months Immunizations Name Administration Dates Next Due Fluzone High Dose - >Age 65 (Prefilled Syringe) 02/05/2022 Influenza (Generic) 02/14/2021,01/25/2011 Influenza Adult (Generic) 02/13/2015,09/2013,02/23/2013,2011 MODERNA COVID-19 (12+) MRNA, LNP-S, PF, 100 MCG/ 0.5 ML DOSE 06/30/2020,06/02/2020 Pneumococcal (Generic) 01/25/2009 Shingrix 10/21/2018,08/12/2018 Family History Medical History Relation Comments Coronary artery disease Brother 1 Coronary artery disease Brother 2 Coronary artery disease Father Alcohol Abuse Mother Psychosis Mother Heart Attack Sister 2 Relation Status Comments Brother 1 CO Brother 2 CO Father CO Mother Sister 1 CO Sister 2 Social History Tobacco Use Types Packs/Day Years Used Date Smoking Tobacco: Never Smokeless Tobacco: Never Tobacco Cessation:Counseling Given: Not Answered Alcohol Use Standard Drinks/Week Comments No 0 (1 standard drink = 0.6 oz pur e alcohol) B1300 Health Literacy Answer Date Recor ded How often do you need to hav e someone help you when you read instructions, pamphlets, or other written material from your doctor or pharmacy? Never 01/27/2024 [facility] Utilities Answer Date Recorded In the past 12 months has e V-[employer], gas, oil, or water [employer] threatened to shut off services in your home? No 01/27/2024 Humiliation, Afraid, Rape, and Kick questionnair e Answer Date Recorded Within the last year, have y ou been afraid of your partner or ex-partner? No 01/27/2024 Within the last year, have y ou been humiliated or emotionally abused in other ways by your partner or ex-partner? No Within the last year, have y ou been kicked, hit, slapped, or otherwise physically hurt by your partner or ex-partner? No 01/27/2024 Within the last year, have y ou been raped or forced to have any kind of sexual activity by your partner or ex-partner? No 01/27/2024 Social Connection and Isolation Panel [NHANES] A nswer Date Recorded In a typical week, how many times do you talk on the phone with family, friends, or neighbors? Once a week 01/27/20 How often do you get togethe r with friends or relatives? Three times a week 01/27/2024 How often do you attend chur ch or gnosticism services? 1 to 4 times per year 01/27/2024 Do you belong to any clubs o r organizations such as gnosticist groups, unions, fraternal or athletic groups, or school groups? Yes 01/27/2024 How often do you attend meet ings of the clubs or organizations you belong to? 1 to 4 times per year 01/27/2024 Are you , , di vorced, , never , or living with a partner? 01/27/2024 AUDIT-C Answer Date Recorded Q1: How often do you have a drink containing alcohol? Never 01/27/2024 Q2: How many drinks containi ng alcohol do you have on a typical day when you are drinking? Patient does not drink Q3: How often do you have si x or more drinks on one occasion? Never 01/27/2024 Overall Financial Resource Strain (CARDIA) Answe r Date Recorded How hard is it for you to pa y for the very basics like food, housing, medical care, and heating? Not hard at all 01/27/2024 PHQ-2 Answer Date Recorded Patient Health Questionnaire-2 Score 0 08/21/2022 [facility] - Occupational Stress Questionnaire Answer Date Recorded Do you feel stress - tense, restless, nervous, or anxious, or unable to sleep at night because your mind is troubled all the time - these days? Not at all 01/27/2024 Exercise Vital Sign Answer Date Recorde d On average, how many days pe r week do you engage in moderate to strenuous exercise (like a brisk walk)? 7 days 08/21/2022 On average, how many minutes do you engage in exercise at this level? 10 min 08/21/2022 Hunger Vital Sign Answer Date Recorded Within the past 12 months, y ou worried that your food would run out before you got the money to buy more. Never true 01/28/20 24 Within the past 12 months, t he food you bought just didn't last and you didn't have money to get more. Never true 01/28/2024 PRAPARE - Transportation Answer Date Re corded In the past 12 months, has l ack of transportation kept you from medical appointments or from getting medications? No 06/2023 In the past 12 months, has l ack of transportation kept you from meetings, work, or from getting things needed for daily living? No 01/28/2024 Housing Stability Vital Sign Answer Kenneth e Recorded In the last 12 months, was t here a time when you were not able to pay the mortgage or rent on time? No 12/15/2022 In the last 12 months, how many places have you lived? 2 12/15/2022 In the last 12 months, was t here a time when you did not have a steady place to sleep or slept in a fpc (including now)? No 12/15/2022 Housing Stability Vital Sign Answer Kenneth e Recorded In the last 12 months, was t here a time when you were not able to pay the mortgage or rent on time? No 01/28/2024 In the past 12 months, how m any times have you moved where you were living? 1 01/28/2024 At any time in the past 12 m [facility], were you homeless or living in a fpc (including now)? No 01/28/2024 Comments No Sex and Gender Information Value Date Recorded Sex Assigned at Female 06/09/2024 12:42 PM MEDICAL RECORD TECHNICIAN Legal Sex Female 1:47 AM CDT Gender Identity Not on file Sexual Orientation Straight 08/21/2022 1: 09 PM CDT Occupation Industry Job Start Date Job End Date Not on file Not on file Not on file Not on file Last Filed Vital Signs Vital Sign Reading Time Taken Comments Blood Pressure 120/70 06/20/2024 12:42 PM MEDICAL RECORD TECHNICIAN Pulse 66 06/20/2024 12:42 PM MEDICAL RECORD TECHNICIAN Temperature 36.6 C (97.9 F) 01/30/2024 11:50 AM CDT Respiratory Rate 18 01/30/2024 11:50 AM CDT Oxygen Saturation 96% 06/20/2024 12:42 PM MEDICAL RECORD TECHNICIAN Inhaled Oxygen Concentration - - Weight 52.6 kg (116 lb) 06/20/2024 12:42 PM MEDICAL RECORD TECHNICIAN Height 165.1 cm (5' 5 ) 06/20/2024 12:42 PM MEDICAL RECORD TECHNICIAN Body Mass Index 19.3 06/20/2024 12:42 PM MEDICAL RECORD TECHNICIAN Plan of Treatment Upcoming Encounters Date Type Department Care Team (Late st Contact Info) Description 06/20/2025 10:00 AM MEDICAL RECORD TECHNICIAN Appointment [facility] [address] [place] [address] Maksim Glaser MD [facility]. [address] [address] 06/26/2025 11:00 AM MEDICAL RECORD TECHNICIAN Office [facility] [address] [place] [phone] Faina Ospina FNP [address] [facility] [address] [place] [address] Health Maintenance Due Date Last Done Comments ASCVD Statin 1940 Pneumococcal Vaccine: 65+ Years (1 of 2 - PCV) 1944 DTaP, Tdap and Td Vaccines (1 - Tdap) 1957 Annual Medicare Wellness Visit 2003 RSV Immunization or 60+ Years (1 - 1-dose 75+ series) 2013 COVID-19 Vaccine ( season) 2023 02/21/2021, 06/30/2020, 06/02/2020 Influenza Adult (#1) 2024 02/05/2022, 02/14/2021, 02/13/2015, Additional history exists PHQ-2 (Physician Natalia) 04/27/2024 08/21/2022 Zoster Vaccines Completed 10/21/2018, 08/12/2018 Meningococcal B Vaccine Aged Out No l onger eligible based on patient's age to complete this topic Meningococcal Vaccine Aged Out No lexa chyna eligible based on patient's age to complete this topic RSV Immunizations Under 20 Months Aged Out No longer eligible based on patient's age to complete this topic Goals Goal Patient Goal Type Associated Problems Recent Progress Patient-Stated? Author Family Patient and family will have open conversation regarding patient goals and wishes for treatment General On track(2021 1:08 PM CDT) No Matilde Piña RN Patient will return to prior living situation and remain independent in ADLs upon discharge from hospital Lifestyle No Frieda Montes RN Medical Devices Implanted Type Area Client Experience Specialist Device Identifier Shelf Expiration Date Model / Serial / Lot Head Bipolar 46mm 28mm Uhr [place] Hip Cocr Uhmwpe - [id number] Implanted:Qt y: 1 on 01/27/2024 by Dallas Barone MD at [facility] Hip Components Left: Hip [employer] DIV [employer] CJ [id number] 03/10/2028 [id number] 8 / / [id number] Stem Femoral 111mm Press Fit Accolade Ii V40 Purefix Titanium 127d 6 35mm High Offset Hip Sterile - [id number] Implanted:Qt y: 1 on 01/27/2024 by Dallas Barone MD at [facility] Hip Components Left: Hip [employer] CJ [id number] 05/23/2028 [id number] / / [id number] Femoral Head [place] V40 Cocr Lfit 28mm/0 - [id number] Implanted:Qt y: 1 on 01/27/2024 by Dallas Barone MD at [facility] Hip Components Left: Hip [employer] - DIV [employer] CJ [id number] 12/01/2028 6260-9-1 / [id number] Roger Tavr Valve- 022 Implanted:Qt y: 1 on 10/16/2021 by Andrea Stubbs MD Valve Implant Heart [employer] CJ 11/30/2022 [id number] / [id number] / Procedures Procedure Name Priority Date/Time Associated Diagnosis Comments US ABD LIMITED Routine 05/18/2024 9:08 AM MEDICAL RECORD TECHNICIAN Elevation of levels of liver transaminase levels from Last 3 Months Results * US ABD LIMITED (05/18/2024 9:08 AM MEDICAL RECORD TECHNICIAN) Anatomical Region Laterality Modality Abdomen Ultrasound 05/18/2024 7:21 PM MEDICAL RECORD TECHNICIAN Impressions 05/18/2024 7:24 PM MEDICAL RECORD TECHNICIAN IMPRESSION: Multiple renal and hepatic cysts are present. Sludge within the gallbladder. Referred By: KHADRA ESPINAL Interpreted By: Jayden Hunt MD, 05/18/2024 7:21 PM Narrative 05/18/2024 7:24 PM MEDICAL RECORD TECHNICIAN [facility] [address] [place] [address] Procedure(s): US ABD LIMITED Date of service: 05/18/2024 8:20 AM Provided clinical information: 84 years, Female, EVEVATION elevation of the levels of the liver transaminase levels. Procedure and materials: Grayscale and color Doppler images of the right upper quadrant are obtained. Comparison studies: CT examination August 21, 2022. Findings: Within the liver there are multiple anechoic structures that are present. These are compatible with cysts. These are better seen on the prior CT examination from August 21, 2022. Hepatic veins appear to be patent. Portal venous flow is hepatopedal. Largest hepatic cyst measures approximately 7.7 x 6 x 6.8 cm. This is stable as compared back to August 21, 2022. Within the gallbladder there is sludge that is present. Gallbladder wall is not thickened at 2 mm. Positive sonographic Ramey sign. No pericholecystic fluid. Common bile duct measures 4.5 mm. This is not distended. Right kidney measures 8.8 x 3 x 4.8 cm. No hydronephrosis of the right kidney. Small simple cyst in the interpolar right kidney measuring 0.8 cm. Additional simple cyst upper pole measuring 8.2 mm and additional anterior interpolar cyst measuring 1.2 cm maximally. A fourth cyst in the inferior pole measuring 1.1 cm. Visualized pancreas is unremarkable. Pancreatic duct is not dilated at 2.6 mm. Procedure Note Jayden Hunt MD - 05/18/2024 [facility] [address] [place] [address] Procedure(s): US ABD LIMITED Date of service: 05/18/2024 8:20 AM Provided clinical information: 84 years, Female, EVEVATION elevation ofthe levels of the liver transaminase levels. Procedure and materials: Grayscale and color Doppler images of the rightupper quadrant are obtained. Comparison studies: CT examination August 21, 2022. Findings: Within the liver there are multiple anechoic structures that are present.These are compatible with cysts. These are better seen on the prior CTexamination from August 21, 2022. Hepatic veins appear to be patent. Portal venous flow is hepatopedal. Largest hepatic cyst measures approximately 7.7 x 6 x 6.8 cm. This isstable as compared back to August 21, 2022. Within the gallbladder there is sludge that is present. Gallbladder juma not thickened at 2 mm. Positive sonographic Ramey sign. Nopericholecystic fluid. Common bile duct measures 4.5 mm. This is not distended. Right kidney measures 8.8 x 3 x 4.8 cm. No hydronephrosis of the rightkidney. Small simple cyst in the interpolar right kidney measuring 0.8 cm.Additional simple cyst upper pole measuring 8.2 mm and additional anteriorinterpolar cyst measuring 1.2 cm maximally. A fourth cyst in the inferiorpole measuring 1.1 cm. Visualized pancreas is unremarkable. Pancreatic duct is not dilated at 2.6mm. IMPRESSION: Multiple renal and hepatic cysts are present. Sludge within the gallbladder. Referred By: KHADRA ESPINAL Interpreted By: Jayden Hunt MD, 05/18/2024 7:21 PM [facility] Final Result from Last 3 Months Insurance [employer] MEDICARE MEDICARE [employer] Advance Directives Documents on File Type Date Recorded Patient Supervisor Telephone Clerks Expl anation Advance Directives and Living Will 02/02/2024 12:04 PM Power of International Marketing Intern 06/10/2022 4:28 PM Advance Directives and Living Will 12/15/2022 POLST 2022 0201 * DNR (Latest Code Status on File) Date Activated Date Inactivated Comments 01/26/2024 9:06 PM 01/30/2024 2:31 PM * POLST Date Activated Date Inactivated Comments 12/27/2023 9:04 AM 12/29/2023 3:33 PM Question Answer Comments Cardiopulmonary Resuscitatio n (CPR) If patient has no pulse and is not breathing: DO NOT Attempt Resuscitation CPR Medical Interventions when N OT in Cardiopulmonary Arrest (If patient is found with a pulse and/or is breathing): Selective Treatment - Do NOT Intubate * Full Code Date Activated Date Inactivated Comments 12/15/2022 5:36 PM 12/18/2022 2:54 PM * DNR Date Activated Date Inactivated Comments 08/26/2022 1:44 PM 09/02/2022 12:16 PM * DNR Date Activated Date Inactivated Comments 08/21/2022 6:58 PM 08/26/2022 1:42 PM Healthcare Agents on File Name Relationship Healthcare Agent [facility] p Starla Seay Daughter Health Care Agent Nate Tariq Son Second Alternate Health Care Agent Care Teams Planishing Hammer Operator Relationship Specialty Start Date End Date Bryanna Gutierrez PA-C [address] [place] [address] [phone] PCP - General PHYSICIAN ADMINISTRATIVE TECHNICIAN 06/27/24 Ally Fisher, ANP- [address] [place] [phone] NURSE PRACTITIONER 04/02/17 Andrea Stubbs MD [address] [place] [phone] Consulting Physician INTERVENTIONAL CARDIOLOGY 09/13/21 Rancho Reid APRN [address] [place] [phone] Nurse Practitioner NURSE PRACTITIONER 10/23/21 Emmanuel Pillai MD [address] [place] [address] [phone] Consulting Physician CLINICAL CARDIAC ELECTROPHYSIOLOGY 03/18/22 Jennifer Hogan NP [address] [place] [address] [phone] Nurse Practitioner Assisted Living Facility 06/10/22
--- OUTSIDE RECORDS SUMMARY | 2024-07-14 18:51 | XMS_ITS | Data Portability ---
Author Organization [place] - [facility] [employer] Main Office Address [address] [place] [address] Assessment Encounter Date Assessment Date Assessment LastModified by Organization Details LastModified Time 03/18/2023 03/18/2023 HPI: 82-year-old female came in today for evaluation for knee pain. She has been having symptoms on and off for several years. She underwent right total knee arthroplasty 3 years ago and this is doing well. This was done by different doctor. She does not wish to discuss surgical options on left knee. She did come in requesting cortisone injection in the knee. She will have pain getting up from seated position or getting in a car. She does take Tylenol several times a day which seems to help a little bit with her symptoms. Physical exam: 82-year-old female very alert. She walks with a cane. She has mild effusion left knee. Range motion is from 3-135 degrees. Fyeq-yf-uhyroygm pain with patellofemoral grind. Mild tenderness over the medial joint line to palpation. Hip range of motion causes no discomfort. She walks relatively well without limp. There is no increased edema in both lower extremities. After ChloraPrep used on skin 20 mg Kenalog and 3 cc of 0.5% ropivacaine was injected into the left knee. Impression: 82-year-old female who has advanced patellofemoral osteoarthritis and some [id number]-mhndbykc medial compartment osteoarthritis left knee. She does not wish to discuss surgical option on the knee ever. She wishes to have injections and continue with her Tylenol. We will set up appointment to come back in 3 months for repeat injection. Not available 03/18/2023 16:35:02 06/17/2023 06/17/2023 HPI: Patient returns. She is here for cortisone injection left knee. Last shot was 3 months ago. It did help. She has advanced medial compartment osteoarthritis in the left knee. She is not a surgical candidate due to her advanced age as well as early dementia. She wished to have another injection today. Physical exam: 83-year-old female alert pleasant. She walks with a walker. She has a minimal effusion in the left knee. Mild varus alignment. Range of motion is from 5-125 degrees. No increased swelling in either lower extremity. After Betadine alcohol prep 20 mg Kenalog and 3 cc of 0.5% ropivacaine was injected into the left knee. Impression: 83-year-old female who has advanced medial compartment osteoarthritis. Shots are working well for her. We will see her in 3 months. Not available 06/17/2023 12:17:53 Plan of Treatment Reminders Order Date Submit Date Provider Last Modified By Organization Details Last Modified Time Details Appointments None recorded. Lab None recorded. Referral None recorded. Procedures injection/a spiration joint/bursa (PROC) - in office procedure, administere d by provider 2023 024 [email or web address] In-Office Order, Internal Use Only DO Not Attach Compendium DO Not Attach Compendium, Do Not Delete/merge, [id number] 10:36:22 injection/a spiration joint/bursa (PROC) - in office procedure, administere d by provider 2022 023 [email or web address] In-Office Order, Internal Use Only DO Not Attach Compendium DO Not Attach Compendium, Do Not Delete/merge, [id number] 16:27:56 Surgeries None recorded. Imaging XR, knee 2022 023 [email or web address] [facility], [address], [place], [address], 3 16:36:54 Medication Orders Kenalog 10 mg/mL suspension for injection 2023 024 [email or web address] Not available 4 16:42:23 ropivacaine (PF) 5 mg/mL (0.5 %) injection solution 2023 024 [email or web address] Not available 4 16:42:23 Kenalog 10 mg/mL suspension for injection 2022 023 [email or web address] Not available 3 16:32:12 ropivacaine (PF) 5 mg/mL (0.5 %) injection solution 2022 023 [email or web address] Not available 3 16:32:12 Patient TargetsNo targets recorded. Patient InstructionsNo instructions recorded. Reason for Referral None Reported. Results Created Date Observation Date Name Description Value Unit Range Abnormal Flag Note LastModifiedBy Organization Detail LastModifiedTime 03/18/20 23 XR, knee No observ ation record ed. [email or web address] [facility] [place] [address], [place], [address], 03/18/2023 16:33:08 Result Notes None recorded. Problems Name Problem SNOMED Code Status Onset Date Resolution Date Notes Provider Name and Address Organization Details Recorded Time Osteoarthri tis of left knee joint 2691857217865 09 Active 2022 JUNITO Nava, [facility] [employer] [facility] 3 15:42:01 Bilateral osteoarthri tis of knees 5139704634058 07 Active 2023 JUNITO Nava, [employer] [facility] [employer] [facility] 4 10:33:50 Problem Notes None recorded. Procedures Surgical History None recorded. Imaging Results Imaging Date Name Status LastModified by Organiz ation Details LastModified Time 03/18/2023 XR, knee completed [email or web address] [facility] [place] [address], [place], [address], 03/18/2023 16:33:08 Procedure Notes None recorded. Medical Equipment None Reported. Allergies No known drug allergies Medications Name Sig Start Date Stop Date Status Note LastModified by Organization Details LastModified Time atorvastatin 40 mg tablet active Not Available Not Available Not Available acetaminophe n 325 mg tablet 2022 active Not Available Not Available Not Avai lable donepezil 5 mg tablet active Not Available Not Available No t Available ofloxacin 0.3 % eye drops INSTILL 1 DROP INTO EACH EYE 4 TIMES DAILY FOR 7 DAYS active Not Available Not Available No t Available amiodarone 200 mg tablet active Not Available Not Available Not Available doxepin 25 mg capsule 03/18 completed Not Available Not Available Not Available doxepin 75 mg capsule active Not Available Not Available N ot Available midodrine 5 mg tablet active Not Available Not Available No t Available melatonin 3 mg tablet 03/18 completed Not Available Not Available Not Available spironolacto ne 25 mg tablet active Not Available Not Available Not Available levothyroxin e 25 mcg tablet active Not Available Not Available Not Available acetaminophe n ER 650 mg tablet,exten ded release active Not Available Not Available Not Available pantoprazole 20 mg tablet,delay ed release active Not Available Not Available N ot Available Kenalog 10 mg/mL suspension for injection in office 2023 active [facility]: 0003- [phone]- 20 Not Available Not Available Not Available benzonatate 100 mg capsule 03/18 completed Not Available Not Available Not Available levothyroxin e 50 mcg tablet active Not Available Not Available Not Available doxepin 100 mg capsule 03/18 completed Not Available Not Available Not Available docusate sodium 100 mg capsule 03/18 completed Not Available Not Available Not Available sertraline 25 mg tablet 03/18 completed Not Available Not Available Not Available aspirin 81 mg chewable tablet active Not Available Not Available Not Available furosemide 20 mg tablet active Not Available Not Available Not Available gabapentin 100 mg capsule active Not Available Not Available Not Available metoprolol succinate ER 25 mg tablet,exten ded release 24 hr active Not Available Not Available Not Available polyethylene glycol 3350 17 gram/dose oral powder 03/18 completed Not Available Not Available Not Available cefdinir 300 mg capsule 03/18 completed Not Available Not Available Not Available fluticasone propionate 50 mcg/actuatio n nasal spray,suspen alphonse active Not Available Not Available Not Available sertraline 50 mg tablet active Not Available Not Available Not Available Vitamin D3 25 mcg (1,000 unit) capsule active Not Available Not Available Not Available memantine 10 mg tablet active Not Available Not Available No t Available diclofenac 1 % topical gel active Not Available Not Available Not Available Mucus Relief ER 600 mg tablet, extended release 03/18 completed Not Available Not Available Not Available ropivacaine (PF) 5 mg/mL (0.5 %) injection solution in office 2023 active [facility] [phone] Not Available Not Available Not Available Breo Ellipta 100 mcg-25 mcg/dose powder for inhalation INHALE 1 PUFF BY MOUTH DAILY 03/18 completed Not Available Not Available Not Available Refresh Relieva 0.5 %-0.9 % eye drops active Not Available Not Available Not Available Paxlovid 150 mg-100 mg tablets in a dose pack (Renal Dose) 03/18 completed Not Available Not Available Not Available Ocuvite Adult 50 Plus 250 mg (90 mg-160 mg) capsule active Not Available Not Available Not Available Vitals Date Recorded Body height Body mass index (BMI) Body weight Provider Name and Address Organization Details Last Updated DateTime 03/18/2023 157.48 cm 27.1 kg/m2 29978.67 g JUNITO Nava [employer] 03/18/2023 15:52:22 Date Recorded Body height Provider Name an d Address Organization Details Last Updated DateTime 06/17/2023 157.48 cm JUNITO Nava [employer] 06/17/2023 10:33:14 Social History Question Answer Notes LastModified by Organizat ion Details LastModified Time Tobacco Smoking Status Never Smoker JUNITO Nava null [employer] 03/18/2023 15:41:03 What Is Your Level Of Alcohol Consumption? None [email or web address] Information not available 03/18/2023 Sex: Unknown Functional Status None recorded. Mental Status None recorded. Family History Relationship Description Onset Age of this Age Resolved Age Notes LastModified by Organization Details LastModified Time Father Heart disease Not available 2022 15:40:50 Medical History Condition Response ARTHRITIS Y Gynecological HistoryNo gynecological history recorded. Obstetrics History GPAL:G 0 P 0 0 0 0 Past Encounters Encounter ID Performer Location Encounter Start Date Encounter Closed Date Diagnosis/Indication Diagnosis SNOMED-CT Code Diagnosis ICD10 Code Diagnosis Note [id number] TOM [facility]ton [facility] [address] [place] [address] 03/18/2023 15:17:18 03/18/2023 16:36:54 Osteoarthritis of left knee joint 4885460348 89508 M17.12 [id number] TOM [facility] [address] [place], [place] [address] 06/17/2023 10:22:24 06/17/2023 13:42:32 Bilateral osteoarthritis of knees [id number] 09954 M17.0 Health Concerns Section Related Observation LastModified by Organization Detai ls LastModified Time None Recorded Concern Status LastModified by Organization Details LastModified Time None Recorded Advance Directives Directive None Recorded Payers Encounter Date Sequence Insurance Name Policy Number Policy Burgess Covered Member ID Burgess Member ID Guarantor Name 03/18/2023 1 [place] Vi Jones Meffert [id number] Vi Meffert 03/18/2023 2 [employer] (MEDICARE SUPPLEMENT) Vi Meffert [id number] Vi Meffert 06/17/2023 1 [place] Vi J Meffert [id number] Vi Meffert 06/17/2023 2 [employer] (MEDICARE SUPPLEMENT) Vi Meffert [id number] Vi Meffert OBGyn Episode No OBEpisode recorded.
[2024-07-14 19:15] VITALS: BP 94/56; PULSE 87; RESP 15; TEMP 36.4
[2024-07-14 19:50] VITALS: BP 106/94; PULSE 85; RESP 19; O2SAT 94
[2024-07-14 19:50] LABS: Hematocrit 42.5 % (37.0-47.0); Hemoglobin 13.3 g/dL (12.0-15.0); Mean Corpuscular HGB Conc 31.3 g/dl (32-36); Mean Corpuscular Hemoglobin 29.9 pg (26-34); Mean Corpuscular Volume 95.5 fl (80-100); Mean Platelet Volume 12.2 fl (7.4-10.4); Platelet Count Result 157 k/mm3 (150-375); Red Blood Count 4.45 M/mm3 (4.2-5.4); White Blood Count 10.9 K/mm3 (4.5-10.0)
[2024-07-14] MEDS: SODIUM CHLORIDE 0.9% IV 1,000 ML 999 ML IV CONT ×2 (19:51→20:07)
[2024-07-14 19:58] LABS: Lactic Acid Reflex 3.5 mmol/L (0.7-2.0)
[2024-07-14 19:59] LABS: Alanine Aminotransferase 122 U/L (6-35); Albumin Level 3.5 g/dL (3.5-5.1); Alkaline Phosphatase 152 U/L (38-126); Anion Gap 13 mmol/L (4-12); Aspartate Amino Transferase 240 U/L (14-36); Blood Urea Nitrogen 63 mg/dL (7-17); Calcium 10.2 mg/dL (8.4-10.2); Carbon Dioxide 23 mmol/L (22-30); Chloride 107 mmol/L (98-107); Estimated CRCL calculation 16 ml/min; Estimated Glomerular Filt Rate 23; Glucose 144 mg/dL (65-110); Lipase 45 U/L (23-300); Potassium 4.4 mmol/L (3.4-5.0); Sodium 143 mmol/L (137-145)
[2024-07-14 20:16] LABS: Add Urine Microscopic? YES; Appearance Urine Turbid (Clear); Bilirubin Urine 1+ (Negative); Blood Urine 2+ (Negative); Color Urine Dark Yellow (Yellow); Glucose Urine UA Negative (Negative); Ketones Urine Negative (Negative); Leukocyte Esterase Ur 3+ LEU/UL (Negative); Nitrate Urine Negative (Negative); Protein Urine 3+ mg/dL (Negative); Specific Grav Ur 1.017 (1.001-1.035); Urobilinogen Urine 0.2 mg/dL (<2.0); pH Urine 7.5 (5.0-9.0)
[2024-07-14 20:24] LABS: Band Neutrophils Percent 15 % (0-6); Lymphocytes Absolute Manual 0.54 K/mm3 (1.1-4.5); Lymphocytes Percent Manual 5 % (18-44); Monocytes Absolute Manual 0.76 K/mm3 (0.1-0.90); Monocytes Percent Manual 7 % (3-9); Neutrophils Absolute Manual 9.59 K/mm3 (1.7-7.2); Neutrophils Percent Manual 73 % (46-73); Platelet Estimate Adequate (Adequate); Smudge Cells FEW; Total Cells Counted 100
[2024-07-14 20:25] LABS: Schistocytes None Seen
[2024-07-14 20:41] LABS: RBC Urine 21-50 /hpf (0-2); WBC Urine >100 /hpf (0-3)
[2024-07-14 20:42] LABS: Bacteria Urine 4+ /hpf; Squamous Epithelial Cell Urine Few /hpf (Few)
[2024-07-14 20:43] LABS: Mucus Urine Present /lpf
--- NOTE | 2024-07-14 21:14 | ED.GENADULT ---
HPI - General Adult General Chief complaint: Urogenital-Female Stated complaint: uti Time Seen by Provider: 07/14/24 18:22 History of Present Illness HPI narrative: Patient is a 84-year-old female sent to the ER with concerns for UTI. [facility] the [facility]. Patient chronically debilitated and demented. Unable provide any history. Seems to have abdominal pain on exam. Appears very dry. Blood pressure low on arrival. Related Data Home Medications ?Medication ?Instructions ?Recorded ?Confirmed ?Last Taken ?Type fluticasone furoate 200 1 inh inhalation DAILY 06/29/24 06/29/24 Unknown History mcg-vilanterol 25 mcg/dose inhalation powder (Breo Ellipta) melatonin 10 mg capsule 3 mg PO QHS 06/29/24 06/29/24 Unknown History Allergies Allergy/AdvReac Type Severity Reaction Status Date / Time gabapentin Allergy Unknown UNKNOWN-PT Verified 06/29/24 07:11 UNABLE TO RECALL prochlorperazine Allergy Unknown Unknown-PT Verified 06/29/24 07:11 UNABLE TO RECALL tramadol Allergy Unknown UNKNOWN-PT Verified 06/29/24 07:11 UNABLE TO RECALL sacubitril (From Entresto) AdvReac Severe Confusion Verified 06/29/24 07:11 valsartan (From Entresto) AdvReac Severe Confusion Verified 06/29/24 07:11 Review of Systems Review of Systems: ROS unobtainable: Yes unobtainable due to mental status PMFSH Past Medical History Medical History Ulcer of left heel Hypothyroidism Balance problem Weight loss Risk for falls Dementia Severe CHF (congestive heart failure) Tricuspid regurgitation Mitral regurgitation Cardiomyopathy CAD (coronary artery disease) Stress incontinence Hyperlipidemia Memory loss Depression with anxiety Varicose vein of leg Hypertension Surgical History Surgical History S/P TAVR (transcatheter aortic valve replacement) S/P total knee arthroplasty History of arthroplasty of right knee (03/26/21) History of spinal surgery x2 History of hysterectomy (1967) History of tonsillectomy (194) History of cardiac radiofrequency ablation (RFA) 2015, Dr. Jon Mota at [facility] . History of bladder surgery 1990 and 1992 Family History Family History Other Heart disease Social History Social History Social History: Surrogate decision maker: Jennifer Seay, granddaughter. Code status: Full code. 05/31/24 very confident with medical forms/received assistance for care for elder or disabled Smoking status: Never smoker Second hand tobacco smoke exposure: No Alcohol intake: never Substance use: never Substance use type: does not use Do You Feel Safe in your Home?: Yes Lack of Transportation: No Lack of Food: Never True Current Housing: I Have Housing Concerned About Future Housing: No Difficulty Paying Gas/Electric Bills: No Difficulty Paying for Meds: No Currently Unemployed: No Education: High School Diploma/GED Difficulty w/ Childcare or Family Care: No Living arrangements: alone Additional living arrangements comments: The patient lives in her own home in [place]. She has 4 children. Occupation/Education: retired Additional occupation/education comments: Retired. Gender identity (if verbalized by the patient): Female Exam Narrative: GENERAL: Chronically ill-appearing and frail. HEAD: Normocephalic, atraumatic. EYES: PERRL and EOMI. ENT: Dry mucous membranes. CHEST: Clear to auscultation. No respiratory distress. HEART: Regular rate and rhythm. Normal peripheral pulses. ABDOMEN: Soft, tender palpation bilateral lower quadrants., nondistended EXTREMITIES: Normal range of motion. No edema. SKIN: Warm, dry, no rash. NEURO: Patient awake alert but not oriented and does not follow commands. Course Course Emergency Course: This patient with presentation concerning for sepsis. Lactate elevated, 2 L IV fluid given which meets 30 milliliter/kilogram fluid bolus requirement. Blood cultures obtained and ceftriaxone given. Patient's daughter educated on diagnosis and treatment plan and verbalized understanding. Patient is a DNR. Vital Signs Vital signs: Vital Signs Temperature 97.6 F 07/14/24 19:15 Pulse Rate 87 07/14/24 19:15 Respiratory Rate 15 07/14/24 19:15 Blood Pressure 94/56 L 07/14/24 19:15 Oxygen Delivery Room Air 07/14/24 19:15 Temperature 97.6 F 07/14/24 19:15 Pulse Rate 80 07/14/24 22:22 Respiratory Rate 19 07/14/24 22:22 Blood Pressure 124/68 07/14/24 21:19 Pulse Oximetry 95 07/14/24 22:22 Oxygen Delivery Room Air 07/14/24 19:15 Medical Decision Making Vital Signs Vital Signs: Vital Signs Temperature 97.6 F 07/14/24 19:15 Pulse Rate 87 07/14/24 19:15 Respiratory Rate 15 07/14/24 19:15 Blood Pressure 94/56 L 07/14/24 19:15 Oxygen Delivery Room Air 07/14/24 19:15 Temperature 97.6 F 07/14/24 19:15 Pulse Rate 80 07/14/24 22:22 Respiratory Rate 19 07/14/24 22:22 Blood Pressure 124/68 07/14/24 21:19 Pulse Oximetry 95 07/14/24 22:22 Oxygen Delivery Room Air 07/14/24 19:15 Lab Data 07/14/24 19:40 07/14/24 19:40 Labs: Lab Results 07/14/24 Range/Units 19:40 WBC 10.9 H (4.5-10.0) K/mm3 RBC 4.45 (4.2-5.4) M/mm3 Hgb 13.3 D (12.0-15.0) g/dL Hct 42.5 (37.0-47.0) % MCV 95.5 (80-100) fl MCH 29.9 (26-34) pg MCHC 31.3 L (32-36) g/dl RDW 15.0 H (11.5-14.5) % Plt Count 157 (150-375) k/mm3 MPV 12.2 H (7.4-10.4) fl Immature Gran % (Auto) Not Reportable Neut % (Auto) Not Reportable Lymph % (Auto) Not Reportable Becker % (Auto) Not Reportable Eos % (Auto) Not Reportable Baso % (Auto) Not Reportable Lymph # (Auto) Not Reportable Becker # (Auto) Not Reportable Eos # (Auto) Not Reportable Baso # (Auto) Not Reportable Abs Immat Gran (auto) Not Reportable Absolute Neuts (auto) Not Reportable Absolute Nucleated RBC Not Reportable Total Counted 100 Neutrophils % (Manual) 73 (46-73) % Band Neutrophils % 15 H (0-6) % Lymphocytes % (Manual) 5 L (18-44) % Monocytes % (Manual) 7 (3-9) % Nucleated RBC % Not Reportable Abs Neuts (Manual) 9.59 H (1.7-7.2) K/mm3 Abs Lymphs (Manual) 0.54 L (1.1-4.5) K/mm3 Abs Monocytes (Manual) 0.76 (0.1-0.90) K/mm3 Smudge Cells Few Platelet Estimate Adequate (Adequate) Schistocytes None seen Sodium 143 (137-145) mmol/L Potassium 4.4 (3.4-5.0) mmol/L Chloride 107 (98-107) mmol/L Carbon Dioxide 23 (22-30) mmol/L Anion Gap 13 H (4-12) mmol/L BUN 63 H D (7-17) mg/dL Creatinine 2.07 H (0.7-1.0) mg/dL Estim Creat Clear Calc 16 ml/min Estimated GFR 23 L (59 - ) Glucose 144 H (65-110) mg/dL Lactic Acid 3.5 H (0.7-2.0) mmol/L Calcium 10.2 (8.4-10.2) mg/dL Total Bilirubin 1.0 (0.2-1.3) mg/dL AST 240 H (14-36) U/L ALT 122 H (6-35) U/L Alkaline Phosphatase 152 H (38-126) U/L Total Protein 7.0 (6.3-8.2) g/dL Albumin 3.5 (3.5-5.1) g/dL Lipase 45 (23-300) U/L Urine Color Dark yellow (Yellow) Urine Appearance Turbid H (Clear) Urine pH 7.5 (5.0-9.0) Ur Specific [employer] 1.017 (1.001-1.035) Urine Protein 3+ H (Negative) mg/dL Urine Glucose (UA) Negative (Negative) mg/dL Urine Ketones Negative (Negative) mg/dL Ur Blood (Man) 2+ H (Negative) Urine Nitrate Negative (Negative) Urine Bilirubin 1+ H (Negative) Urine Urobilinogen 0.2 (<2.0) mg/dL Leukocyte Esterase Rfl 3+ H (Negative) NICOLÁS/UL Urine RBC 21-50 H (0-2) /hpf Urine WBC >100 (0-3) /hpf Ur Squamous Epith Cells Few (Few) /hpf Urine Bacteria 4+ H (None) /hpf Urine Mucus Present /lpf Imaging Data Radiologist's impression: ITS Impressions Abdomen/Pelvis CT 07/14/24 20:51 IMPRESSION: Periportal edema with patchy infiltration of the bilateral lung bases. Fecal impaction. Small fat-containing right inguinal hernia. Discharge Plan Discharge Clinical Impression: Sepsis, Acute UTI, CECIL (acute kidney injury) Patient Disposition: Still a Patient Condition: Guarded Prognosis Patient Language: Uzbek Prescriptions: No Action bupropion HCl 100 mg tablet 100 mg PO BID Qty: 90 0RF levothyroxine 75 mcg tablet 75 mcg PO DAILY Qty: 90 0RF sennosides-docusate sodium [Senna Plus] 8.6-50 mg tablet 1 tab-cap PO BID PRN (Reason: constipation) Qty: 90 0RF sertraline 100 mg tablet 100 mg PO DAILY Qty: 90 0RF skin prep See Rx Instructions topical BID Qty: 30 0RF Rx Instructions: AM and PM topically twice a day; acetaminophen [Tylenol] 325 mg tablet 650 mg PO Q6H PRN (Reason: fever or pain) Qty: 90 0RF bisacodyl 10 mg suppository 10 mg RECTAL DAILY PRN (Reason: constipation) Qty: 12 0RF loperamide 2 mg capsule 2 mg PO Q6H PRN (Reason: loose stool) Qty: 90 0RF polyethylene glycol 3350 [Miralax] 17 gram/dose powder 17 g PO DAILY PRN (Reason: constipation) Qty: 119 0RF Probiotic Acidophilus 250 million cell capsule 250 mmu cells PO BID Qty: 180 0RF docusate sodium [Colace] 100 mg capsule 100 mg PO BID PRN (Reason: constipation) Qty: 90 0RF diclofenac sodium 1 % gel 2 g topical TID Qty: 100 2RF Rx Instructions: apply to single joint up to TID fluticasone furoate-vilanterol [Breo Ellipta] 200-25 mcg/dose blister with device 1 inh inhalation DAILY melatonin 10 mg capsule 3 mg PO QHS pantoprazole 20 mg tablet,delayed release (DR/EC) 20 mg PO QHS Qty: 90 0RF cholecalciferol (vitamin D3) [Vitamin D3] 25 mcg (1,000 unit) capsule 25 mcg PO DAILY Qty: 90 0RF amiodarone 200 mg tablet 200 mg PO ONCE Qty: 90 0RF ondansetron 4 mg tablet,disintegrating 4 mg PO Q8H PRN (Reason: nausea and vomiting) Qty: 30 1RF folic acid 1 mg tablet 1 mg PO DAILY Qty: 90 0RF ocuvite eye health gummy 2 gummy PO .QD Qty: 90 3RF potassium chloride 20 mEq/15 mL liquid 10 meq PO DAILY Qty: 450 0RF midodrine 2.5 mg tablet 2.5 mg PO .COMPLEX Qty: 180 1RF Rx Instructions: 2.5 mg orally in AM and at 4PM.; Follow-up/Referrals: Bryanna Gutierrez PA-C [Primary Care Provider] -
[2024-07-14 21:19] VITALS: BP 124/68; PULSE 85; RESP 15; O2SAT 93
[2024-07-14 21:47] LABS: Reflex Lactic Acid Yes or No Add Lactic
--- NOTE | 2024-07-14 21:55 | PM.IMHP ---
H&P: HPI History of Present Illness Date/Time: 07/14/24 22:30 Chief Complaint: Syncope. Narrative: This is an 84-year-old female with history of dementia, heart failure with reduced ejection fraction, severe aortic stenosis status post TAVR, coronary artery disease, right atrial myxoma, hypertension, hyperlipidemia, depression, and anxiety who presented to the emergency department via EMS for evaluation after syncopal episode. She is unable to provide any meaningful history and as such the following information is obtained via a review of her electronic medical records as well as information provided by her daughter. She has been having problems with orthostatic hypotension and recently had her tamsulosin, donepezil, and memantine. She is not eating much and has been losing weight. Today she reportedly had a brief syncopal episode while transferring. Staff at her memory care facility also mention that she has had pus in her urine for about a week. At the time my evaluation the patient complains of discomfort throughout the lower abdomen on examination. She also endorses mild dysuria. She does not provide much else in the way of history but she does deny headache, chest pain, shortness of breath, and nausea. In the ED: She was afebrile on arrival with a blood pressure was 94/56. CT of the abdomen and pelvis showed fecal impaction and a small fat containing right inguinal hernia. Visualized portions of the lower lung showed patchy bibasilar opacification with right basilar consolidation. Labs were significant for WBC count of 10.9 with 15% bands, BUN 63, creatinine 2.07, lactic acid 3.5, AST 240, ALT 122, alkaline phosphatase 152. She was given 2 L normal saline bolus with improvement her blood pressures. She was also started on ceftriaxone for urinary tract infection and she is being admitted in this setting for further treatment. Review of Systems Review of Systems: Unable to obtain given clinical condition. [facility] Past Medical History Medical History (Updated 07/15/24 @ 03:57 by Ebony Ortiz PA-C) Chronic kidney disease, stage 3 Dementia Atrial myxoma Coronary artery disease Heart failure with reduced ejection fraction Hypothyroidism Balance problem Weight loss Tricuspid regurgitation Mitral regurgitation Cardiomyopathy Stress incontinence Hyperlipidemia Depression with anxiety Hypertension Surgical History Surgical History (Updated 07/15/24 @ 03:53 by Ebony rOtiz PA-C) History of transcatheter aortic valve replacement (TAVR) History of arthroplasty of right knee (03/26/21) History of spinal surgery x2 History of hysterectomy (1967) History of tonsillectomy (1948) History of cardiac radiofrequency ablation (RFA) 2016, Dr. Jon Mota at [place], [place] [facility] . History of bladder surgery 1990 and 1992 Family History Family History Other Heart disease Social History Social History (Updated 07/15/24 @ 03:54 by Ebony Ortiz PA-C) Social History: Surrogate medical decision maker: Frida Seay. Code status: DO NOT RESUSCITATE. Smoking status: Never smoker Second hand tobacco smoke exposure: No Alcohol intake: never Substance use: never Substance use type: does not use Do You Feel Safe in your Home?: Yes Lack of Transportation: No Lack of Food: Never True Current Housing: I Have Housing Concerned About Future Housing: No Difficulty Paying Gas/Electric Bills: No Difficulty Paying for Meds: No Currently Unemployed: No Education: High School Diploma/GED Difficulty w/ Childcare or Family Care: No Living arrangements: [facility] Additional living arrangements comments: Patient lives in a memory care facility. She has 4 children. Occupation/Education: retired Additional occupation/education comments: Retired. Spiritual care concerns: No Meds Home Medications and Allergies Home Medications ?Medication ?Instructions ?Recorded ?Confirmed ?Type cholecalciferol (vitamin D3) 25 25 mcg PO DAILY #90 caps 03/03/22 07/14/24 Rx mcg (1,000 unit) capsule (Vitamin D3) pantoprazole 20 mg tablet,delayed 20 mg PO QHS #90 tabs 03/03/22 07/14/24 Rx release Lactobacillus acidophilus 250 250 mmu cells PO BID #180 caps 04/22/24 07/14/24 Rx million cell capsule (Probiotic Acidophilus) acetaminophen 325 mg tablet 650 mg (2 x 325 mg) PO Q6H PRN 04/22/24 07/14/24 Rx (Tylenol) fever or pain #90 tabs bisacodyl 10 mg rectal suppository 10 mg RECTAL DAILY PRN 04/22/24 07/14/24 Rx constipation #12 ea levothyroxine 75 mcg tablet 75 mcg PO DAILY #90 tabs 04/22/24 07/14/24 Rx loperamide 2 mg capsule 2 mg PO Q6H PRN loose stool #90 04/22/24 07/14/24 Rx caps polyethylene glycol 3350 17 17 g PO DAILY PRN constipation 04/22/24 07/14/24 Rx gram/dose oral powder (Miralax) #119 grams sennosides 8.6 mg-docusate sodium 1 tab-cap PO BID PRN constipation 04/22/24 07/14/24 Rx 50 mg tablet (Senna Plus) #90 tabs sertraline 100 mg tablet 100 mg PO DAILY #90 tabs 04/22/24 07/14/24 Rx folic acid 1 mg tablet 1 mg PO DAILY #90 tabs 04/28/24 07/14/24 Rx ocuvite eye health gummy 2 gummy PO .QD #90 gummies 06/01/24 07/14/24 Rx potassium chloride 20 mEq/15 mL 10 meq (7.5 mL) PO DAILY #450 mL 06/01/24 07/14/24 Rx oral liquid diclofenac sodium 1 % topical gel 2 g topical TID #100 grams 06/03/24 07/14/24 Rx midodrine 2.5 mg tablet 2.5 mg PO .COMPLEX #180 tabs 06/07/24 07/14/24 Rx fluticasone furoate 200 1 inh inhalation DAILY 06/29/24 07/14/24 History mcg-vilanterol 25 mcg/dose inhalation powder (Breo Ellipta) melatonin 10 mg capsule 3 mg PO QHS 06/29/24 07/14/24 History amiodarone 200 mg tablet 200 mg PO Q24H 07/14/24 07/14/24 History bupropion HCl 100 mg tablet 100 mg PO DAILY 07/14/24 07/14/24 History docusate sodium 100 mg capsule 100 mg PO DAILY PRN constipation 07/14/24 07/14/24 History (Colace) ondansetron 4 mg disintegrating 4 mg PO Q6H PRN nausea and vomiting 07/14/24 07/14/24 History tablet Allergies Allergy/AdvReac Type Severity Reaction Status Date / Time gabapentin Allergy Unknown UNKNOWN-PT Verified 06/29/24 07:11 UNABLE TO RECALL prochlorperazine Allergy Unknown Unknown-PT Verified 06/29/24 07:11 UNABLE TO RECALL tramadol Allergy Unknown UNKNOWN-PT Verified 06/29/24 07:11 UNABLE TO RECALL sacubitril (From Entresto) AdvReac Severe Confusion Verified 06/29/24 07:11 valsartan (From Entresto) AdvReac Severe Confusion Verified 06/29/24 07:11 Vital Signs Vital Signs - 24 hr 07/14/24 19:15 07/14/24 19:50 07/14/24 21:19 Temperature 97.6 F Pulse Rate 87 85 85 Respiratory Rate 15 19 15 Blood Pressure 94/56 L 106/94 H 124/68 Pulse Oximetry 94 93 Oxygen Delivery Room Air Exam Narrative: General: Thin, frail elderly female supine in bed. Weight: 61 kg. BMI: 22.4. HEENT: Normocephalic, atraumatic. PERRL, EOMI. Sclera anicteric. Dry mucous membranes. Neck: Supple. No JVD. Respiratory: Respirations are nonlabored. Lung sounds are diminished due to poor effort. Occasional cough oral Cardiovascular: Regular rate and rhythm with S1-S2. Systolic murmur at the upper sternal border and left lower sternal border. Gastrointestinal: Abdomen is soft and nondistended with positive bowel sounds. She is tender to palpation in the suprapubic region and somewhat throughout the periumbilical region. No guarding or rebound tenderness. Skin: Warm and dry. Extremities: No cyanosis, clubbing, or edema. Radial and pedal pulses intact. Neurological: Alert. She did not answer orientation questions. Cranial nerves 2-12 are grossly intact. Generalized weakness without gross focal findings. Psychiatric: Pleasantly confused and cooperative. H&P: Results Labs Labs: Short CBC 07/14/24 Range/Units 19:40 WBC 10.9 H (4.5-10.0) K/mm3 Hgb 13.3 D (12.0-15.0) g/dL Hct 42.5 (37.0-47.0) % Plt Count 157 (150-375) k/mm3 BMP 07/14/24 19:40 Sodium 143 Potassium 4.4 Chloride 107 Carbon Dioxide 23 BUN 63 H D Creatinine 2.07 H Glucose 144 H Calcium 10.2 Liver Function 07/14/24 Range/Units 19:40 Total Bilirubin 1.0 (0.2-1.3) mg/dL AST 240 H (14-36) U/L ALT 122 H (6-35) U/L Alkaline Phosphatase 152 H (38-126) U/L Albumin 3.5 (3.5-5.1) g/dL Urine 07/14/24 Range/Units 19:40 Urine Color Dark yellow (Yellow) Urine Appearance Turbid H (Clear) Urine pH 7.5 (5.0-9.0) Ur Specific [place] 1.017 (1.001-1.035) Urine Protein 3+ H (Negative) mg/dL Urine Glucose (UA) Negative (Negative) mg/dL Impressions Abdomen/Pelvis CT 07/14/24 20:51 IMPRESSION: Periportal edema with patchy infiltration of the bilateral lung bases. Fecal impaction. Small fat-containing right inguinal hernia. Assessment and Plan Assessment and plan (1) Sepsis: Code(s): A41.9 - Sepsis, unspecified organism Status: Acute (2) Urinary tract infection: Code(s): N39.0 - Urinary tract infection, site not specified Status: Acute (3) Lung consolidation: Code(s): J18.1 - Lobar pneumonia, unspecified organism Status: Acute (4) Syncope: Code(s): R55 - Syncope and collapse Status: Acute (5) Acute on chronic kidney failure: Code(s): N17.9 - Acute kidney failure, unspecified; N18.9 - Chronic kidney disease, unspecified Status: Acute (6) Transaminitis: Code(s): R74.01 - Elevation of levels of liver transaminase levels Status: Acute (7) Heart failure with reduced ejection fraction: Code(s): I50.20 - Unspecified systolic (congestive) heart failure Status: Acute (8) Hypothyroidism: Code(s): E03.9 - Hypothyroidism, unspecified Status: Acute (9) Dementia: Code(s): F03.90 - Unspecified dementia, unspecified severity, without behavioral disturbance, psychotic disturbance, mood disturbance, and anxiety Status: Acute Plan The patient presented to the emergency department via EMS from her memory care facility for evaluation after syncopal episode as detailed in HPI. Labs, imaging, EKG, and all reports were personally reviewed. She meets sepsis criteria on arrival with hypotension, leukocytosis with bandemia, acute on chronic kidney injury, and lactic acidosis in the setting of infection. Source of infection appears to be her urine however CT scan shows some consolidation at the right base as well. She has been started on ceftriaxone and doxycycline. Swallow study may be appropriate when she is feeling better to rule out silent aspiration. Blood and urine cultures are pending. Sputum culture has been ordered. Blood pressures have improved with IV fluids and her lactic acid level is coming down. Avoid over-hydration given history of reduced ejection fraction. She has a history of orthostatic hypotension and blood pressures were soft on arrival and I suspect this is the cause of her syncope although she is on amiodarone for history of nonsustained ventricular tachycardia. No further workup is being pursued at this time as she is a DNR status and daughter does not wish for a big workup. Worsening kidney function is likely due to a combination of hypoperfusion from hypotension and hypovolemia from poor oral intake. I expect it will improve now that her blood pressures are better and she has received adequate IV fluid rehydration. LFTs are elevated though she does not have any localizing symptoms on exam of the right upper quadrant and CT scan did not show any acute findings. We will discontinue to monitor those for now; CK was within normal limits. Her home medications will be reviewed and resumed as appropriate. The patient's medical management will be taken over by the hospitalist team in a.m. Quality VTE Prophylaxis VTE prophylaxis: pharmacologic ordered The patient has been admitted under observation status. Hospitalist [facility] Advance Care Plan I have confirmed that the patient's Advanced Care Plan is present, code status is documented, or surrogate decision maker is listed in patient medical record.: Yes Medication Reconciliation I have utilized all available resources to obtain, update and review the patients current medications (includes all prescriptions, OTC, herbals, cannabis, and nutritional supplements).: Yes
[2024-07-14 22:22] VITALS: PULSE 80; RESP 19; O2SAT 95
[2024-07-14 22:59] VITALS: BMI 22.4
[2024-07-14] MEDS: SODIUM CHLORIDE 0.9% IV 1,000 ML 125 ML IV CONT (23:00)
--- NOTE | 2024-07-14 23:09 | PC.NURSE ---
This patient, Vi Palmer, was admitted to 3 [facility] Surg Room 330-02. Patient/family oriented to hospital policies and general routines including ID bracelet, bed and alarms, visiting hours, pain management, procedures, bathroom and other care routines, personal items, smoking policy, room service/diet, and visiting hours. Information on how to activate the Rapid Response Team has been discussed. Patient/Family are encouraged to report perceived risks to care and to ask questions if they do not understand what they are told or what they should do.
[2024-07-15 00:29] LABS: Lactic Acid 2.8 mmol/L (0.7-2.0)
[2024-07-15 00:33] VITALS: BP 107/85; PULSE 64; RESP 16; TEMP 34.3; O2SAT 95
[2024-07-15 00:40] LABS: Anion Gap 10 mmol/L (4-12); Blood Urea Nitrogen 60 mg/dL (7-17); Calcium 9.2 mg/dL (8.4-10.2); Carbon Dioxide 21 mmol/L (22-30); Chloride 113 mmol/L (98-107); Creatine Kinase 111 U/L (30-135); Estimated CRCL calculation 17 ml/min; Estimated Glomerular Filt Rate 25; Glucose 101 mg/dL (65-110); Magnesium 1.6 mg/dL (1.6-2.3); Potassium 3.9 mmol/L (3.4-5.0); Sodium 144 mmol/L (137-145)
[2024-07-15] MEDS: PANTOPRAZOLE SOD SESQUIHYDRATE 20 MG TAB PO ×2 (01:11→22:00)
[2024-07-15] MEDS: DOXYCYCLINE HYCLATE 100 MG TABLET PO ×3 (01:11→22:00)
[2024-07-15] MEDS: SODIUM CHLORIDE 0.9% IV 1,000 ML 75 ML IV CONT (04:19)
[2024-07-15 06:00] VITALS: BP 123/66; PULSE 92; RESP 16; O2SAT 92
[2024-07-15 06:15] LABS: Hematocrit 34.4 % (37.0-47.0); Hemoglobin 10.7 g/dL (12.0-15.0); Mean Corpuscular HGB Conc 31.1 g/dl (32-36); Mean Corpuscular Hemoglobin 29.8 pg (26-34); Mean Corpuscular Volume 95.8 fl (80-100); Platelet Count Result 121 k/mm3 (150-375); Red Blood Count 3.59 M/mm3 (4.2-5.4); Red Cell Distribution Width 14.9 % (11.5-14.5); White Blood Count 10.4 K/mm3 (4.5-10.0)
[2024-07-15 06:31] LABS: Alanine Aminotransferase 83 U/L (6-35); Albumin Level 2.5 g/dL (3.5-5.1); Alkaline Phosphatase 124 U/L (38-126); Anion Gap 10 mmol/L (4-12); Aspartate Amino Transferase 157 U/L (14-36); Bilirubin,Total 0.6 mg/dL (0.2-1.3); Blood Urea Nitrogen 60 mg/dL (7-17); Calcium 9.1 mg/dL (8.4-10.2); Carbon Dioxide 19 mmol/L (22-30); Chloride 117 mmol/L (98-107); Estimated CRCL calculation 17 ml/min; Estimated Glomerular Filt Rate 25; Glucose 94 mg/dL (65-110); Magnesium 1.5 mg/dL (1.6-2.3); Potassium 3.9 mmol/L (3.4-5.0); Sodium 146 mmol/L (137-145)
[2024-07-15] MEDS: LEVOTHYROXINE SODIUM 75 MCG TABLET PO (06:41)
[2024-07-15 09:36] VITALS: PULSE 90; RESP 22; O2SAT 91
[2024-07-15] MEDS: FLUTICASONE/SALMETEROL 230-21 MCG INHALER 1 PUFF 2 PUFF INHALATION ×2 (09:36→22:17)
[2024-07-15 11:18] VITALS: PULSE 90
[2024-07-15] MEDS: POTASSIUM CHLORIDE 10 MEQ ER TABLET PO (11:18)
[2024-07-15] MEDS: buPROPion HCL 100 MG TABLET PO (11:18)
[2024-07-15] MEDS: ACIDOPHILUS/BULGARICUS CHEWABLE TABLET 1 TABLET BY MOUTH (11:18)
[2024-07-15] MEDS: AMIODARONE HCL 200 MG TABLET PO (11:18)
[2024-07-15] MEDS: OPTI-GEN TAB 1 TABLET PO (11:18)
[2024-07-15] MEDS: SERTRALINE HCL 50 MG TABLET 100 MG PO (11:19)
[2024-07-15] MEDS: CHOLECALCIFEROL 1,000 UNITS TABLET 1000 UNITS PO (11:19)
[2024-07-15] MEDS: FOLIC ACID 1 MG TABLET PO (11:19)
[2024-07-15] MEDS: DICLOFENAC SODIUM 1% 100 GM GEL (*BKC) 1 APPLIC TOPICAL (11:20)
[2024-07-15] MEDS: MIDODRINE HCL 2.5 MG TABLET PO (11:22)
--- NOTE | 2024-07-15 14:15 | PM.IMPN ---
Progress Note: A&P Assessment and Plan (1) Sepsis: Code(s): A41.9 - Sepsis, unspecified organism Status: Acute (2) Urinary tract infection: Code(s): N39.0 - Urinary tract infection, site not specified Status: Acute (3) Lung consolidation: Code(s): J18.1 - Lobar pneumonia, unspecified organism Status: Acute (4) Syncope: Code(s): R55 - Syncope and collapse Status: Acute (5) Acute on chronic kidney failure: Code(s): N17.9 - Acute kidney failure, unspecified; N18.9 - Chronic kidney disease, unspecified Status: Acute (6) Transaminitis: Code(s): R74.01 - Elevation of levels of liver transaminase levels Status: Acute (7) Heart failure with reduced ejection fraction: Code(s): I50.20 - Unspecified systolic (congestive) heart failure Status: Acute (8) Hypothyroidism: Code(s): E03.9 - Hypothyroidism, unspecified Status: Acute (9) Dementia: Code(s): F03.90 - Unspecified dementia, unspecified severity, without behavioral disturbance, psychotic disturbance, mood disturbance, and anxiety Status: Acute Plan This is an 84-year-old female with history of dementia, heart failure with reduced ejection fraction, severe aortic stenosis status post TAVR, coronary artery disease, right atrial myxoma, hypertension, hyperlipidemia, depression, and anxiety who presented to the emergency department via EMS for evaluation after syncopal episode. She has been having problems with orthostatic hypotension and recently had her tamsulosin, donepezil, and memantine. She is not eating much and has been losing weight. Today she reportedly had a brief syncopal episode while transferring. Staff at her memory care facility also mention that she has had pus in her urine for about a week. She also reported or abdominal discomfort. She also endorses mild dysuria. No chest pain. She has also been noted to be coughing frequently. In the ED: She was afebrile on arrival with a blood pressure was 94/56. CT of the abdomen and pelvis showed fecal impaction and a small fat containing right inguinal hernia. Visualized portions of the lower lung showed patchy bibasilar opacification with right basilar consolidation. Labs were significant for WBC count of 10.9 with 15% bands, BUN 63, creatinine 2.07, lactic acid 3.5, AST 240, ALT 122, alkaline phosphatase 152. She was given 2 L normal saline bolus with improvement her blood pressures. She was also started on ceftriaxone for urinary tract infection and she is being admitted in this setting for further treatment. She also had decubitus ulcer developed in her coccyx She meets sepsis criteria on arrival with hypotension, leukocytosis with bandemia, acute on chronic kidney injury, and lactic acidosis in the setting of infection. Source of infection appears to be her urine however CT scan shows some consolidation at the right base as well. She has been started on ceftriaxone and doxycycline. Possible aspiration and will have swallow study performed. Pancultured. Follow cultures Borderline blood pressure improved with IV hydration. Patient also on midodrine at home. Elevated LFTs CECIL on CKD stage 3 baseline creatinine low 1s. Admission creatinine 2. Continue IV hydration Decubitus ulcer wound care consult Pneumonia ceftriaxone and doxycycline Historyof orthostatic hypotension A history of heart failure with reduced ejection fraction recheck echo Dementia History of anemia likely hemoconcentrated on admission. 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 DNR DVT prophylaxis Subjective Date/time seen: 07/15/24 14:15 Interval history: Patient family at bedside. Patient confused. Remains afebrile. Review of Systems Review of Systems: ROS unobtainable: Yes unobtainable due to mental status Exam Narrative: General: Thin, frail elderly female supine in bed. HEENT: Normocephalic, atraumatic. PERRL, EOMI. Sclera anicteric. Dry mucous membranes. Neck: Supple. No JVD. Respiratory: Respirations are nonlabored. Lung sounds are diminished due to poor effort. Occasional cough oral Cardiovascular: Regular rate and rhythm with S1-S2. Systolic murmur at the upper sternal border and left lower sternal border. Gastrointestinal: Abdomen is soft and nondistended with positive bowel sounds. Nontender Skin: Warm and dry. Extremities: No cyanosis, clubbing, or edema. Radial and pedal pulses intact. Neurological: Alert. She did not answer orientation questions. Cranial nerves 2-12 are grossly intact. Generalized weakness without gross focal findings. Psychiatric: Pleasantly confused and cooperative. Objective Data Vital Signs Vital Signs: Vital Signs - 24 hr 07/14/24 19:15 07/14/24 19:50 07/14/24 21:19 Temperature 97.6 F Pulse Rate 87 85 85 Respiratory Rate 15 19 15 Blood Pressure 94/56 L 106/94 H 124/68 Pulse Oximetry 94 93 Oxygen Delivery Room Air Oxygen Flow Rate Fraction of Inspired Oxygen 07/14/24 22:22 07/15/24 00:33 07/15/24 06:00 Temperature 93.7 F L Pulse Rate 80 64 92 Respiratory Rate 19 16 16 Blood Pressure 107/85 123/66 Pulse Oximetry 95 95 92 Oxygen Delivery Oxygen Flow Rate Fraction of Inspired Oxygen 07/15/24 09:36 07/15/24 09:36 07/15/24 11:18 Temperature Pulse Rate 90 90 Respiratory Rate 22 H Blood Pressure Pulse Oximetry 91 Oxygen Delivery Nasal Cannula Oxygen Flow Rate 2 Fraction of Inspired Oxygen 28 Intake/Output Intake/Output: Intake & Output 07/12/24 07/13/24 07/14/24 07/15/24 23:59 23:59 23:59 23:59 Intake Total 2049 580 Output Total 30 Balance 2049 550 Meds/Results Medications: Active Medications Generic Name Dose Route Start Last Admin Trade Name Freq PRN Reason Stop Dose Admin Acetaminophen 650 mg 07/14/24 21:30 Acetaminophen 325 Mg Tablet PO Q4H PRN Mild Pain (1-3) or Fever Amiodarone HCl 200 mg 07/15/24 08:00 07/15/24 11:18 Amiodarone Hcl 200 Mg Tablet PO 200 mg DAILY@0800 JOSEPH Administration Bisacodyl 10 mg 07/14/24 23:58 Bisacodyl 10 Mg Suppository RECTAL DAILY PRN constipation Bupropion HCl 100 mg 07/15/24 09:00 07/15/24 11:18 Bupropion Hcl 100 Mg Tablet PO 100 mg DAILY JOSEPH Administration Diclofenac Sodium 1 applic 07/15/24 09:00 07/15/24 11:20 Diclofenac Sodium 1% 100 Gm Gel (*Bkc) TOPICAL 1 applic TID JOSEPH Administration Docusate Sodium 100 mg 07/14/24 23:58 Docusate Sodium 100 Mg Capsule PO DAILY PRN constipation Doxycycline Hyclate 100 mg 07/14/24 23:55 07/15/24 11:18 Doxycycline Hyclate 100 Mg Tablet PO 100 mg Q12HR JOSEPH Administration Folic Acid 1 mg 03/21/25 09:00 07/15/24 11:19 Folic Acid 1 Mg Tablet PO 1 mg DAILY JOSEPH Administration Ceftriaxone Sodium 1 gm in 50 mls @ 100 mls/hr 07/15/24 21:00 Rocephin 1 Gm/Ns 50 Ml IVPB Q24H JOSEPH Sodium Chloride 1,000 mls @ 75 mls/hr 07/15/24 04:05 07/15/24 04:19 Normal Saline Iv IV CONT 07/15/24 17:24 75 mls/hr .[id number] ONE Administration Lactobacillus Acidophilus 1 tablet 07/15/24 09:00 07/15/24 11:18 Acidophilus/Bulgaricus Chewable Tablet BY MOUTH 1 tablet BID JOSEPH Administration Levothyroxine Sodium 75 mcg 07/15/24 06:30 07/15/24 06:41 Levothyroxine Sodium 75 Mcg Tablet PO 75 mcg DAILY@0630 JOSEPH Administration Melatonin 3 mg 07/15/24 00:15 07/15/24 01:11 Melatonin 3 Mg Tablet PO Not Given QHS JOSEPH Midodrine 2.5 mg 07/15/24 09:00 07/15/24 11:22 Midodrine Hcl 2.5 Mg Tablet PO 2.5 mg 0900,1600 JOSEPH Administration Multivitamins/Minerals 1 tablet 07/15/24 09:00 07/15/24 11:18 Opti-Gen Tab PO 1 tablet QAM JOSEPH Administration Ondansetron HCl 4 mg 07/14/24 21:30 Ondansetron Inj 4 Mg/2 Ml Vial IV PUSH Q4H PRN Nausea Pantoprazole Sodium 20 mg 07/15/24 00:15 07/15/24 01:11 Pantoprazole Sod Sesquihydrate 20 Mg Tab PO 20 mg QHS JOSEPH Administration Potassium Chloride 10 meq 07/15/24 08:00 07/15/24 11:18 Potassium Chloride 10 Meq Er Tablet PO 10 meq DAILY@0800 JOSEPH Administration Fluticasone/Salmeterol 2 puff 07/15/24 08:00 07/15/24 09:36 Fluticasone/Salmeterol 230-21 Mcg Inhaler 1 Puff INHALATION 2 puff Q12HRT JOSEPH Administration Sertraline HCl 100 mg 07/15/24 09:00 07/15/24 11:19 Sertraline Hcl 50 Mg Tablet PO 100 mg DAILY JOSEPH Administration Vitamin D 1,000 units 07/15/24 09:00 07/15/24 11:19 Cholecalciferol 1,000 Units Tablet PO 1,000 units DAILY JOSEPH Administration Radiology Results: ITS Impressions Abdomen/Pelvis CT 07/14/24 20:51 IMPRESSION: Periportal edema with patchy infiltration of the bilateral lung bases. Fecal impaction. Small fat-containing right inguinal hernia. Labs Labs: Laboratory Results - last 24 hr 07/14/24 07/15/24 07/15/24 19:40 00:12 00:22 WBC 10.9 H RBC 4.45 Hgb 13.3 D Hct 42.5 MCV 95.5 MCH 29.9 MCHC 31.3 L RDW 15.0 H Plt Count 157 MPV 12.2 H Immature Gran % (Auto) Not Reportable Neut % (Auto) Not Reportable Lymph % (Auto) Not Reportable [place] % (Auto) Not Reportable Eos % (Auto) Not Reportable Baso % (Auto) Not Reportable Lymph # (Auto) Not Reportable [place] # (Auto) Not Reportable Eos # (Auto) Not Reportable Baso # (Auto) Not Reportable Abs Immat Gran (auto) Not Reportable Absolute Neuts (auto) Not Reportable Absolute Nucleated RBC Not Reportable Total Counted 100 Neutrophils % (Manual) 73 Band Neutrophils % 15 H Lymphocytes % (Manual) 5 L Monocytes % (Manual) 7 Nucleated RBC % Not Reportable Abs Neuts (Manual) 9.59 H Abs Lymphs (Manual) 0.54 L Abs Monocytes (Manual) 0.76 Smudge Cells Few Platelet Estimate Adequate Schistocytes None seen Sodium 143 144 Potassium 4.4 3.9 Chloride 107 113 H Carbon Dioxide 23 21 L Anion Gap 13 H 10 BUN 63 H D 60 H Creatinine 2.07 H 1.89 H Estim Creat Clear Calc 16 17 Estimated GFR 23 L 25 L Glucose 144 H 101 Lactic Acid 3.5 H 2.8 H Calcium 10.2 9.2 Magnesium 1.6 Total Bilirubin 1.0 AST 240 H ALT 122 H Alkaline Phosphatase 152 H Total Creatine Kinase 111 Total Protein 7.0 Albumin 3.5 Lipase 45 TSH (Reflex) 3.680 Urine Color Dark yellow Urine Appearance Turbid H Urine pH 7.5 Ur Specific [place] 1.017 Urine Protein 3+ H Urine Glucose (UA) Negative Urine Ketones Negative Ur Blood (Man) 2+ H Urine Nitrate Negative Urine Bilirubin 1+ H Urine Urobilinogen 0.2 Leukocyte Esterase Rfl 3+ H Urine RBC 21-50 H Urine WBC >100 Ur Squamous Epith Cells Few Urine Bacteria 4+ H Urine Mucus Present 07/15/24 06:07 WBC 10.4 H RBC 3.59 L Hgb 10.7 L Hct 34.4 L MCV 95.8 MCH 29.8 MCHC 31.1 L RDW 14.9 H Plt Count 121 L MPV 12.0 H Immature Gran % (Auto) Neut % (Auto) Lymph % (Auto) [place] % (Auto) Eos % (Auto) Baso % (Auto) Lymph # (Auto) [place] # (Auto) Eos # (Auto) Baso # (Auto) Abs Immat Gran (auto) Absolute Neuts (auto) Absolute Nucleated RBC Total Counted Neutrophils % (Manual) Band Neutrophils % Lymphocytes % (Manual) Monocytes % (Manual) Nucleated RBC % Abs Neuts (Manual) Abs Lymphs (Manual) Abs Monocytes (Manual) Smudge Cells Platelet Estimate Schistocytes Sodium 146 H Potassium 3.9 Chloride 117 H Carbon Dioxide 19 L Anion Gap 10 BUN 60 H Creatinine 1.93 H Estim Creat Clear Calc 17 Estimated GFR 25 L Glucose 94 Lactic Acid Calcium 9.1 Magnesium 1.5 L Total Bilirubin 0.6 AST 157 H ALT 83 H Alkaline Phosphatase 124 Total Creatine Kinase Total Protein 5.0 L Albumin 2.5 L Lipase TSH (Reflex) Urine Color Urine Appearance Urine pH Ur Specific [place] Urine Protein Urine Glucose (UA) Urine Ketones Ur Blood (Man) Urine Nitrate Urine Bilirubin Urine Urobilinogen Leukocyte Esterase Rfl Urine RBC Urine WBC Ur Squamous Epith Cells Urine Bacteria Urine Mucus
[2024-07-15 16:06] LABS: Lactic Acid Reflex 1.8 mmol/L (0.7-2.0)
[2024-07-15] MEDS: MAGNESIUM SULF 1 GM/D5W 100 ML 1 GM/100 ML BAG IVPB (17:18)
[2024-07-15] MEDS: VANCOMYCIN 1,000 MG/NS 250 ML 1,000 MG/250 ML BAG 250 MG IVPB (18:30)
[2024-07-15 19:20] LABS: MRSA (PCR) NOT DETECTED (NOT DETECTE)
[2024-07-15 21:36] VITALS: O2SAT 95
[2024-07-15 22:00] VITALS: BP 151/101; PULSE 91; RESP 18; TEMP 35.9; O2SAT 95
[2024-07-15] MEDS: MELATONIN 3 MG TABLET PO (22:00)
[2024-07-15] MEDS: ACETAMINOPHEN 325 MG TABLET 650 MG PO (22:03)
--- NOTE | 2024-07-16 | ECHO_ITS ---
Patient Info Name: Vi Palmer Age: 84 years : 1940 Gender: Female Ht: 65 in Wt: 120 lbs BSA: 1.58 m2 HR: 86 bpm BP: 143 / 67 mmHg Technical Quality: Fair Exam Date: 07/16/2024 12:52 PM Exam Location: Echo Lab Patient Status: Inpatient Admit Date: 07/15/2024 Staff Ordering Physician: Jamin Rust MD Transit Manager: Bridgette Levin RDCS Attending Provider: Ann Marie Anderson MD Exam Type: CA echo doppler color flow Study Info Indications - Heart failure Complete two-dimensional, color flow and Doppler transthoracic echocardiogram is performed. Summary 1. Left ventricular chamber dimension is normal. 2. Left ventricular systolic function is severely reduced, estimated at 20-25%. There is severe hypokinesis of the mid to distal LV with preserved wall motion of the basal segments. This regional wall motion pattern is suggestive of Takotsubo cardiomyopathy. 3. There is mildly increased left ventricular wall thickness. 4. The left ventricular diastolic function is grade III diastolic dysfunction. 5. Right ventricular systolic function is normal. 6. Left atrial chamber dimension is moderately enlarged. 7. S/p TAVR. Bioprosthetic valve appears well seated. Mean gradient of 4mmHg, peak velocity of 1.14 m/s. 8. There is no aortic valve regurgitation. 9. There is mild mitral valve regurgitation. 10. There is mild tricuspid valve regurgitation. 11. Normal inferior vena cava with >50% collapse upon inspiration consistent with normal right atrial pressure, 3 mmHg. 12. There is trivial anterior pericardial effusion. Left Ventricle Left ventricular chamber dimension is normal. Left ventricular systolic function is severely reduced, estimated at 20-25%. There is severe hypokinesis of the mid to distal LV with preserved wall motion of the basal segments. This regional wall motion pattern is suggestive of Takotsubo cardiomyopathy. There is mildly increased left ventricular wall thickness. The left ventricular diastolic function is grade III diastolic dysfunction. Right Ventricle Right ventricular chamber dimension is normal. Right ventricular systolic function is normal. Left Atria Left atrial chamber dimension is moderately enlarged. Right Atria Right atrial chamber dimension is mildly enlarged. Atrial Septum Intact interatrial septum visualized by color flow imaging. Aortic Valve S/p TAVR. Bioprosthetic valve appears well seated. Mean gradient of 4mmHg, peak velocity of 1.14 m/s. There is no aortic valve regurgitation. Pulmonic Valve The pulmonic valve is not well visualized. There is no pulmonic regurgitation. Mitral Valve The mitral valve has thickened leaflets. There is mild mitral valve regurgitation. Tricuspid Valve There is mild tricuspid valve regurgitation. Pericardium/Pleural There is trivial anterior pericardial effusion. Inferior Vena Cava Normal inferior vena cava with >50% collapse upon inspiration consistent with normal right atrial pressure, 3 mmHg. Aorta The aortic root size at the sinus of Valsalva is normal. Left Ventricular Outflow Tract Name Value Normal LVOT 2D LVOT Diameter 2.3 cm LVOT Doppler LVOT Peak Gradient 3 mmHg LVOT Mean Gradient 2 mmHg LVOT VTI 16 cm LVOT VTI/AV VTI Ratio 0.8 LVOT Stroke Volume 71 ml LVOT CO 6.8 l/min LVOT CI 4.3 l/min/m2 Pulmonic Valve Name Value Normal RVOT Doppler RVOT Peak Gradient 1 mmHg PV Doppler PV Peak Gradient 1 mmHg Mitral Valve Name Value Normal MV Doppler MV Decel [place] 677 cm/s2 MV PHT 41 ms MV Area (PHT) 5.4 cm2 4.0-5.0 MV Diastolic Function MV E Peak Velocity 95 cm/s MV A Peak Velocity 33 cm/s MV E/A 2.9 MV Decel Time 141 ms MV Annular TDI MV E/e' (Lateral) 26.9 <=8.0 Tricuspid Valve Name Value Normal TV Regurgitation Doppler TR Peak Velocity 291 cm/s TR Peak Gradient 31 mmHg Estimated PAP/RSVP RA Pressure 3 mmHg <=5 PA Systolic Pressure 37 mmHg <36 RV Systolic Pressure 37 mmHg <36 Aortic Valve Name Value Normal AV Doppler AV Peak Velocity 114 cm/s AV Peak Gradient 5 mmHg AV Mean Gradient 3 mmHg AV VTI 21 cm AV Area (Cont Eq VTI) 3.5 cm2 >=3.0 AV Area (Cont Eq Estiven) 3.5 cm2 AV Regurgitation 2D LVOT Area 4.3 cm2 Ventricles Name Value Normal LV Dimensions 2D/MM IVS Diastolic Thickness (2D) 1.0 cm 0.6-1.0 LVID Diastole (2D) 3.6 cm 3.8-5.2 LVIW Diastolic Thickness (2D) 1.0 cm 0.6-0.9 LVID Systole (2D) 2.2 cm 2.2-3.5 LVOT Diameter 2.3 cm LV Mass (2D Cubed) 104.80 g 67.00-162.00 LV Mass Index (2D Cubed) 66 g/m2 43-95 Relative Wall Thickness (2D) 0.54 LV Fractional Shortening/Ejection Fraction 2D/MM LV Fractional Shortening (2D) 37 % 27-45 LV EF (2D [place]) 68 % 54-74 LV Diastolic Volume (4C MOD) 133 ml LV EF (4C MOD) 55 % LV Diastolic Volume (2C MOD) 126 ml LV EF (2C MOD) 45 % LV Diastolic Volume (BP MOD) 131 ml 46-106 LV Diastolic Volume Index (BP MOD) 83 ml/m2 29-61 LV Systolic Volume (BP MOD) 65 ml 14-42 LV Systolic Volume Index (BP MOD) 41 ml/m2 8-24 LV EF (BP MOD) 50 % 54-74 LV Diastolic Length (4C) 8.7 cm LV Systolic Length (4C) 7.4 cm LV Stroke Volume (4C MOD) 73 ml Atria Name Value Normal LA Dimensions LA Volume (4C A-L) 46 ml LA Volume (BP A-L) 64 ml Report Signatures
[2024-07-16 05:37] VITALS: BP 143/67; PULSE 86; RESP 18; TEMP 36.4; O2SAT 95
[2024-07-16] MEDS: LEVOTHYROXINE SODIUM 75 MCG TABLET PO (05:37)
[2024-07-16 07:02] LABS: Hematocrit 36.4 % (37.0-47.0); Hemoglobin 11.2 g/dL (12.0-15.0); Immature Platelet Fraction Pct 10.1 % (0.9-11.2); Mean Corpuscular HGB Conc 30.8 g/dl (32-36); Mean Corpuscular Hemoglobin 29.9 pg (26-34); Mean Corpuscular Volume 97.3 fl (80-100); Mean Platelet Volume 12.4 fl (7.4-10.4); Platelet Count Result 90 k/mm3 (150-375); Red Blood Count 3.74 M/mm3 (4.2-5.4); Red Cell Distribution Width 15.2 % (11.5-14.5); White Blood Count 10.7 K/mm3 (4.5-10.0)
[2024-07-16 07:07] LABS: Alanine Aminotransferase 67 U/L (6-35); Albumin Level 2.5 g/dL (3.5-5.1); Alkaline Phosphatase 110 U/L (38-126); Anion Gap 9 mmol/L (4-12); Aspartate Amino Transferase 109 U/L (14-36); Bilirubin,Total 0.5 mg/dL (0.2-1.3); Blood Urea Nitrogen 62 mg/dL (7-17); Calcium 9.6 mg/dL (8.4-10.2); Carbon Dioxide 19 mmol/L (22-30); Chloride 119 mmol/L (98-107); Estimated CRCL calculation 21 ml/min; Estimated Glomerular Filt Rate 33; Glucose 98 mg/dL (65-110); Magnesium 1.9 mg/dL (1.6-2.3); Potassium 3.5 mmol/L (3.4-5.0); Sodium 147 mmol/L (137-145)
[2024-07-16 08:00] LABS: Band Neutrophils Percent 17 % (0-6); Lymphocytes Absolute Manual 0.42 K/mm3 (1.1-4.5); Lymphocytes Percent Manual 4 % (18-44); Monocytes Absolute Manual 0.42 K/mm3 (0.1-0.90); Monocytes Percent Manual 4 % (3-9); Neutrophils Absolute Manual 9.84 K/mm3 (1.7-7.2); Neutrophils Percent Manual 75 % (46-73); Platelet Estimate Decreased (Adequate); Schistocytes None Seen
[2024-07-16] MEDS: FLUTICASONE/SALMETEROL 230-21 MCG INHALER 1 PUFF 2 PUFF INHALATION ×2 (08:48→20:44)
[2024-07-16 08:50] VITALS: PULSE 93; RESP 20; O2SAT 94
[2024-07-16 08:54] LABS: Free T4 Free Thyroxine Reflex 2.35 ng/dL (0.78-2.19)
--- NOTE | 2024-07-16 13:09 | P.PNIM_ITS ---
Progress Note: A&P Assessment and Plan (1) Sepsis: Code(s): A41.9 - Sepsis, unspecified organism Status: Acute (2) Urinary tract infection: Code(s): N39.0 - Urinary tract infection, site not specified Status: Acute (3) Lung consolidation: Code(s): J18.1 - Lobar pneumonia, unspecified organism Status: Acute (4) Syncope: Code(s): R55 - Syncope and collapse Status: Acute (5) Acute on chronic kidney failure: Code(s): N17.9 - Acute kidney failure, unspecified; N18.9 - Chronic kidney disease, unspecified Status: Acute (6) Transaminitis: Code(s): R74.01 - Elevation of levels of liver transaminase levels Status: Acute (7) Heart failure with reduced ejection fraction: Code(s): I50.20 - Unspecified systolic (congestive) heart failure Status: Acute (8) Hypothyroidism: Code(s): E03.9 - Hypothyroidism, unspecified Status: Acute (9) Dementia: Code(s): F03.90 - Unspecified dementia, unspecified severity, without behavioral disturbance, psychotic disturbance, mood disturbance, and anxiety Status: Acute Plan This is an 84-year-old female with history of dementia, heart failure with reduced ejection fraction, severe aortic stenosis status post TAVR, coronary artery disease, right atrial myxoma, hypertension, hyperlipidemia, depression, and anxiety who presented to the emergency department via EMS for evaluation after syncopal episode. She has been having problems with orthostatic hypotension and recently had her tamsulosin, donepezil, and memantine. She is not eating much and has been losing weight. Today she reportedly had a brief syncopal episode while transferring. Staff at her memory care facility also mention that she has had pus in her urine for about a week. She also reported or abdominal discomfort. She also endorses mild dysuria. No chest pain. She has also been noted to be coughing frequently. In the ED: She was afebrile on arrival with a blood pressure was 94/56. CT of the abdomen and pelvis showed fecal impaction and a small fat containing right inguinal hernia. Visualized portions of the lower lung showed patchy bibasilar opacification with right basilar consolidation. Labs were significant for WBC count of 10.9 with 15% bands, BUN 63, creatinine 2.07, lactic acid 3.5, AST 240, ALT 122, alkaline phosphatase 152. She was given 2 L normal saline bolus with improvement her blood pressures. She was also started on ceftriaxone for urinary tract infection and she is being admitted in this setting for further treatment. She also had decubitus ulcer developed in her coccyx She meets sepsis criteria on arrival with hypotension, leukocytosis with bandemia, acute on chronic kidney injury, and lactic acidosis in the setting of infection. Source of infection appears to be her urine however CT scan shows some consolidation at the right base as well. She has been started on ceftriaxone and doxycycline. Possible aspiration and will have swallow study performed. She will be kept NPO Pancultured. Follow cultures Borderline blood pressure improved with IV hydration. Patient also on midodrine at home. Elevated LFTs CECIL on CKD stage 3 baseline creatinine low 1s. Admission creatinine 2. Continue IV hydration Decubitus ulcer wound care consult Pneumonia ceftriaxone and doxycycline Bacteremia with Gram-positive cocci in clusters. Added vancomycin await identification Thrombocytopenia likely due to sepsis and bacteremia Historyof orthostatic hypotension history of heart failure with reduced ejection fraction recheck echo Dementia History of anemia likely hemoconcentrated on admission. 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 DNR DVT prophylaxis SCDs Subjective Date/time seen: 07/16/24 13:09 Interval history: No overnight events. Patient been unable to swallow. Mumbles. Review of system could not be completed Review of Systems Review of Systems: ROS unobtainable: Yes unobtainable due to mental status Exam Narrative: General: Thin, frail elderly female supine in bed. HEENT: Normocephalic, atraumatic. PERRL, EOMI. Sclera anicteric. Dry mucous membranes. Neck: Supple. No JVD. Respiratory: Respirations are nonlabored. Lung sounds are diminished due to poor effort. Occasional cough oral Cardiovascular: Regular rate and rhythm with S1-S2. Systolic murmur at the upper sternal border and left lower sternal border. Gastrointestinal: Abdomen is soft and nondistended with positive bowel sounds. Nontender Skin: Warm and dry. Extremities: No cyanosis, clubbing, or edema. Radial and pedal pulses intact. Neurological: Alert. Mumbles. Cranial nerves 2-12 are grossly intact. Generalized weakness without gross focal findings. Psychiatric: Pleasantly confused and cooperative. Objective Data Vital Signs Vital Signs: Vital Signs - 24 hr 07/15/24 21:36 07/15/24 22:00 07/16/24 05:37 Temperature 96.7 F L 97.6 F Pulse Rate 91 86 Respiratory Rate 18 18 Blood Pressure 151/101 H 143/67 H Pulse Oximetry 95 95 95 Oxygen Delivery Nasal Cannula Oxygen Flow Rate 2 07/16/24 08:50 07/16/24 08:50 Temperature Pulse Rate 93 Respiratory Rate 20 Blood Pressure Pulse Oximetry 94 Oxygen Delivery Nasal Cannula Oxygen Flow Rate 2 Intake/Output Intake/Output: Intake & Output 07/13/24 07/14/24 07/15/24 07/16/24 23:59 23:59 23:59 23:59 Intake Total 2049 970 0 Output Total 30 Balance 2049 940 0 Meds/Results Medications: Active Medications Generic Name Dose Route Start Last Admin Trade Name Freq PRN Reason Stop Dose Admin Acetaminophen 650 mg 07/14/24 21:30 07/15/24 22:03 Acetaminophen 325 Mg Tablet PO 650 mg Q4H PRN Administration Mild Pain (1-3) or Fever Amiodarone HCl 200 mg 07/15/24 08:00 07/16/24 08:00 Amiodarone Hcl 200 Mg Tablet PO Not Given DAILY@0800 [facility] Bisacodyl 10 mg 07/14/24 23:58 Bisacodyl 10 Mg Suppository RECTAL DAILY PRN constipation Bupropion HCl 100 mg 07/15/24 09:00 07/16/24 09:00 Bupropion Hcl 100 Mg Tablet PO Not Given DAILY [facility] Diclofenac Sodium 1 applic 07/15/24 09:00 07/16/24 09:00 Diclofenac Sodium 1% 100 Gm Gel (*Bkc) TOPICAL Not Given TID [facility] Docusate Sodium 100 mg 07/14/24 23:58 Docusate Sodium 100 Mg Capsule PO DAILY PRN constipation Doxycycline Hyclate 100 mg 07/14/24 23:55 07/16/24 09:00 Doxycycline Hyclate 100 Mg Tablet PO Not Given Q12HR [facility] Folic Acid 1 mg 07/15/24 09:00 07/16/24 09:00 Folic Acid 1 Mg Tablet PO Not Given DAILY [facility] Ceftriaxone Sodium 1 gm in 50 mls @ 100 mls/hr 07/15/24 21:00 07/15/24 22:29 Rocephin 1 Gm/Ns 50 Ml IVPB Infused Q24H [facility] Infusion Lactobacillus Acidophilus 1 tablet 07/15/24 09:00 07/16/24 09:00 Acidophilus/Bulgaricus Chewable Tablet BY MOUTH Not Given BID [facility] Levothyroxine Sodium 75 mcg 07/15/24 06:30 07/16/24 05:37 Levothyroxine Sodium 75 Mcg Tablet PO 75 mcg DAILY@0630 [facility] Administration Melatonin 3 mg 07/15/24 00:15 07/15/24 22:00 Melatonin 3 Mg Tablet PO 3 mg QHS [facility] Administration Midodrine 2.5 mg 07/15/24 09:00 07/16/24 09:00 Midodrine Hcl 2.5 Mg Tablet PO Not Given 0900,1600 [facility] Morphine Sulfate 1 mg 07/16/24 09:01 Morphine Sulfate (*Crx) 2 Mg/Ml Inj IV PUSH Q4H PRN severe pain Multivitamins/Minerals 1 tablet 07/15/24 09:00 07/16/24 09:00 Opti-Gen Tab PO Not Given QAM [facility] Ondansetron HCl 4 mg 07/14/24 21:30 Ondansetron Inj 4 Mg/2 Ml Vial IV PUSH Q4H PRN Nausea Pantoprazole Sodium 20 mg 07/15/24 00:15 07/15/24 22:00 Pantoprazole Sod Sesquihydrate 20 Mg Tab PO 20 mg QHS [facility] Administration Perflutren Lipid Microsphere 0 ml 07/15/24 14:24 Perflutren Lipid Microspheres 1.5 Ml Vial Diluted To 10 Ml Total Volume IV PUSH 07/18/24 14:24 ONCE PRN adequate visualization Protocol Potassium Chloride 10 meq 07/15/24 08:00 07/16/24 08:00 Potassium Chloride 10 Meq Er Tablet PO Not Given DAILY@0800 [facility] Fluticasone/Salmeterol 2 puff 07/15/24 08:00 07/16/24 08:48 Fluticasone/Salmeterol 230-21 Mcg Inhaler 1 Puff INHALATION 2 puff Q12HRT [facility] Administration Sertraline HCl 100 mg 07/15/24 09:00 07/16/24 09:00 Sertraline Hcl 50 Mg Tablet PO Not Given DAILY [facility] Vancomycin HCl 1 each 07/15/24 17:19 Vancomycin For Acute Kidney Injury IVPB PRN PRN Vancomycin Protocol Vitamin D 1,000 units 07/15/24 09:00 07/16/24 09:00 Cholecalciferol 1,000 Units Tablet PO Not Given DAILY [facility] Radiology Results: ITS Impressions Abdomen/Pelvis CT 07/14/24 20:51 IMPRESSION: Periportal edema with patchy infiltration of the bilateral lung bases. Fecal impaction. Small fat-containing right inguinal hernia. Chest X-Ray 07/15/24 14:55 Impression: 1: Patchy bilateral airspace disease, compatible with pneumonia. Labs Labs: Laboratory Results - last 24 hr 07/15/24 07/15/24 07/16/24 15:50 18:02 06:29 WBC 10.7 H RBC 3.74 L Hgb 11.2 L Hct 36.4 L MCV 97.3 MCH 29.9 MCHC 30.8 L RDW 15.2 H Plt Count 90 L MPV 12.4 H Immature Gran % (Auto) Not Reportable Neut % (Auto) Not Reportable Lymph % (Auto) Not Reportable [place] % (Auto) Not Reportable Eos % (Auto) Not Reportable Baso % (Auto) Not Reportable Lymph # (Auto) Not Reportable [place] # (Auto) Not Reportable Eos # (Auto) Not Reportable Baso # (Auto) Not Reportable Abs Immat Gran (auto) Not Reportable Absolute Neuts (auto) Not Reportable Absolute Nucleated RBC Not Reportable Neutrophils % (Manual) 75 H Band Neutrophils % 17 H Lymphocytes % (Manual) 4 L Monocytes % (Manual) 4 Nucleated RBC % Not Reportable Abs Neuts (Manual) 9.84 H Abs Lymphs (Manual) 0.42 L Abs Monocytes (Manual) 0.42 Platelet Estimate Decreased % Immature Plt Fraction 10.1 Schistocytes None seen Sodium 147 H Potassium 3.5 Chloride 119 H Carbon Dioxide 19 L Anion Gap 9 BUN 62 H Creatinine 1.49 H Estim Creat Clear Calc 21 Estimated GFR 33 L Glucose 98 Lactic Acid 1.8 Calcium 9.6 Magnesium 1.9 Total Bilirubin 0.5 AST 109 H ALT 67 H Alkaline Phosphatase 110 Total Protein 5.0 L Albumin 2.5 L TSH (Reflex) 4.190 Free T4 2.35 H Nasal MRSA (PCR) Not detected
[2024-07-16 14:00] VITALS: BP 104/79; PULSE 107; RESP 20; TEMP 36.2; O2SAT 95
[2024-07-16] MEDS: MORPHINE SULFATE (*CRX) 2 MG/ML INJ 1 MG IV PUSH ×2 (17:12→22:02)
[2024-07-16] MEDS: DEXTROSE 5%/0.45% SOD CHL 1,000 ML 50 ML IV CONT (17:13)
[2024-07-16 17:30] LABS: Vancomycin Random 7.7 ug/mL (10-20)
[2024-07-16 20:44] VITALS: PULSE 107; PULSE 76; RESP 20; O2SAT 95
[2024-07-16 21:16] VITALS: BP 156/82; PULSE 102; RESP 18; TEMP 36.8; O2SAT 96
[2024-07-16] MEDS: VANCOMYCIN 500 MG/NS 100 ML 500 MG/100 ML BAG 100 MG IVPB (22:02)
[2024-07-17] MEDS: MORPHINE SULFATE (*CRX) 2 MG/ML INJ 1 MG IV PUSH ×3 (02:41→18:28)
[2024-07-17 05:22] VITALS: BP 149/79; PULSE 99; RESP 18; TEMP 36.8; O2SAT 94
[2024-07-17 06:34] LABS: Basophils Percent Auto 0.4 % (0.2-1.2); Hematocrit 37.8 % (37.0-47.0); Hemoglobin 11.8 g/dL (12.0-15.0); Immature Platelet Fraction Pct 9.4 % (0.9-11.2); Lymphocytes Percent Auto 6.1 % (18.3-44.2); Mean Corpuscular HGB Conc 31.2 g/dl (32-36); Mean Corpuscular Hemoglobin 30.2 pg (26-34); Mean Corpuscular Volume 96.7 fl (80-100); Mean Platelet Volume 13.2 fl (7.4-10.4); Monocytes Absolute Auto 0.8 K/mm3 (0.1-0.6); Monocytes Percent Auto 8.1 % (2.6-8.5); Neutrophils Absolute Auto 8.3 K/mm3 (1.3-6.7); Neutrophils Percent Auto 84.4 % (45.5-73.1); Platelet Count Result 71 k/mm3 (150-375); Red Blood Count 3.91 M/mm3 (4.2-5.4); Red Cell Distribution Width 15.5 % (11.5-14.5); White Blood Count 9.8 K/mm3 (4.5-10.0)
[2024-07-17 06:44] LABS: Alanine Aminotransferase 50 U/L (6-35); Albumin Level 2.5 g/dL (3.5-5.1); Alkaline Phosphatase 97 U/L (38-126); Anion Gap 7 mmol/L (4-12); Aspartate Amino Transferase 77 U/L (14-36); Bilirubin,Total 0.6 mg/dL (0.2-1.3); Blood Urea Nitrogen 54 mg/dL (7-17); Calcium 9.4 mg/dL (8.4-10.2); Carbon Dioxide 20 mmol/L (22-30); Chloride 123 mmol/L (98-107); Estimated CRCL calculation 26 ml/min; Estimated Glomerular Filt Rate 43; Glucose 131 mg/dL (65-110); Magnesium 1.9 mg/dL (1.6-2.3); Potassium 3.3 mmol/L (3.4-5.0); Sodium 150 mmol/L (137-145)
[2024-07-17 08:05] VITALS: O2SAT 93
[2024-07-17] MEDS: KCL 20 MEQ/D5W 1,000 ML 1,000 ML 50 ML IV CONT (12:28)
--- NOTE | 2024-07-17 12:28 | PCSTNOTE ---
Please refer to the Bedside Swallow Evaluation in the EMR. Please note, silent aspiration cannot be ruled out at bedside.
[2024-07-17] MEDS: DOXYCYCLINE 100 MG/NS 100 ML 100 MG/100 ML BAG 75 MG IVPB (12:30)
--- NOTE | 2024-07-17 12:44 | PM.IMPN ---
Progress Note: A&P Assessment and Plan (1) Sepsis: Code(s): A41.9 - Sepsis, unspecified organism Status: Acute (2) Urinary tract infection: Code(s): N39.0 - Urinary tract infection, site not specified Status: Acute (3) Lung consolidation: Code(s): J18.1 - Lobar pneumonia, unspecified organism Status: Acute (4) Syncope: Code(s): R55 - Syncope and collapse Status: Acute (5) Acute on chronic kidney failure: Code(s): N17.9 - Acute kidney failure, unspecified; N18.9 - Chronic kidney disease, unspecified Status: Acute (6) Transaminitis: Code(s): R74.01 - Elevation of levels of liver transaminase levels Status: Acute (7) Heart failure with reduced ejection fraction: Code(s): I50.20 - Unspecified systolic (congestive) heart failure Status: Acute (8) Hypothyroidism: Code(s): E03.9 - Hypothyroidism, unspecified Status: Acute (9) Dementia: Code(s): F03.90 - Unspecified dementia, unspecified severity, without behavioral disturbance, psychotic disturbance, mood disturbance, and anxiety Status: Acute Plan This is an 84-year-old female with history of dementia, heart failure with reduced ejection fraction, severe aortic stenosis status post TAVR, coronary artery disease, right atrial myxoma, hypertension, hyperlipidemia, depression, and anxiety who presented to the emergency department via EMS for evaluation after syncopal episode. She has been having problems with orthostatic hypotension and recently had her tamsulosin, donepezil, and memantine. She is not eating much and has been losing weight. Today she reportedly had a brief syncopal episode while transferring. Staff at her memory care facility also mention that she has had pus in her urine for about a week. She also reported or abdominal discomfort. She also endorses mild dysuria. No chest pain. She has also been noted to be coughing frequently. In the ED: She was afebrile on arrival with a blood pressure was 94/56. CT of the abdomen and pelvis showed fecal impaction and a small fat containing right inguinal hernia. Visualized portions of the lower lung showed patchy bibasilar opacification with right basilar consolidation. Labs were significant for WBC count of 10.9 with 15% bands, BUN 63, creatinine 2.07, lactic acid 3.5, AST 240, ALT 122, alkaline phosphatase 152. She was given 2 L normal saline bolus with improvement her blood pressures. She was also started on ceftriaxone for urinary tract infection and she is being admitted in this setting for further treatment. She also had decubitus ulcer developed in her coccyx She meets sepsis criteria on arrival with hypotension, leukocytosis with bandemia, acute on chronic kidney injury, and lactic acidosis in the setting of infection. Source of infection appears to be her urine however CT scan shows some consolidation at the right base as well. She has been started on ceftriaxone and doxycycline. Possible aspiration and will have swallow study performed. She will be kept NPO. MBS planned in a.m.. Pancultured. Follow cultures Borderline blood pressure improved with IV hydration. Patient also on midodrine at home. Elevated LFTs stable CECIL on CKD stage 3 baseline creatinine low 1s. Admission creatinine 2. Continue IV hydration continues to improve. Decubitus ulcer wound care consult Hypernatremia: Switch fluid to D5 water Pneumonia ceftriaxone and doxycycline Bacteremia with Gram-positive cocci in clusters. Added vancomycin identified as MSSA. Switched to Ancef Cardiomyopathy noted with EF 20-25% severe hypokinesis of the mid to distal LV with preserved wall motion of the basal segments. 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 Patient currently NPO due to dysphagia for GDMT Thrombocytopenia likely due to sepsis and bacteremia continues to worsen History of orthostatic hypotension history of heart failure with reduced ejection fraction recheck echo Dementia History of anemia likely hemoconcentrated on admission. 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 DNR DVT prophylaxis SCDs Will continue goals of care discussion with the family Subjective Date/time seen: 07/17/24 12:44 Interval history: Patient failed swallow evaluation. Patient remains confused. Remains afebrile. Oxygen requirement stable. Review of Systems Review of Systems: ROS unobtainable: Yes unobtainable due to mental status Exam Narrative: General: Thin, frail elderly female supine in bed. HEENT: Normocephalic, atraumatic. PERRL, EOMI. Sclera anicteric. Dry mucous membranes. Neck: Supple. No JVD. Respiratory: Respirations are nonlabored. Lung sounds are diminished due to poor effort. Occasional cough oral Cardiovascular: Regular rate and rhythm with S1-S2. Systolic murmur at the upper sternal border and left lower sternal border. Gastrointestinal: Abdomen is soft and nondistended with positive bowel sounds. Nontender Skin: Warm and dry. Extremities: No cyanosis, clubbing, or edema. Radial and pedal pulses intact. Neurological: Alert but Mumbles. Cranial nerves 2-12 are grossly intact. Generalized weakness without gross focal findings. Psychiatric: Pleasantly confused and cooperative. Objective Data Vital Signs Vital Signs: Vital Signs - 24 hr 07/16/24 14:00 07/16/24 20:00 07/16/24 20:44 Temperature 97.1 F L Pulse Rate 107 H 107 H Respiratory Rate 20 Blood Pressure 104/79 Pulse Oximetry 95 95 Oxygen Delivery Nasal Cannula Nasal Cannula Oxygen Flow Rate 2 2 07/16/24 20:44 07/16/24 21:16 07/17/24 05:22 Temperature 98.2 F 98.2 F Pulse Rate 76 102 H 99 Respiratory Rate 20 18 18 Blood Pressure 156/82 H 149/79 H Pulse Oximetry 96 94 Oxygen Delivery Oxygen Flow Rate 07/17/24 08:05 Temperature Pulse Rate Respiratory Rate Blood Pressure Pulse Oximetry 93 Oxygen Delivery Nasal Cannula Oxygen Flow Rate 2 Intake/Output Intake/Output: Intake & Output 07/14/24 07/15/24 07/16/24 07/17/24 23:59 23:59 23:59 23:59 Intake Total 0 970 150 Output Total 30 100 Balance 0 940 150 -100 Meds/Results Medications: Active Medications Generic Name Dose Route Start Last Admin Trade Name Freq PRN Reason Stop Dose Admin Acetaminophen 650 mg 07/14/24 21:30 07/15/24 22:03 Acetaminophen 325 Mg Tablet PO 650 mg Q4H PRN Administration Mild Pain (1-3) or Fever Amiodarone HCl 200 mg 07/15/24 08:00 07/17/24 08:30 Amiodarone Hcl 200 Mg Tablet PO Not Given DAILY@0800 [facility] Bisacodyl 10 mg 07/14/24 23:58 Bisacodyl 10 Mg Suppository RECTAL DAILY PRN constipation Bupropion HCl 100 mg 07/15/24 09:00 07/17/24 08:30 Bupropion Hcl 100 Mg Tablet PO Not Given DAILY [facility] Diclofenac Sodium 1 applic 07/15/24 09:00 07/17/24 08:30 Diclofenac Sodium 1% 100 Gm Gel (*Bkc) TOPICAL Not Given TID [facility] Docusate Sodium 100 mg 07/14/24 23:58 Docusate Sodium 100 Mg Capsule PO DAILY PRN constipation Folic Acid 1 mg 07/15/24 09:00 07/17/24 08:30 Folic Acid 1 Mg Tablet PO Not Given DAILY [facility] Potassium Chloride/Dextrose 1,000 mls @ 100 mls/hr 07/17/24 10:00 07/17/24 12:28 Kcl 20 Meq/D5w 1,000 Ml IV CONT 50 mls/hr .Q10H [facility] Administration Cefazolin Sodium 1 gm in 50 mls @ 100 mls/hr 07/17/24 10:00 Ancef 1 Gm/Ns 50 Ml IVPB Q12HR [facility] Doxycycline Hyclate 100 mg in 100 mls @ 100 mls/hr 07/17/24 09:30 07/17/24 12:30 Vibramycin 100 Mg/Ns 100 Ml IVPB 75 mls/hr Q12HR [facility] Administration Lactobacillus Acidophilus 1 tablet 07/15/24 09:00 07/17/24 08:30 Acidophilus/Bulgaricus Chewable Tablet BY MOUTH Not Given BID [facility] Levothyroxine Sodium 75 mcg 07/15/24 06:30 07/17/24 07:11 Levothyroxine Sodium 75 Mcg Tablet PO Not Given DAILY@0630 [facility] Melatonin 3 mg 07/15/24 00:15 07/16/24 21:34 Melatonin 3 Mg Tablet PO Not Given QHS [facility] Midodrine 2.5 mg 07/15/24 09:00 07/17/24 08:30 Midodrine Hcl 2.5 Mg Tablet PO Not Given 0900,1600 [facility] Morphine Sulfate 1 mg 07/16/24 09:01 07/17/24 08:26 Morphine Sulfate (*Crx) 2 Mg/Ml Inj IV PUSH 1 mg Q4H PRN Administration severe pain Multivitamins/Minerals 1 tablet 07/15/24 09:00 07/17/24 08:30 Opti-Gen Tab PO Not Given QAM [facility] Ondansetron HCl 4 mg 07/14/24 21:30 Ondansetron Inj 4 Mg/2 Ml Vial IV PUSH Q4H PRN Nausea Pantoprazole Sodium 20 mg 07/15/24 00:15 07/16/24 21:34 Pantoprazole Sod Sesquihydrate 20 Mg Tab PO Not Given QHS [facility] Perflutren Lipid Microsphere 0 ml 07/15/24 14:24 Perflutren Lipid Microspheres 1.5 Ml Vial Diluted To 10 Ml Total Volume IV PUSH 07/18/24 14:24 ONCE PRN adequate visualization Protocol Potassium Chloride 10 meq 07/15/24 08:00 07/17/24 08:30 Potassium Chloride 10 Meq Er Tablet PO Not Given DAILY@0800 [facility] Fluticasone/Salmeterol 2 puff 07/15/24 08:00 07/17/24 08:04 Fluticasone/Salmeterol 230-21 Mcg Inhaler 1 Puff INHALATION Not Given Q12HRT [facility] Sertraline HCl 100 mg 07/15/24 09:00 07/17/24 08:30 Sertraline Hcl 50 Mg Tablet PO Not Given DAILY [facility] Vitamin D 1,000 units 07/15/24 09:00 07/17/24 08:30 Cholecalciferol 1,000 Units Tablet PO Not Given DAILY [facility] Radiology Results: ITS Impressions Abdomen/Pelvis CT 07/14/24 20:51 IMPRESSION: Periportal edema with patchy infiltration of the bilateral lung bases. Fecal impaction. Small fat-containing right inguinal hernia. Chest X-Ray 07/15/24 14:55 Impression: 1: Patchy bilateral airspace disease, compatible with pneumonia. Labs Labs: Laboratory Results - last 24 hr 07/16/24 07/17/24 16:55 06:06 WBC 9.8 RBC 3.91 L Hgb 11.8 L Hct 37.8 MCV 96.7 MCH 30.2 MCHC 31.2 L RDW 15.5 H Plt Count 71 L MPV 13.2 H Immature Gran % (Auto) 1.0 H Neut % (Auto) 84.4 H Lymph % (Auto) 6.1 L [place] % (Auto) 8.1 Eos % (Auto) 0.0 Baso % (Auto) 0.4 Lymph # (Auto) 0.60 L [place] # (Auto) 0.8 H Eos # (Auto) 0.0 Baso # (Auto) 0.0 Abs Immat Gran (auto) 0.10 H Absolute Neuts (auto) 8.3 H Absolute Nucleated RBC 0.000 Nucleated RBC % 0.0 % Immature Plt Fraction 9.4 Sodium 150 H Potassium 3.3 L Chloride 123 H Carbon Dioxide 20 L Anion Gap 7 BUN 54 H Creatinine 1.18 H Estim Creat Clear Calc 26 Estimated GFR 43 L Glucose 131 H Calcium 9.4 Magnesium 1.9 Total Bilirubin 0.6 AST 77 H ALT 50 H Alkaline Phosphatase 97 Total Protein 5.0 L Albumin 2.5 L Random Vancomycin 7.7 L
[2024-07-17 14:00] VITALS: BP 111/54; PULSE 92; RESP 22; TEMP 37.4; O2SAT 95
[2024-07-17] MEDS: ceFAZolin 1 GM/NS 50 ML 1 GM/50 ML BAG IVPB ×2 (14:35→20:59)
[2024-07-17 15:08] LABS: Anion Gap 9 mmol/L (4-12); Blood Urea Nitrogen 54 mg/dL (7-17); Calcium 9.7 mg/dL (8.4-10.2); Carbon Dioxide 21 mmol/L (22-30); Chloride 121 mmol/L (98-107); Estimated CRCL calculation 27 ml/min; Estimated Glomerular Filt Rate 44; Glucose 134 mg/dL (65-110); Potassium 3.6 mmol/L (3.4-5.0); Sodium 151 mmol/L (137-145)
[2024-07-17 16:39] LABS: Pneumococcal Antigen Urine NOT DETECTED
[2024-07-17 20:00] VITALS: PULSE 100; RESP 18; O2SAT 92
[2024-07-17] MEDS: FLUTICASONE/SALMETEROL 230-21 MCG INHALER 1 PUFF 2 PUFF INHALATION (21:33)
[2024-07-17] MEDS: DOXYCYCLINE 100 MG/NS 100 ML 100 MG/100 ML BAG IVPB (21:44)
[2024-07-17 22:00] VITALS: BP 110/64; PULSE 100; RESP 18; TEMP 36.2; O2SAT 92
[2024-07-18] MEDS: KCL 20 MEQ/D5W 1,000 ML 1,000 ML 50 ML IV CONT (02:37)
[2024-07-18 02:53] LABS: Legionella pneumophila Ag Ur NOT DETECTED
[2024-07-18] MEDS: MORPHINE SULFATE (*CRX) 2 MG/ML INJ 1 MG IV PUSH ×2 (05:40→17:26)
[2024-07-18 06:00] VITALS: BP 127/90; PULSE 101; RESP 18; TEMP 36.6; O2SAT 95
[2024-07-18 06:28] LABS: Basophils Absolute Auto 0.1 K/mm3 (0.0-0.1); Basophils Percent Auto 0.4 % (0.2-1.2); Eosinophils Percent Auto 0.1 % (0-4.4); Hematocrit 38.4 % (37.0-47.0); Hemoglobin 11.4 g/dL (12.0-15.0); Immature Granulocyte Absolute 0.13 K/mm3 (0.00-0.031); Immature Platelet Fraction Pct 11.9 % (0.9-11.2); Lymphocytes Absolute Auto 0.87 K/mm3 (0.9-3.2); Mean Corpuscular HGB Conc 29.7 g/dl (32-36); Mean Corpuscular Hemoglobin 29.8 pg (26-34); Mean Corpuscular Volume 100.5 fl (80-100); Mean Platelet Volume 13.1 fl (7.4-10.4); Monocytes Absolute Auto 0.9 K/mm3 (0.1-0.6); Monocytes Percent Auto 6.9 % (2.6-8.5); Neutrophils Absolute Auto 10.5 K/mm3 (1.3-6.7); Neutrophils Percent Auto 84.6 % (45.5-73.1); Platelet Count Result 41 k/mm3 (150-375); Red Blood Count 3.82 M/mm3 (4.2-5.4); Red Cell Distribution Width 15.7 % (11.5-14.5); White Blood Count 12.4 K/mm3 (4.5-10.0)
[2024-07-18 06:34] LABS: Alanine Aminotransferase 36 U/L (6-35); Albumin Level 2.4 g/dL (3.5-5.1); Alkaline Phosphatase 109 U/L (38-126); Anion Gap 10 mmol/L (4-12); Aspartate Amino Transferase 72 U/L (14-36); Bilirubin,Total 0.6 mg/dL (0.2-1.3); Blood Urea Nitrogen 47 mg/dL (7-17); Calcium 9.6 mg/dL (8.4-10.2); Carbon Dioxide 17 mmol/L (22-30); Chloride 122 mmol/L (98-107); Estimated CRCL calculation 29 ml/min; Estimated Glomerular Filt Rate 50; Glucose 137 mg/dL (65-110); Magnesium 1.8 mg/dL (1.6-2.3); Potassium 3.3 mmol/L (3.4-5.0); Sodium 149 mmol/L (137-145)
[2024-07-18 06:50] LABS: Platelet Estimate Decreased (Adequate)
[2024-07-18 06:51] LABS: Anisocytosis 1+; Burr Cells 2+; Ovalocytes 1+; Schistocytes Rare
[2024-07-18 07:53] VITALS: PULSE 77; RESP 18; O2SAT 95
[2024-07-18] MEDS: FLUTICASONE/SALMETEROL 230-21 MCG INHALER 1 PUFF 2 PUFF INHALATION ×2 (07:53→21:15)
[2024-07-18] MEDS: POTASSIUM CHLORIDE INJ 40 MEQ in DEXTROSE 5% 1,000 ML 1,000 ML 130 MEQ IVPB (10:26)
[2024-07-18] MEDS: ceFAZolin 1 GM/NS 50 ML 1 GM/50 ML BAG IVPB ×2 (10:26→15:24)
[2024-07-18] MEDS: DOXYCYCLINE 100 MG/NS 100 ML 100 MG/100 ML BAG IVPB (10:26)
[2024-07-18] MEDS: DICLOFENAC SODIUM 1% 100 GM GEL (*BKC) 1 APPLIC TOPICAL ×2 (10:27→15:31)
[2024-07-18 14:00] VITALS: BP 108/62; PULSE 100; RESP 18; TEMP 36.6; O2SAT 94
--- NOTE | 2024-07-18 14:33 | PM.IMPN ---
Progress Note: A&P Assessment and Plan (1) Sepsis: Code(s): A41.9 - Sepsis, unspecified organism Status: Acute (2) Urinary tract infection: Code(s): N39.0 - Urinary tract infection, site not specified Status: Acute (3) Lung consolidation: Code(s): J18.1 - Lobar pneumonia, unspecified organism Status: Acute (4) Syncope: Code(s): R55 - Syncope and collapse Status: Acute (5) Acute on chronic kidney failure: Code(s): N17.9 - Acute kidney failure, unspecified; N18.9 - Chronic kidney disease, unspecified Status: Acute (6) Transaminitis: Code(s): R74.01 - Elevation of levels of liver transaminase levels Status: Acute (7) Heart failure with reduced ejection fraction: Code(s): I50.20 - Unspecified systolic (congestive) heart failure Status: Acute (8) Hypothyroidism: Code(s): E03.9 - Hypothyroidism, unspecified Status: Acute (9) Dementia: Code(s): F03.90 - Unspecified dementia, unspecified severity, without behavioral disturbance, psychotic disturbance, mood disturbance, and anxiety Status: Acute Plan This is an 84-year-old female with history of dementia, heart failure with reduced ejection fraction, severe aortic stenosis status post TAVR, coronary artery disease, right atrial myxoma, hypertension, hyperlipidemia, depression, and anxiety who presented to the emergency department via EMS for evaluation after syncopal episode. She has been having problems with orthostatic hypotension and recently had her tamsulosin, donepezil, and memantine. She is not eating much and has been losing weight. Today she reportedly had a brief syncopal episode while transferring. Staff at her memory care facility also mention that she has had pus in her urine for about a week. She also reported or abdominal discomfort. She also endorses mild dysuria. No chest pain. She has also been noted to be coughing frequently. In the ED: She was afebrile on arrival with a blood pressure was 94/56. CT of the abdomen and pelvis showed fecal impaction and a small fat containing right inguinal hernia. Visualized portions of the lower lung showed patchy bibasilar opacification with right basilar consolidation. Labs were significant for WBC count of 10.9 with 15% bands, BUN 63, creatinine 2.07, lactic acid 3.5, AST 240, ALT 122, alkaline phosphatase 152. She was given 2 L normal saline bolus with improvement her blood pressures. She was also started on ceftriaxone for urinary tract infection and she is being admitted in this setting for further treatment. She also had decubitus ulcer developed in her coccyx She meets sepsis criteria on arrival with hypotension, leukocytosis with bandemia, acute on chronic kidney injury, and lactic acidosis in the setting of infection. Source of infection appears to be her urine however CT scan shows some consolidation at the right base as well. She has been started on ceftriaxone and doxycycline. Possible aspiration and will have swallow study performed. She will be kept NPO. MBS planned in a.m. discussed Dobbhoff placement and to start feeding for continued medical treatment. Also discussed hospice care with the family. Pancultured. Follow cultures Borderline blood pressure improved with IV hydration. Patient also on midodrine at home. Blood pressure currently stable Elevated LFTs stable improved CECIL on CKD stage 3 baseline creatinine low 1s. Admission creatinine 2. Continue IV hydration continues to improve. Decubitus ulcer wound care consult Hypernatremia: Switch fluid to D5 water slowly improving Pneumonia ceftriaxone and doxycycline Bacteremia with Gram-positive cocci in clusters. Added vancomycin identified as MSSA. Switched to Ancef. Cardiomyopathy noted with EF 20-25% severe hypokinesis of the mid to distal LV with preserved wall motion of the basal segments. 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 Patient currently NPO due to dysphagia for GDMT Thrombocytopenia likely due to sepsis and bacteremia continues to worsen History of orthostatic hypotension history of heart failure with reduced ejection fraction recheck echo Dementia History of anemia likely hemoconcentrated on admission. 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 DNR DVT prophylaxis SCDs Goals of care discussion with the family at bedside today. Hospice versus continued medical treatment. Family will discuss among themselves and let us know Subjective Date/time seen: 07/18/24 14:33 Interval history: No overnight events. Patient still mumbles and confused. Remains NPO. Review of Systems Review of Systems: ROS unobtainable: Yes unobtainable due to mental status Exam Narrative: General: Thin, frail elderly female supine in bed. HEENT: Normocephalic, atraumatic. PERRL, EOMI. Sclera anicteric. Dry mucous membranes. Neck: Supple. No JVD. Respiratory: Respirations are nonlabored. Lung sounds are diminished due to poor effort. Occasional cough oral Cardiovascular: Regular rate and rhythm with S1-S2. Systolic murmur at the upper sternal border and left lower sternal border. Gastrointestinal: Abdomen is soft and nondistended with positive bowel sounds. Nontender Skin: Warm and dry. Extremities: No cyanosis, clubbing, or edema. Radial and pedal pulses intact. Neurological: Alert but Mumbles. Cranial nerves 2-12 are grossly intact. Generalized weakness without gross focal findings. Psychiatric: Pleasantly confused Objective Data Vital Signs Vital Signs: Vital Signs - 24 hr 07/17/24 20:00 07/17/24 22:00 07/18/24 06:00 Temperature 97.2 F L 98 F Pulse Rate 100 100 101 H Respiratory Rate 18 18 18 Blood Pressure 110/64 127/90 Pulse Oximetry 92 92 95 Oxygen Delivery Nasal Cannula Oxygen Flow Rate 2 Fraction of Inspired Oxygen 07/18/24 07:53 07/18/24 07:53 07/18/24 08:17 Temperature Pulse Rate 77 Respiratory Rate 18 Blood Pressure Pulse Oximetry 95 Oxygen Delivery Nasal Cannula Nasal Cannula Oxygen Flow Rate 2 2 Fraction of Inspired Oxygen 07/18/24 14:00 Temperature 97.9 F Pulse Rate 100 Respiratory Rate 18 Blood Pressure 108/62 Pulse Oximetry 94 Oxygen Delivery Oxygen Flow Rate Fraction of Inspired Oxygen Intake/Output Intake/Output: Intake & Output 07/15/24 07/16/24 07/17/24 07/18/24 23:59 23:59 23:59 23:59 Intake Total 306 450 8513 707.5 Output Total 30 400 100 Balance 940 150 660 607.5 Meds/Results Medications: Active Medications Generic Name Dose Route Start Last Admin Trade Name Freq PRN Reason Stop Dose Admin Acetaminophen 650 mg 07/14/24 21:30 07/15/24 22:03 Acetaminophen 325 Mg Tablet PO 650 mg Q4H PRN Administration Mild Pain (1-3) or Fever Amiodarone HCl 200 mg 07/15/24 08:00 07/18/24 10:04 Amiodarone Hcl 200 Mg Tablet PO Not Given DAILY@0800 [facility] Bisacodyl 10 mg 07/14/24 23:58 Bisacodyl 10 Mg Suppository RECTAL DAILY PRN constipation Bupropion HCl 100 mg 07/15/24 09:00 07/18/24 10:05 Bupropion Hcl 100 Mg Tablet PO Not Given DAILY [facility] Diclofenac Sodium 1 applic 07/15/24 09:00 07/18/24 10:27 Diclofenac Sodium 1% 100 Gm Gel (*Bkc) TOPICAL 1 applic TID [facility] Administration Docusate Sodium 100 mg 07/14/24 23:58 Docusate Sodium 100 Mg Capsule PO DAILY PRN constipation Folic Acid 1 mg 07/15/24 09:00 07/18/24 10:06 Folic Acid 1 Mg Tablet PO Not Given DAILY [facility] Potassium Chloride/Dextrose 1,000 mls @ 100 mls/hr 07/17/24 10:00 07/18/24 02:37 Kcl 20 Meq/D5w 1,000 Ml IV CONT 50 mls/hr .Q10H [facility] Administration Doxycycline Hyclate 100 mg in 100 mls @ 100 mls/hr 07/17/24 09:30 07/18/24 10:26 Vibramycin 100 Mg/Ns 100 Ml IVPB 07/20/24 09:59 100 mls/hr Q12HR [facility] Administration Potassium Chloride 40 meq/ 1,020 mls @ 130 mls/hr 07/18/24 08:00 07/18/24 10:26 Dextrose IVPB 07/18/24 15:50 130 mls/hr ONCE ONE Administration Cefazolin Sodium 2 gm in 50 mls @ 100 mls/hr 07/18/24 21:00 Ancef 2 Gm/D5w 50 Ml IVPB Q12HR [facility] Lactobacillus Acidophilus 1 tablet 07/15/24 09:00 07/18/24 10:05 Acidophilus/Bulgaricus Chewable Tablet BY MOUTH Not Given BID [facility] Levothyroxine Sodium 75 mcg 07/15/24 06:30 07/18/24 05:32 Levothyroxine Sodium 75 Mcg Tablet PO Not Given DAILY@0630 [facility] Melatonin 3 mg 07/15/24 00:15 07/17/24 21:43 Melatonin 3 Mg Tablet PO Not Given QHS [facility] Midodrine 2.5 mg 07/15/24 09:00 07/18/24 10:06 Midodrine Hcl 2.5 Mg Tablet PO Not Given 0900,1600 [facility] Morphine Sulfate 1 mg 07/16/24 09:01 07/18/24 05:40 Morphine Sulfate (*Crx) 2 Mg/Ml Inj IV PUSH 1 mg Q4H PRN Administration severe pain Multivitamins/Minerals 1 tablet 07/15/24 09:00 07/18/24 10:06 Opti-Gen Tab PO Not Given QAM [facility] Ondansetron HCl 4 mg 07/14/24 21:30 Ondansetron Inj 4 Mg/2 Ml Vial IV PUSH Q4H PRN Nausea Pantoprazole Sodium 20 mg 07/15/24 00:15 07/17/24 21:43 Pantoprazole Sod Sesquihydrate 20 Mg Tab PO Not Given QHS [facility] Potassium Chloride 10 meq 07/15/24 08:00 07/18/24 10:05 Potassium Chloride 10 Meq Er Tablet PO Not Given DAILY@0800 [facility] Fluticasone/Salmeterol 2 puff 07/15/24 08:00 07/18/24 07:53 Fluticasone/Salmeterol 230-21 Mcg Inhaler 1 Puff INHALATION 2 puff Q12HRT [facility] Administration Sertraline HCl 100 mg 07/15/24 09:00 07/18/24 10:05 Sertraline Hcl 50 Mg Tablet PO Not Given DAILY [facility] Vitamin D 1,000 units 07/15/24 09:00 07/18/24 10:06 Cholecalciferol 1,000 Units Tablet PO Not Given DAILY [facility] Radiology Results: ITS Impressions Abdomen/Pelvis CT 07/14/24 20:51 IMPRESSION: Periportal edema with patchy infiltration of the bilateral lung bases. Fecal impaction. Small fat-containing right inguinal hernia. Chest X-Ray 07/15/24 14:55 Impression: 1: Patchy bilateral airspace disease, compatible with pneumonia. Labs Labs: Laboratory Results - last 24 hr 07/15/24 07/17/24 07/18/24 05:14 14:51 06:01 WBC 12.4 H RBC 3.82 L Hgb 11.4 L Hct 38.4 MCV 100.5 H MCH 29.8 MCHC 29.7 L RDW 15.7 H Plt Count 41 L MPV 13.1 H Immature Gran % (Auto) 1.0 H Neut % (Auto) 84.6 H Lymph % (Auto) 7.0 L [place] % (Auto) 6.9 Eos % (Auto) 0.1 Baso % (Auto) 0.4 Lymph # (Auto) 0.87 L [place] # (Auto) 0.9 H Eos # (Auto) 0.0 Baso # (Auto) 0.1 Abs Immat Gran (auto) 0.13 H Absolute Neuts (auto) 10.5 H Absolute Nucleated RBC 0.000 Band Neutrophils % Not Reportable Nucleated RBC % 0.0 Platelet Estimate Decreased % Immature Plt Fraction 11.9 H Anisocytosis 1+ Ovalocytes 1+ Guero Cells 2+ Schistocytes Rare Sodium 151 H 149 H Potassium 3.6 3.3 L Chloride 121 H 122 H Carbon Dioxide 21 L 17 L Anion Gap 9 10 BUN 54 H 47 H Creatinine 1.16 H 1.05 H Estim Creat Clear Calc 27 29 Estimated GFR 44 L 50 L Glucose 134 H 137 H Calcium 9.7 9.6 Magnesium 1.8 Total Bilirubin 0.6 AST 72 H ALT 36 H Alkaline Phosphatase 109 Total Protein 5.0 L Albumin 2.4 L Ur L.pneumophila Ag Not detected Urine Pneumococcal Ag Not detected
[2024-07-18 21:15] VITALS: O2SAT 93
[2024-07-18 22:00] VITALS: BP 101/66; PULSE 101; RESP 18; TEMP 36.6; O2SAT 92
[2024-07-19] VITALS (7 sets, daily range): BP systolic 102–118; BP diastolic 59–65; PULSE 96–103; RESP 18–24; TEMP 36.8–36.9; O2SAT 90–95
[2024-07-19] MEDS: DOXYCYCLINE 100 MG/NS 100 ML 100 MG/100 ML BAG IVPB ×2 (00:25→09:39)
[2024-07-19] MEDS: MORPHINE SULFATE (*CRX) 2 MG/ML INJ 1 MG IV PUSH ×2 (00:27→10:13)
[2024-07-19] MEDS: ceFAZolin 2 GM/D5W 50 ML 2 GM/50 ML BAG IVPB ×2 (01:48→10:07)
[2024-07-19] MEDS: KCL 20 MEQ/D5W 1,000 ML 1,000 ML 100 ML IV CONT (05:44)
[2024-07-19 06:24] LABS: Basophils Percent Auto 0.2 % (0.2-1.2); Eosinophils Absolute Auto 0.1 K/mm3 (0-0.3); Eosinophils Percent Auto 0.4 % (0-4.4); Hematocrit 34.8 % (37.0-47.0); Hemoglobin 10.9 g/dL (12.0-15.0); Immature Granulocyte Absolute 0.18 K/mm3 (0.00-0.031); Immature Granulocyte Percent A 1.3 % (0-0.5); Lymphocytes Absolute Auto 0.79 K/mm3 (0.9-3.2); Lymphocytes Percent Auto 5.7 % (18.3-44.2); Mean Corpuscular HGB Conc 31.3 g/dl (32-36); Mean Corpuscular Hemoglobin 30.4 pg (26-34); Mean Corpuscular Volume 96.9 fl (80-100); Mean Platelet Volume 13.7 fl (7.4-10.4); Monocytes Absolute Auto 0.6 K/mm3 (0.1-0.6); Monocytes Percent Auto 4.1 % (2.6-8.5); Neutrophils Absolute Auto 12.2 K/mm3 (1.3-6.7); Neutrophils Percent Auto 88.3 % (45.5-73.1); Platelet Count Result 30 k/mm3 (150-375); Red Blood Count 3.59 M/mm3 (4.2-5.4); Red Cell Distribution Width 15.5 % (11.5-14.5); White Blood Count 13.8 K/mm3 (4.5-10.0)
[2024-07-19 06:33] LABS: Alanine Aminotransferase 29 U/L (6-35); Albumin Level 2.2 g/dL (3.5-5.1); Alkaline Phosphatase 106 U/L (38-126); Anion Gap 7 mmol/L (4-12); Aspartate Amino Transferase 98 U/L (14-36); Bilirubin,Total 0.5 mg/dL (0.2-1.3); Blood Urea Nitrogen 39 mg/dL (7-17); Calcium 9.2 mg/dL (8.4-10.2); Carbon Dioxide 21 mmol/L (22-30); Chloride 119 mmol/L (98-107); Estimated CRCL calculation 31 ml/min; Estimated Glomerular Filt Rate 54; Glucose 111 mg/dL (65-110); Magnesium 1.6 mg/dL (1.6-2.3); Potassium 3.7 mmol/L (3.4-5.0); Sodium 147 mmol/L (137-145)
[2024-07-19] MEDS: SERTRALINE HCL 50 MG TABLET 100 MG PO (09:43)
[2024-07-19] MEDS: CHOLECALCIFEROL 1,000 UNITS TABLET 1000 UNITS PO (09:43)
[2024-07-19] MEDS: ACIDOPHILUS/BULGARICUS CHEWABLE TABLET 1 TABLET BY MOUTH (09:43)
[2024-07-19] MEDS: buPROPion HCL 100 MG TABLET PO (09:43)
[2024-07-19] MEDS: AMIODARONE HCL 200 MG TABLET PO (09:43)
[2024-07-19] MEDS: FOLIC ACID 1 MG TABLET PO (09:44)
[2024-07-19] MEDS: OPTI-GEN TAB 1 TABLET PO (09:44)
[2024-07-19] MEDS: MIDODRINE HCL 2.5 MG TABLET PO (09:53)
[2024-07-19] MEDS: DICLOFENAC SODIUM 1% 100 GM GEL (*BKC) 1 APPLIC TOPICAL ×3 (09:54→18:05)
[2024-07-19] MEDS: metroNIDAZOLE 500 MG TABLET FEED TUBE (12:27)
--- NOTE | 2024-07-19 13:06 | PM.IMPN ---
Progress Note: A&P Assessment and Plan (1) Sepsis: Code(s): A41.9 - Sepsis, unspecified organism Status: Acute (2) Urinary tract infection: Code(s): N39.0 - Urinary tract infection, site not specified Status: Acute (3) Lung consolidation: Code(s): J18.1 - Lobar pneumonia, unspecified organism Status: Acute (4) Syncope: Code(s): R55 - Syncope and collapse Status: Acute (5) Acute on chronic kidney failure: Code(s): N17.9 - Acute kidney failure, unspecified; N18.9 - Chronic kidney disease, unspecified Status: Acute (6) Transaminitis: Code(s): R74.01 - Elevation of levels of liver transaminase levels Status: Acute (7) Heart failure with reduced ejection fraction: Code(s): I50.20 - Unspecified systolic (congestive) heart failure Status: Acute (8) Hypothyroidism: Code(s): E03.9 - Hypothyroidism, unspecified Status: Acute (9) Dementia: Code(s): F03.90 - Unspecified dementia, unspecified severity, without behavioral disturbance, psychotic disturbance, mood disturbance, and anxiety Status: Acute Plan This is an 84-year-old female with history of dementia, heart failure with reduced ejection fraction, severe aortic stenosis status post TAVR, coronary artery disease, right atrial myxoma, hypertension, hyperlipidemia, depression, and anxiety who presented to the emergency department via EMS for evaluation after syncopal episode. She has been having problems with orthostatic hypotension and recently had her tamsulosin, donepezil, and memantine. She is not eating much and has been losing weight. Today she reportedly had a brief syncopal episode while transferring. Staff at her memory care facility also mention that she has had pus in her urine for about a week. She also reported or abdominal discomfort. She also endorses mild dysuria. No chest pain. She has also been noted to be coughing frequently. In the ED: She was afebrile on arrival with a blood pressure was 94/56. CT of the abdomen and pelvis showed fecal impaction and a small fat containing right inguinal hernia. Visualized portions of the lower lung showed patchy bibasilar opacification with right basilar consolidation. Labs were significant for WBC count of 10.9 with 15% bands, BUN 63, creatinine 2.07, lactic acid 3.5, AST 240, ALT 122, alkaline phosphatase 152. She was given 2 L normal saline bolus with improvement her blood pressures. She was also started on ceftriaxone for urinary tract infection and she is being admitted in this setting for further treatment. She also had decubitus ulcer developed in her coccyx She meets sepsis criteria on arrival with hypotension, leukocytosis with bandemia, acute on chronic kidney injury, and lactic acidosis in the setting of infection. Source of infection appears to be her urine however CT scan shows some consolidation at the right base as well. She has been started on ceftriaxone and doxycycline. Possible aspiration and will have swallow study performed. She will be kept NPO. Discussed Dobbhoff placement and to start feeding for continued medical treatment which was placed this a.m. 07/19/2024. Patient continued to decline despite adequate treatment. Goals of care discussion with family led to decision of initiating comfort measures at this point. Will also consult hospice team. She may need GIP hospice. Will place on morphine IV p.r.n. and Ativan IV p.r.n. Pancultured. Follow cultures Borderline blood pressure improved with IV hydration. Patient also on midodrine at home. Blood pressure currently stable Elevated LFTs stable improved CECIL on CKD stage 3 baseline creatinine low 1s. Admission creatinine 2. Continue IV hydration continues to improve. Decubitus ulcer wound care consult Hypernatremia: Switch fluid to D5 water times slowly improving Pneumonia ceftriaxone and doxycycline Bacteremia with Gram-positive cocci in clusters. Added vancomycin identified as MSSA. Switched to Ancef. Cardiomyopathy noted with EF 20-25% severe hypokinesis of the mid to distal LV with preserved wall motion of the basal segments. 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 Patient currently NPO due to dysphagia for GDMT Thrombocytopenia likely due to sepsis and bacteremia continues to worsen History of orthostatic hypotension history of heart failure with reduced ejection fraction recheck echo Dementia History of anemia likely hemoconcentrated on admission. 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 DNR DVT prophylaxis SCDs Subjective Date/time seen: 07/19/24 13:06 Interval history: Patient only mumbles. Underwent Dobbhoff placement this a.m.. Discussed with family at bedside. Some on the phone. Review of Systems Review of Systems: ROS unobtainable: Yes unobtainable due to mental status Exam Narrative: General: Thin, frail elderly female supine in bed. HEENT: Normocephalic, atraumatic. PERRL, EOMI. Sclera anicteric. Dry mucous membranes. Neck: Supple. No JVD. Respiratory: Respirations are nonlabored. Lung sounds are diminished due to poor effort. Occasional cough oral Cardiovascular: Regular rate and rhythm with S1-S2. Systolic murmur at the upper sternal border and left lower sternal border. Gastrointestinal: Abdomen is soft and nondistended with positive bowel sounds. Nontender Skin: Warm and dry. Extremities: No cyanosis, clubbing, or edema. Radial and pedal pulses intact. Neurological: Somnolent mumbles Cranial nerves 2-12 are grossly intact. Generalized weakness without gross focal findings. Psychiatric: Pleasantly confused Objective Data Vital Signs Vital Signs: Vital Signs - 24 hr 07/18/24 14:00 07/18/24 21:15 07/18/24 22:00 Temperature 97.9 F 98 F Pulse Rate 100 101 H Respiratory Rate 18 18 Blood Pressure 108/62 101/66 Pulse Oximetry 94 93 92 Oxygen Delivery Nasal Cannula Oxygen Flow Rate 2 07/19/24 05:48 07/19/24 09:43 07/19/24 10:11 Temperature 98.2 F Pulse Rate 103 H 103 H Respiratory Rate 18 Blood Pressure 102/59 L Pulse Oximetry 93 95 Oxygen Delivery Nasal Cannula Oxygen Flow Rate 2 Intake/Output Intake/Output: Intake & Output 07/16/24 07/17/24 07/18/24 07/19/24 23:59 23:59 23:59 23:59 Intake Total 150 1060 807.5 1700 Output Total 400 300 Balance 150 660 507.5 1700 Meds/Results Medications: Active Medications Generic Name Dose Route Start Last Admin Trade Name Freq PRN Reason Stop Dose Admin Acetaminophen 650 mg 07/14/24 21:30 07/15/24 22:03 Acetaminophen 325 Mg Tablet PO 650 mg Q4H PRN Administration Mild Pain (1-3) or Fever Amiodarone HCl 200 mg 07/15/24 08:00 07/19/24 09:43 Amiodarone Hcl 200 Mg Tablet PO 200 mg DAILY@0800 JO[facility] Administration Bisacodyl 10 mg 07/14/24 23:58 Bisacodyl 10 Mg Suppository RECTAL DAILY PRN constipation Bupropion HCl 100 mg 07/15/24 09:00 07/19/24 09:43 Bupropion Hcl 100 Mg Tablet PO 100 mg DAILY [facility] Administration Diclofenac Sodium 1 applic 07/15/24 09:00 07/19/24 09:54 Diclofenac Sodium 1% 100 Gm Gel (*Bkc) TOPICAL 1 applic TID [facility] Administration Docusate Sodium 100 mg 07/14/24 23:58 Docusate Sodium 100 Mg Capsule PO DAILY PRN constipation Folic Acid 1 mg 07/15/24 09:00 07/19/24 09:44 Folic Acid 1 Mg Tablet PO 1 mg DAILY [facility] Administration Potassium Chloride/Dextrose 1,000 mls @ 100 mls/hr 07/17/24 10:00 07/19/24 05:44 Kcl 20 Meq/D5w 1,000 Ml IV CONT 100 mls/hr .Q10H [facility] Administration Doxycycline Hyclate 100 mg in 100 mls @ 100 mls/hr 07/17/24 09:30 07/19/24 10:39 Vibramycin 100 Mg/Ns 100 Ml IVPB 07/20/24 09:59 Infused Q12HR [facility] Infusion Cefazolin Sodium 2 gm in 50 mls @ 100 mls/hr 07/19/24 16:00 Ancef 2 Gm/D5w 50 Ml IVPB Q8HR [facility] Lactobacillus Acidophilus 1 tablet 07/15/24 09:00 07/19/24 09:43 Acidophilus/Bulgaricus Chewable Tablet BY MOUTH 1 tablet BID [facility] Administration Levothyroxine Sodium 75 mcg 07/15/24 06:30 07/19/24 05:44 Levothyroxine Sodium 75 Mcg Tablet PO Not Given DAILY@0630 [facility] Melatonin 3 mg 07/15/24 00:15 07/18/24 22:28 Melatonin 3 Mg Tablet PO Not Given QHS [facility] Metronidazole 500 mg 07/19/24 21:00 Metronidazole 500 Mg Tablet FEED TUBE Q8HR [facility] Midodrine 2.5 mg 07/15/24 09:00 07/19/24 09:53 Midodrine Hcl 2.5 Mg Tablet PO 2.5 mg 0900,1600 [facility] Administration Morphine Sulfate 1 mg 07/16/24 09:01 07/19/24 10:13 Morphine Sulfate (*Crx) 2 Mg/Ml Inj IV PUSH 1 mg Q4H PRN Administration severe pain Multivitamins/Minerals 1 tablet 07/15/24 09:00 07/19/24 09:44 Opti-Gen Tab PO 1 tablet QAM [facility] Administration Ondansetron HCl 4 mg 07/14/24 21:30 Ondansetron Inj 4 Mg/2 Ml Vial IV PUSH Q4H PRN Nausea Pantoprazole Sodium 20 mg 07/15/24 00:15 07/18/24 22:28 Pantoprazole Sod Sesquihydrate 20 Mg Tab PO Not Given QHS [facility] Potassium Chloride 10 meq 07/15/24 08:00 07/19/24 11:19 Potassium Chloride 10 Meq Er Tablet PO Not Given DAILY@0800 [facility] Fluticasone/Salmeterol 2 puff 07/15/24 08:00 07/19/24 10:10 Fluticasone/Salmeterol 230-21 Mcg Inhaler 1 Puff INHALATION Not Given Q12HRT [facility] Sertraline HCl 100 mg 07/15/24 09:00 07/19/24 09:43 Sertraline Hcl 50 Mg Tablet PO 100 mg DAILY [facility] Administration Vitamin D 1,000 units 07/15/24 09:00 07/19/24 09:43 Cholecalciferol 1,000 Units Tablet PO 1,000 units DAILY [facility] Administration Radiology Results: ITS Impressions Abdomen/Pelvis CT 07/14/24 20:51 IMPRESSION: Periportal edema with patchy infiltration of the bilateral lung bases. Fecal impaction. Small fat-containing right inguinal hernia. Chest X-Ray 07/15/24 14:55 Impression: 1: Patchy bilateral airspace disease, compatible with pneumonia. Tube Placement 07/19/24 08:08 IMPRESSION: 1. Fluoroscopy guided nasoenteric tube placement with tip in the stomach. Labs Labs: Laboratory Results - last 24 hr 07/19/24 05:37 WBC 13.8 H RBC 3.59 L Hgb 10.9 L Hct 34.8 L MCV 96.9 MCH 30.4 MCHC 31.3 L RDW 15.5 H Plt Count 30 L MPV 13.7 H Immature Gran % (Auto) 1.3 H Neut % (Auto) 88.3 H Lymph % (Auto) 5.7 L [place] % (Auto) 4.1 Eos % (Auto) 0.4 Baso % (Auto) 0.2 Lymph # (Auto) 0.79 L [place] # (Auto) 0.6 Eos # (Auto) 0.1 Baso # (Auto) 0.0 Abs Immat Gran (auto) 0.18 H Absolute Neuts (auto) 12.2 H Absolute Nucleated RBC 0.000 Nucleated RBC % 0.0 % Immature Plt Fraction 18.0 H Sodium 147 H Potassium 3.7 Chloride 119 H Carbon Dioxide 21 L Anion Gap 7 BUN 39 H Creatinine 0.98 Estim Creat Clear Calc 31 Estimated GFR 54 L Glucose 111 H Calcium 9.2 Magnesium 1.6 Total Bilirubin 0.5 AST 98 H ALT 29 Alkaline Phosphatase 106 Total Protein 5.0 L Albumin 2.2 L
[2024-07-19 17:19] LABS: Mycoplasma IgM Antibody Titer 135 U/mL
[2024-07-19] MEDS: FLUTICASONE/SALMETEROL 230-21 MCG INHALER 1 PUFF 2 PUFF INHALATION (20:35)
[2024-07-20] MEDS: MORPHINE SULFATE (*CRX) 2 MG/ML INJ 1 MG IV PUSH (05:29)
[2024-07-20 05:32] VITALS: BP 121/76; PULSE 118; RESP 18; TEMP 36.8; O2SAT 92
[2024-07-20 08:00] VITALS: RESP 24; O2SAT 93
[2024-07-20] MEDS: LORazepam INJ (*CRX) 2 MG/ML VIAL IV PUSH (08:48)
--- NOTE | 2024-07-20 18:51 | PM.DDS ---
Discharge Summary Date and Time Date of : 07/20/24 Time of : 11:05 Provider Pronounced By: 2 RNs Name of First RN That Pronounced: Keiry Bruner, RN Name of Second RN That Pronounced: Anabell Rodriguez RN Probable Cause of Probable Cause of : Septicemia Summary Hospital Course: Patient with sepsis with hypotension on admission. Source of infection appears to be her urine however urine cx negative and CT scan shows some consolidation at the right base as well. She was started on ceftriaxone and doxycycline. Possible aspiration and she was made NPO. Dobbhoff placed. Patient continued to decline despite adequate treatment. Goals of care discussed with family led to decision of initiating comfort measures. Patient was made comfortable and she passed on 07/20/24. Additional Data Confirmation of as documented by pronouncing clinician: Pupillary Reflex, Palpable Pulses, Response to Stimuli, Heart Tones and Breath Sounds Name of Provider Notified: Dr. Kirkland Time Provider Notified: 11:10 Provider Requests Autopsy: No Family Requests Autopsy: No Cloth Printer Notified: Yes Date [facility] Notified of : 07/20/24 Time [facility] Notified of : 11:17
== END 2024-07-20 11:05 | disposition expired | DRG 871 ==
LOC: ANHED 21:40 → ANH3MEDSUR 22:35
PROVIDERS: Internal Medicine; Physician Assistant; Admitting Provider Internal Medicine; Emergency Provider Emergency Medicine; PCP Physician Assistant Medical; Visit Provider Internal Medicine
DX: A41.01 Sepsis due to Methicillin susceptible Staphylococcus aureus (principal); J18.1 Lobar pneumonia, unspecified organism; I43 Cardiomyopathy in diseases classified elsewhere; I50.22 Chronic systolic (congestive) heart failure; N39.0 Urinary tract infection, site not specified; I13.0 Hypertensive heart and chronic kidney disease with heart failure and stage 1 through stage 4 chronic kidney disease, or unspecified chronic kidney disease; N17.9 Acute kidney failure, unspecified; E87.0 Hyperosmolality and hypernatremia; L89.159 Pressure ulcer of sacral region, unspecified stage; D15.1 Benign neoplasm of heart; D64.9 Anemia, unspecified; D69.6 Thrombocytopenia, unspecified; E03.9 Hypothyroidism, unspecified; E78.5 Hyperlipidemia, unspecified; F03.C0 Unspecified dementia, severe, without behavioral disturbance, psychotic disturbance, mood disturbance, and anxiety; F41.8 Other specified anxiety disorders; I25.10 Atherosclerotic heart disease of native coronary artery without angina pectoris; I08.1 Rheumatic disorders of both mitral and tricuspid valves; N18.30 Chronic kidney disease, stage 3 unspecified; R74.01 Elevation of levels of liver transaminase levels; Z95.2 Presence of prosthetic heart valve; Z96.651 Presence of right artificial knee joint; Z90.49 Acquired absence of other specified parts of digestive tract; Z66 Do not resuscitate
CPT/HCPCS: 36415; 43752; 71045; 74176; 80048; 80053; 80202; 81001; 82550; 83605; 83690; 83735; 84439; 84443; 85025; 85027; 85055; 86738; 87040; 87070; 87075; 87086; 87181; 87205; 87449; 87641; 87899; 92610; 93306; 94640; 96361; 96365; 96375; 99212; 99285; A9270; G0378; G0463; J0690; J0696; J2060; J2270; J3370; J3475; J3480; J7030; J7070